=== PATIENT | male | born 1965 | race Hispanic/Latino ===

== ENCOUNTER 2017-10-22 17:42 | Emergency (ER) | payer SELFPAY ==
--- NOTE | 2017-10-22 18:25 | RAD REPORT ---
EXAM DESCRIPTION: Anil Single View10/22/2017 6:10 pm CLINICAL HISTORY: Chest pain COMPARISON: August 2016 FINDINGS: The lungs appear clear of acute infiltrate. The heart is normal size. A small left pleura l effusion may be present
--- NOTE | 2017-10-22 18:29 | EKG ---
Test Date: 2017-10-22 Test Time: 17:50:42 Lyric Writer: REJI MEASUREMENT RESULTS: Intervals: Rate: 89 FL: 142 QRSD: 120 QT: 378 QTc: 459 [place]: P: 36 FL: 142 QRS: 254 T: -8 INTERPRETIVE STATEMENTS: Normal sinus rhythm Right bundle branch block Inferior infarct, age undetermined Abnormal ECG Compared to ECG 09/05/2016 10:28:38 Myocardial infarct finding now present Electronically Signed On 10-22-17 18:28:51 CDT by Zeeshan Holguin
[2017-10-22 18:32] LABS: Absolute Monocytes 0.8 K/uL (0.1-1.3); Absolute Neutrophil 6.7 K/uL (1.8-8.0); Eosinophils % 2.5 % (0-4.4); Hematocrit 39.4 % (39.6-49.0); Lymphocytes % 20.6 % (15.3-44.8); MCH 28.2 pg (27.0-35.0); MCV 82.7 fL (80-100); MPV 9.9 fL (7.6-11.3); Monocytes % 7.9 % (3.3-12.3); RBC Red Blood Cell Count 4.77 M/uL (4.33-5.43)
[2017-10-22 18:35] LABS: Protime INR 0.99
[2017-10-22 18:46] LABS: Potassium 3.6 mEq/L (3.6-5.0)
[2017-10-22 18:53] LABS: Albumin 4.1 g/dL (3.2-5.5); Bilirubin Direct 0.1 mg/dL (0-0.2); Bilirubin Total 0.7 mg/dL (0.3-1.2); Magnesium 1.6 mg/dL (1.8-2.5)
[2017-10-22] MEDS ORDERED: HEPARIN/D5W 25,000 UNIT/500 ML BAG IV ONE (19:25)
[2017-10-22] MEDS ORDERED: Magnesium Sulfate 2gm IVPB 2 G/50 ML BAG IV ONE (19:25)
[2017-10-22] MEDS ORDERED: ASPIRIN 81 MG CHEWABLE TABLET ONE (19:25)
[2017-10-22] MEDS ORDERED: FENTANYL CITR 100 MCG/2 ML ONE (19:29)
--- NOTE | 2017-10-22 19:59 | EDPHYS ---
Physician Documentation [facility] Name: Abilio Ling Age: 52 yrs Sex: Male : 1965 Arrival Date: 10/22/2017 Time: 17:51 Bed 8 Private MD: ED Physician Jad Pearson HPI: 10/22 19:13 This 52 yrs old Male presents to ER via EMS with complaints of Chest Pain. jr8 19:13 The patient or guardian reports chest pain that is located primarily in the substernal jr8 area. Onset: acutely, today. The pain does not radiate. Associated signs and symptoms: The patient has no apparent associated signs or symptoms. The chest pain is described as a pressure. Duration: The patient or guardian reports a single episode. Severity of pain: At its worst the pain was moderate. The patient has experienced a previous episode. The patient has been recently seen by a physician:. Patient stated that he had OK this past . Stated that he went to [facility] and was admitted. Had angiogram done but was not able to have stent due to severity of plaquing. Was told he needed to have CABG. Patient stated that they were going back and forth about transferring that weekend for CABG but discharged him on Friday. Today was going to go back to work but was woken up by chest pain today . Historical: - Allergies: 18:00 No Known Allergies; aj1 - Home Meds: 18:00 metformin 500 mg Oral tab 1 tab 2 times per day [Active]; aspirin 81 mg Oral chew 1 tab aj1 once daily [Active]; atorvastatin 40 mg oral tab 1 tab once daily [Active]; clonazepam 1 mg Oral tab 1 tab 2 times per day [Active]; Plavix 75 mg Oral tab 1 tab once daily [Active]; Imdur 30 mg Oral Tb24 1 tab once daily [Active]; Lopressor 25 mg Oral 2 times per day [Active]; - PMHx: 18:00 Anxiety; Diabetes - NIDDM; Hypertension; Myocardial infarction; aj1 - PSHx: 18:00 cardiac cath; aj1 - Immunization history:: Flu vaccine is not up to date. - Social history:: Smoking status: Patient/guardian denies using tobacco. - Ebola Screening: : Patient denies travel to an Ebola-affected area in the 21 days before illness onset. ROS: 19:13 Eyes: Negative for injury, pain, redness, and discharge, ENT: Negative for injury, jr8 pain, and discharge, Neck: Negative for injury, pain, and swelling, Respiratory: Negative for shortness of breath, cough, wheezing, and pleuritic chest pain, Abdomen/GI: Negative for abdominal pain, nausea, vomiting, diarrhea, and constipation, Back: Negative for injury and pain, MS/Extremity: Negative for injury and deformity, Skin: Negative for injury, rash, and discoloration, Neuro: Negative for headache, weakness, numbness, tingling, and seizure. 19:13 Cardiovascular: Positive for chest pain, Negative for edema, orthopnea, palpitations, paroxysmal nocturnal dyspnea. Exam: 19:13 Eyes: Pupils equal round and reactive to light, extra-ocular motions intact. Lids and jr8 lashes normal. Conjunctiva and sclera are non-icteric and not injected. Cornea within normal limits. Periorbital areas with no swelling, redness, or edema. ENT: Nares patent. No nasal discharge, no septal abnormalities noted. Tympanic membranes are normal and external auditory canals are clear. Oropharynx with no redness, swelling, or masses, exudates, or evidence of obstruction, uvula midline. Mucous membranes moist. Neck: Trachea midline, no thyromegaly or masses palpated, and no cervical lymphadenopathy. Supple, full range of motion without nuchal rigidity, or vertebral point tenderness. No Meningismus. Cardiovascular: Regular rate and rhythm with a normal S1 and S2. No gallops, murmurs, or rubs. Normal PMI, no JVD. No pulse deficits. Respiratory: Lungs have equal breath sounds bilaterally, clear to auscultation and percussion. No rales, rhonchi or wheezes noted. No increased work of breathing, no retractions or nasal flaring. Abdomen/GI: Soft, non-tender, with normal bowel sounds. No distension or tympany. No guarding or rebound. No evidence of tenderness throughout. Back: No spinal tenderness. No costovertebral tenderness. Full range of motion. Skin: Warm, dry with normal turgor. Normal color with no rashes, no lesions, and no evidence of cellulitis. Bruising noted to right arm from angiogram MS/ Extremity: Pulses equal, no cyanosis. Neurovascular intact. Full, normal range of motion. Neuro: Awake and alert, GCS 15, oriented to person, place, time, and situation. Cranial nerves II-XII grossly intact. Motor strength 5/5 in all extremities. Sensory grossly intact. Cerebellar exam normal. Normal gait. Vital Signs: 17:52 BP 122 / 81; Pulse 87; Resp 24; Temp 98.1(O); Pulse Ox 96% on R/A; Weight 80.74 kg (R); aj1 Height 5 ft. 7 in. (170.18 cm) (R); Pain 3/10; 19:20 Weight 81.06 kg (M); lp1 19:30 BP 118 / 91; Pulse 82; Resp 16; Pulse Ox 98% on R/A; lp1 20:00 BP 120 / 82; Pulse 76; Resp 18; Temp 97.6(O); Pulse Ox 98% on R/A; lp1 21:00 BP 116 / 78; Pulse 77; Resp 14; Pulse Ox 96% on R/A; lp1 21:48 BP 134 / 84; Pulse 78; Resp 20 S; Temp 97.4; Pulse Ox 98% on R/A; Pain 7/10; bb 19:20 Body Mass Index 27.99 (81.06 kg, 170.18 cm) lp1 MDM: 17:54 Patient medically screened. jr8 19:55 The patient was not given aspirin in the Emergency Department. Administered by EMS. jr8 Data reviewed: vital signs, nurses notes, lab test result(s), EKG, radiologic studies, plain films, and as a result, I will admit patient. Data interpreted: Pulse oximetry: on room air is 96 %. Interpretation: normal. Counseling: I had a detailed discussion with the patient and/or guardian regarding: the historical points, exam findings, and any diagnostic results supporting the discharge/admit diagnosis, lab results, radiology results, the need to transfer to another facility, [facility] does not immediately have the required specialist. ED course: Based on history and recent events and procedures. It would be best to send to [facility] for further evaluation by cardiology and if needed for CABG. [facility] agrees and will See patient. 10/22 17:54 Order name: Basic Metabolic Panel; Complete Time: 19:05 jr8 10/22 17:54 Order name: BNP; Complete Time: 19:05 10/22 17:54 Order name: CBC with Diff; Complete Time: 19:10/22 17:54 Order name: LFT's; Complete Time: 19:05 10/22 17:54 Order name: Magnesium; Complete Time: 19:05 10/22 17:54 Order name: PT-INR; Complete Time: 19:10/22 17:54 Order name: Troponin (emerg Dept Use Only); Complete Time: 19:05 10/22 17:54 Order name: XRAY Chest (1 view); Complete Time: 18:28 10/22 17:54 Order name: EKG; Complete Time: 17:54 10/22 17:54 Order name: Cardiac monitoring; Complete Time: 18:05 10/22 17:54 Order name: EKG - Nurse/Tech; Complete Time: 18:05 10/22 17:54 Order name: IV Saline Lock; Complete Time: 18:10/22 17:54 Order name: Labs collected and sent; Complete Time: 18:10/22 17:54 Order name: O2 Per Protocol; Complete Time: 18:05 10/22 17:54 Order name: O2 Sat Monitoring; Complete Time: 18:05 Administered Medications: 19:40 Drug: Magnesium Sulfate 2 grams Route: IVPB; Infused Over: 2 hrs; Site: left lp1 antecubital; 21:30 Follow up: IV Status: Completed infusion lp1 19:40 Drug: Heparin (OK Drip) 12 units/kg/hr - (HEParin 29205 units, D5W 500 ml) lp1 {Co-Signature: devin (Lexii Tony RN).} Route: IV; Rate: calculated rate; Site: left wrist; 21:50 Follow up: IV Status: Infusion continued upon transfer bb 19:40 Drug: fentaNYL (PF) 50 mcg Route: IVP; Site: left wrist; lp1 21:30 Follow up: Response: Pain is decreased lp1 21:49 Follow up: Response: No adverse reaction devin 19:51 Not Given (Given by EMS): Aspirin Chewable Tablet 324 mg PO once; 81 mg tablets x 4 lp1 21:52 Drug: fentaNYL (PF) 50 mcg Route: IVP; Site: left antecubital; lp1 21:52 Follow up: Response: medication adminstered on transfer to [place] [id number] Point of Care Testing: Blood Glucose: 21:25 Blood Glucose: 119 mg/dL; lp1 Ranges: Critical Glucose Levels:Adult <50 mg/dl or >400 mg/dl <40 mg/dl or >180 mg/dl Disposition: 10/23 07:29 Co-signature as Attending Physician, Jad Pearson MD I agree with the assessment and kdr plan of care. Disposition: 10/22/17 19:58 Transfer ordered to [facility]. Diagnosis are Unstable angina, Non-ST elevation (NSTEMI) myocardial infarction. - Reason for transfer: Higher level of care. - Accepting physician is Dr. Murrell. - Condition is Stable. - Problem is new. - Symptoms are unchanged. Signatures: Dispatcher [employer] EDMS Karen Curtis RN RN aj1 Jad Pearson MD MD kdr Little Merino RN RN lp1 Ulises Ramirez PA PA jr8 Lexii Tony RN bb Lexii Tony RN bb Corrections: (The following items were deleted from the chart) 10/22 19:17 19:13 Eyes: Pupils equal round and reactive to light, extra-ocular motions intact. Lids jr8 and lashes normal. Conjunctiva and sclera are non-icteric and not injected. Cornea within normal limits. Periorbital areas with no swelling, redness, or edema. ENT: Nares patent. No nasal discharge, no septal abnormalities noted. Tympanic membranes are normal and external auditory canals are clear. Oropharynx with no redness, swelling, or masses, exudates, or evidence of obstruction, uvula midline. Mucous membranes moist. Neck: Trachea midline, no thyromegaly or masses palpated, and no cervical lymphadenopathy. Supple, full range of motion without nuchal rigidity, or vertebral point tenderness. No Meningismus. Cardiovascular: Regular rate and rhythm with a normal S1 and S2. No gallops, murmurs, or rubs. Normal PMI, no JVD. No pulse deficits. Respiratory: Lungs have equal breath sounds bilaterally, clear to auscultation and percussion. No rales, rhonchi or wheezes noted. No increased work of breathing, no retractions or nasal flaring. Abdomen/GI: Soft, non-tender, with normal bowel sounds. No distension or tympany. No guarding or rebound. No evidence of tenderness throughout. Back: No spinal tenderness. No costovertebral tenderness. Full range of motion. Skin: Warm, dry with normal turgor. Normal color with no rashes, no lesions, and no evidence of cellulitis. MS/ Extremity: Pulses equal, no cyanosis. Neurovascular intact. Full, normal range of motion. Neuro: Awake and alert, GCS 15, oriented to person, place, time, and situation. Cranial nerves II-XII grossly intact. Motor strength 5/5 in all extremities. Sensory grossly intact. Cerebellar exam normal. Normal gait. jr8 19:58 19:58 10/22/2017 19:58 Transfer ordered to [facility]. Diagnosis is jr8 Unstable angina. Reason for transfer: Higher level of care. Accepting physician is Dr. Murrell. Condition is Stable. Problem is new. Symptoms are unchanged. jr8 21:53 19:58 10/22/2017 19:58 Transfer ordered to [facility]. Diagnosis is lp1 Unstable angina; Non-ST elevation (NSTEMI) myocardial infarction. Reason for transfer: Higher level of care. Accepting physician is Dr. Murrell. Condition is Stable. Problem is new. Symptoms are unchanged. jr8
--- NOTE | 2017-10-22 19:59 | ER ---
Nurse's Notes [facility] Name: Abilio Ling Age: 52 yrs Sex: Male : 1965 Arrival Date: 10/22/2017 Time: 17:51 Bed 8 Private MD: Diagnosis: Unstable angina;Non-ST elevation (NSTEMI) myocardial infarction Presentation: 10/22 17:52 Presenting complaint: EMS states: Pt had a OK 4 days ago, he had a cardiac cath aj1 performed, but they were unable to stent the blockage. He also did not poultry picker his prescriptions when he was discharged because he was unable to afford them. Today he began having pain on the left side of his chest, states the pain is similar to his OK, but is not as bad. Reports nausea and palpitations, denies syncope, diaphoresis, vomiting. Describes pain as a shooting, electric pain. Pt has dark purple bruising to his right arm from his cardiac cath. Patient is also complaining of pain the right arm, and headache. Transition of care: patient was not received from another setting of care. Onset of symptoms was October 22, 2017. Risk Assessment: Do you want to hurt yourself or someone else? Patient reports no desire to harm self or others. Initial Sepsis Screen: Does the patient meet any 2 criteria? No. Patient's initial sepsis screen is negative. Does the patient have a suspected source of infection? No. Patient's initial sepsis screen is negative. Care prior to arrival: None. 17:52 Method Of Arrival: EMS: [facility] aj1 17:52 Acuity: KARLA 2 aj1 Triage Assessment: 18:00 General: Appears in no apparent distress. comfortable, Behavior is calm, cooperative, aj1 appropriate for age. Pain: Complains of pain in anterior aspect of left upper chest Pain does not radiate. Pain currently is 3 out of 10 on a pain scale. Quality of pain is described as shooting, Is intermittent, Alleviated by nothing. Aggravated by increased activity. Cardiovascular: Heart tones S1 S2 present Patient's skin is warm and dry. Rhythm is sinus rhythm. Historical: - Allergies: 18:00 No Known Allergies; aj1 - Home Meds: 18:00 metformin 500 mg Oral tab 1 tab 2 times per day [Active]; aspirin 81 mg Oral chew 1 tab aj1 once daily [Active]; atorvastatin 40 mg oral tab 1 tab once daily [Active]; clonazepam 1 mg Oral tab 1 tab 2 times per day [Active]; Plavix 75 mg Oral tab 1 tab once daily [Active]; Imdur 30 mg Oral Tb24 1 tab once daily [Active]; Lopressor 25 mg Oral 2 times per day [Active]; - PMHx: 18:00 Anxiety; Diabetes - NIDDM; Hypertension; Myocardial infarction; aj1 - PSHx: 18:00 cardiac cath; aj1 - Immunization history:: Flu vaccine is not up to date. - Social history:: Smoking status: Patient/guardian denies using tobacco. - Ebola Screening: : Patient denies travel to an Ebola-affected area in the 21 days before illness onset. Screenin:02 Abuse screen: Denies threats or abuse. Denies injuries from another. Nutritional aj1 screening: No deficits noted. Tuberculosis screening: No symptoms or risk factors identified. 20:31 Fall Risk None identified. lp1 Assessment: 17:55 Reassessment: EKG at bedside. aj1 18:01 Reassessment: CXR at bedside. aj1 18:02 General: Appears in no apparent distress. uncomfortable, Behavior is calm, cooperative, aj1 appropriate for age. Pain: Complains of pain in anterior aspect of left upper chest Pain does not radiate. Pain currently is 3 out of 10 on a pain scale. Quality of pain is described as shooting, Pain began 2 hours ago. Is intermittent, Alleviated by nothing. Aggravated by increased activity. Neuro: Level of Consciousness is awake, alert, obeys commands, Oriented to person, place, time, situation, Speech is normal, Facial symmetry appears normal. Cardiovascular: Reports chest pain, shortness of breath, Heart tones S1 S2 present Patient's skin is warm and dry. Rhythm is sinus rhythm Chest pain is described as Pain is 3 out of 10 on a pain scale. quality is shooting, electric pain is located in left anterior chest wall began 2 hours prior to arrival episodes are intermittent is aggravated by activity. Respiratory: Reports shortness of breath Airway is patent Respiratory effort is even, unlabored, Respiratory pattern is regular, symmetrical, Breath sounds are clear bilaterally. GI: No signs and/or symptoms were reported involving the gastrointestinal system. : No signs and/or symptoms were reported regarding the genitourinary system. EENT: No signs and/or symptoms were reported regarding the EENT system. Derm: Skin is pink, warm \T\ dry. normal, Bruising that is dark purple, on right bicep. Musculoskeletal: No signs and/or symptoms reported regarding the musculoskeletal system. Circulation, motion, and sensation intact. 19:15 Reassessment: Patient is alert, oriented x 3, equal unlabored respirations, skin lp1 warm/dry/pink. States pain to R arm from prior cardiac cath. 20:30 Reassessment: Report called to Stefan for patient transfer to [facility] 1043. lp1 21:29 Reassessment: Patient and/or family updated on plan of care and expected duration. Pain lp1 level reassessed. Patient resting, eyes closed, respirations unlabored. 21:44 Reassessment: EMS at bedside for transfer of pt to [facility] pt is A\T\O x 4, bb resp unlabored, IV site intact, patent, with Heparin infusing. Pt c/o pain to right arm EDP notified. Vital Signs: 17:52 BP 122 / 81; Pulse 87; Resp 24; Temp 98.1(O); Pulse Ox 96% on R/A; Weight 80.74 kg (R); aj1 Height 5 ft. 7 in. (170.18 cm) (R); Pain 3/10; 19:20 Weight 81.06 kg (M); lp1 19:30 BP 118 / 91; Pulse 82; Resp 16; Pulse Ox 98% on R/A; lp1 20:00 BP 120 / 82; Pulse 76; Resp 18; Temp 97.6(O); Pulse Ox 98% on R/A; lp1 21:00 BP 116 / 78; Pulse 77; Resp 14; Pulse Ox 96% on R/A; lp1 21:48 BP 134 / 84; Pulse 78; Resp 20 S; Temp 97.4; Pulse Ox 98% on R/A; Pain 7/10; bb 19:20 Body Mass Index 27.99 (81.06 kg, 170.18 cm) lp1 ED Course: 17:51 Patient arrived in ED. aj1 17:53 Ulises Ramirez PA is PHCP. jr8 17:53 Jad Pearson MD is Attending Physician. jr8 17:55 Triage completed. aj1 18:00 Arm band placed on. aj1 18:02 Patient has correct armband on for positive identification. Bed in low position. Call aj1 light in reach. Side rails up X 1. cafeteria monitor on. Pulse ox on. NIBP on. 18:02 EKG done, by audio video tech. reviewed by Jad Pearson MD. sm3 18:02 No provider procedures requiring assistance completed. Maintain EMS IV. Dressing aj1 intact. Good blood return noted. Site clean \T\ dry. Gauge \T\ site: 20 g left AC. Patient maintains SpO2 saturation greater than 95% on room air. 18:05 Karen Curtis, RN is Primary Nurse. aj1 18:09 X-ray completed. Portable x-ray completed in exam room. Patient tolerated procedure ml well. 18:10 XRAY Chest (1 view) In Process Unspecified. EDMS 19:[address] [facility] with Margaret at the transfer center. eb 19:34 Margaret from the transfer called to say she is waiting for the property condition assessor doctor to eb return her page. 19:36 Dr. Duarte connected with [facility] for patient consultation for patient transfer. eb 19:49 connected the hospitalist from [facility] with [facility] for patient eb transfer consultation. 19:58 administrative approval give by Margaret Chin Marketing Analytics Specialist , Patient to go to Rm 1043. Report to be called to [phone]. 21:50 Patient transferred, IV remains in place. bb Administered Medications: 19:40 Drug: Magnesium Sulfate 2 grams Route: IVPB; Infused Over: 2 hrs; Site: left lp1 antecubital; 21:30 Follow up: IV Status: Completed infusion lp1 19:40 Drug: Heparin (OK Drip) 12 units/kg/hr - (HEParin 70717 units, D5W 500 ml) lp1 {Co-Signature: devin (Lexii Tony RN).} Route: IV; Rate: calculated rate; Site: left wrist; 21:50 Follow up: IV Status: Infusion continued upon transfer bb 19:40 Drug: fentaNYL (PF) 50 mcg Route: IVP; Site: left wrist; lp1 21:30 Follow up: Response: Pain is decreased lp1 21:49 Follow up: Response: No adverse reaction bb 19:51 Not Given (Given by EMS): Aspirin Chewable Tablet 324 mg PO once; 81 mg tablets x 4 lp1 21:52 Drug: fentaNYL (PF) 50 mcg Route: IVP; Site: left antecubital; lp1 21:52 Follow up: Response: medication adminstered on transfer to [facility] lp1 Point of Care Testing: Blood Glucose: 21:25 Blood Glucose: 119 mg/dL; lp1 Ranges: Outcome: 19:58 ER care complete, transfer ordered by MD. toribio 20:32 Condition: stable lp1 20:32 Instructed on the need for transfer. 21:50 Transferred by ground EMS to [facility], Transfer form completed. bb X-rays sent w/ patient. 21:53 Patient left the ED. lp1 Signatures: Dispatcher [employer] EDMS Karen Curtis RN RN aj1 Lexii Tony RN RN bb Giulia Tamayo Laura, RN RN lp1 Ulises Ramirez PA PA jr8 Bernadette Cummings Shakira 3 Lexii beltran Corrections: (The following items were deleted from the chart) 18:05 18:02 Derm: No signs and/or symptoms reported regarding the dermatologic system. Skin aj1 is pink, warm \T\ dry. normal, aj1 21:49 21:44 Reassessment: [facility] at bedside for transfer of pt to [facility] pt is A\T\O bb x 4, resp unlabored, IV site intact, patent, with Heparin infusing. bb
== END 2017-10-22 21:53 | disposition short-term general hospital (02) ==
LOC: ER 17:42
DX: I22.2 Subsequent non-ST elevation (NSTEMI) myocardial infarction (principal); I23.7 Postinfarction angina; I21.9 Acute myocardial infarction, unspecified; F41.9 Anxiety disorder, unspecified; E11.9 Type 2 diabetes mellitus without complications; I10 Essential (primary) hypertension
CPT/HCPCS: 36415; 71045; 80048; 80076; 82962; 83735; 83880; 84484; 85025; 85610; 93005; 99285; J3010; J3475

== ENCOUNTER 2018-01-22 13:05 | Inpatient (IN) | payer SELFPAY ==
--- NOTE | 2018-01-22 13:45 | RAD REPORT ---
EXAM DESCRIPTION: CT - Head Brain Wo Cont - 01/22/2018 1:34 pm CLINICAL HISTORY: Dizziness;Headache COMPARISON: Head Brain Wo Cont dated 06/14/2016 TECHNIQUE: All CT scans are performed using dose optimization technique as appropriate and may inclu de automated exposure control or mA/KV adjustment according to patient size. FINDINGS: No intracranial hemorrhage, hydrocephalus or extra-axial fluid collection.No areas of brai n edema or evidence of midline shift. The paranasal sinuses and mastoids are clear. The calvarium is intact. IMPRESSION: No acute intracranial abnormality.
[2018-01-22] MEDS ORDERED: ACETAMINOPHEN 325 MG TABLET ONE (15:10)
[2018-01-22 15:15] LABS: Urine Blood TRACE (NEG); Urine Glucose TRACE (NEG); Urine Protein 3+ (NEG)
[2018-01-22 15:16] LABS: Calcium Oxalate Crystals- Ur FEW (NONE SEEN); Urine Bacteria 20-50 /HPF (NONE SEEN); Urine Culture Reflex Order NOT NEEDED; Urine RBC NONE SEEN /HPF (NONE SEEN)
[2018-01-22 15:17] LABS: Urine Amorphous Sediment 1+ /HPF (NONE SEEN)
[2018-01-22 15:20] LABS: Protime INR 1.05
[2018-01-22 15:33] LABS: ALT/SGPT 94 U/L (12-78); AST/SGOT 42 U/L (15-37); Albumin 3.9 g/dL (3.4-5.0); Alkaline Phosphatase 110 U/L (45-117); BUN Blood Urea Nitrogen 22 mg/dL (7-18); Bicarbonate 26 mmol/L (21-32); Bilirubin Direct 0.1 mg/dL (0-0.2); Bilirubin Total 0.3 mg/dL (0.2-1.0); CKMB Creatine Kinase MB < 1.0 ng/mL (0.3-3.6); Creatine Phosphokinase 51 U/L (39-308); Glucose Level 298 mg/dL (74-106); Lipase 120 U/L (73-393); Potassium 3.9 mmol/L (3.5-5.1); Protein, Total 7.6 g/dL (6.4-8.2); Sodium Level 138 mmol/L (136-145)
[2018-01-22 15:36] LABS: Absolute Lymphocytes (CBC) 1.4 K/uL (0.7-4.9); Absolute Monocytes 0.7 K/uL (0.1-1.3); Absolute Neutrophil 14.8 K/uL (1.8-8.0); Basophils % 0.6 % (0-1.3); Eosinophils % 0.5 % (0-4.4); Hematocrit 43.2 % (39.6-49.0); Lymphocytes % 8.4 % (15.3-44.8); MCH 26.5 pg (27.0-35.0); MCV 79.5 fL (80-100); MPV 10.6 fL (7.6-11.3); Monocytes % 4.3 % (3.3-12.3); RBC Red Blood Cell Count 5.43 M/uL (4.33-5.43)
--- NOTE | 2018-01-22 16:20 | ER ---
Nurse's Notes [facility] Name: Abilio Ling Age: 52 yrs Sex: Male : 1965 Arrival Date: 01/22/2018 Time: 13:11 Bed 24 Private MD: Diagnosis: Acute kidney failure;Dehydration;Hyperglycemia, unspecified Presentation: 01/22 13:14 Presenting complaint: EMS states: about 45 minutes ago, while at work, the patient kr2 started having nausea, vomiting, dizziness and weakness. He is a diabetic, blood glucose on site was 312. He had a quadruple bypass in October. Transition of care: patient was not received from another setting of care. Onset of symptoms was January 22, 2018 at 12:30. Risk Assessment: Do you want to hurt yourself or someone else? Patient reports no desire to harm self or others. Initial Sepsis Screen: Does the patient meet any 2 criteria? No. Patient's initial sepsis screen is negative. Does the patient have a suspected source of infection? No. Patient's initial sepsis screen is negative. Care prior to arrival: Medication(s) given: Normal saline infusion, 400mL IV initiated. 20 GA, in the right forearm, Glucose check: 312. 13:14 Method Of Arrival: EMS: [facility] kr2 13:14 Acuity: KARLA 3 kr2 Triage Assessment: 13:22 General: Appears in no apparent distress. comfortable, well developed, well nourished, kr2 Behavior is calm, cooperative, appropriate for age. Pain: Denies pain. EENT: Nares are clear bilaterally Oral mucosa is dry. Neuro: Level of Consciousness is awake, alert, obeys commands, Oriented to person, place, time, situation, Appropriate for age. Cardiovascular: Capillary refill < 3 seconds in bilateral fingers Patient's skin is warm and dry. Respiratory: Airway is patent Respiratory effort is even, unlabored, Respiratory pattern is regular, symmetrical. GI: Abdomen is flat, non-distended, Bowel sounds present X 4 quads. Abd is soft and non tender X 4 quads. Reports nausea, vomiting, since 1230 today. : Denies burning with urination. Derm: Skin is intact, is healthy with good turgor, Skin is dry, Skin is pale, Skin temperature is warm. Musculoskeletal: Circulation, motion, and sensation intact. Historical: - Allergies: 13:21 No Known Allergies; kr2 - Home Meds: 13:21 metformin 1,000 mg oral tab 1 tab 2 times per day [Active]; atorvastatin 40 mg Oral tab kr2 1 tab once daily [Active]; Lopressor 50 mg oral tab once daily [Active]; - PMHx: 13:21 Anxiety; Diabetes - NIDDM; Hypertension; Myocardial infarction; kr2 - PSHx: 13:21 CABG; cardiac cath; kr2 - Immunization history:: Adult Immunizations unknown. - Social history:: Smoking status: Patient/guardian denies using tobacco. - Ebola Screening: : No symptoms or risks identified at this time. - Family history:: not pertinent. - Hospitalizations: : No recent hospitalization is reported. Screenin:24 Abuse screen: Denies threats or abuse. Denies injuries from another. Nutritional kr2 screening: No deficits noted. Tuberculosis screening: No symptoms or risk factors identified. Fall Risk None identified. Assessment: 13:15 General: General: See triage assessment. kr2 14:40 Reassessment: Patient appears in no apparent distress at this time. Patient and/or kr2 family updated on plan of care and expected duration. Pain level reassessed. Patient is alert, oriented x 3, equal unlabored respirations, skin warm/dry/pink. Patient denies pain at this time. Patient states feeling better. 15:20 Reassessment: Patient appears in no apparent distress at this time. Patient and/or ss family updated on plan of care and expected duration. Pain level reassessed. Patient is alert, oriented x 3, equal unlabored respirations, skin warm/dry/pink. Patient reports he still feels a little shaky/ weak. Rechecked BGL 272. Pt is grateful for care received. Call light remains within reach Patient denies pain at this time. 16:01 Reassessment: Patient appears in no apparent distress at this time. Patient and/or kr2 family updated on plan of care and expected duration. Pain level reassessed. Patient is alert, oriented x 3, equal unlabored respirations, skin warm/dry/pink. Patient given ice water with physician approval. 16:58 Reassessment: Patient appears in no apparent distress at this time. Patient and/or kr2 family updated on plan of care and expected duration. Pain level reassessed. Patient is alert, oriented x 3, equal unlabored respirations, skin warm/dry/pink. Per Dr. Doan, it is ok for patient to eat at this time. Given sandwich with ice water. 18:00 Reassessment: Patient appears in no apparent distress at this time. Patient and/or kr2 family updated on plan of care and expected duration. Pain level reassessed. Patient is alert, oriented x 3, equal unlabored respirations, skin warm/dry/pink. Patient denies pain at this time. Patient states feeling better. Vital Signs: 13:24 BP 120 / 82; Pulse 101; Resp 19; Temp 98.9; Pulse Ox 97% on R/A; Pain 0/10; kr2 15:19 BP 103 / 72; Pulse 92; Resp 16; Pulse Ox 100% on R/A; Pain 0/10; ss 17:04 BP 137 / 81; Pulse 90; Resp 16; Pulse Ox 99% on R/A; kr2 ED Course: 13:11 Patient arrived in ED. rn 13:11 Augustus Doan MD is Attending Physician. rn 13:14 Nelida Farrell, SAMANTHA is Primary Nurse. kr2 13:17 Triage completed. kr2 13:24 Arm band placed on left wrist. kr2 13:25 Patient has correct armband on for positive identification. Bed in low position. Call kr2 light in reach. Side rails up X2. surveillance monitor on. Pulse ox on. NIBP on. Door closed. Head of bed elevated. 13:25 Maintain EMS IV. Dressing intact. Good blood return noted. Site clean \T\ dry. Gauge \T\ aris 3 site: 20 gauge in right forearm. Flushed. 13:25 Initial lab(s) drawn, by me, sent to lab. First set of blood cultures drawn via EMS IV jp3 in right forearm. 13:[address] via stretcher. 13:32 EKG done, by x [employer] electronics wiring technician. reviewed by Augustus Doan MD. 3 13:34 CT Head Brain wo Cont In Process Unspecified. EDMS 13:39 Procalcitonin Sent. jp3 14:45 Lab(s) recollected, by me, sent to lab. Urine collected: clean catch specimen, clear, jp3 regis colored, Amount Voided: 15mL. 14:45 Second set of blood cultures drawn by me. jp3 14:55 Procalcitonin Sent. jp3 14:55 Blood Culture Adult (2) Sent. jp3 14:55 Urine Microscopic Only Sent. jp3 14:55 Protime (+inr) Sent. jp3 14:55 Basic Metabolic Panel Sent. jp3 14:55 CBC with Diff Sent. jp3 14:55 Ckmb Sent. jp3 14:55 CPK Sent. jp3 14:55 Ptt, Activated Sent. jp3 14:56 Troponin (emerg Dept Use Only) Sent. jp3 16:19 Tanvi Fernandez MD is Hospitalizing Provider. rn 17:35 Warm blanket given. Pillow given. Diet tray given. Diet:. jp3 18:20 No provider procedures requiring assistance completed. Patient admitted, IV remains in kr2 place. Administered Medications: 14:11 Drug: NS 0.9% 1000 ml Route: IV; Rate: 1000 ml; Site: right forearm; kr2 15:00 Follow up: Response: No adverse reaction; IV Status: Completed infusion kr2 15:03 CANCELLED (Duplicate Order): Aspirin Chewable Tablet 324 mg PO once; 81 mg tablets x 4 rn 15:09 Drug: Tylenol 650 mg Route: PO; kr2 17:03 Follow up: Response: No adverse reaction; Pain is decreased kr2 Point of Care Testing: Blood Glucose: 13:25 Blood Glucose: 285 mg/dL; kr2 15:19 Blood Glucose: 272 mg/dL; Ranges: Outcome: 16:19 Decision to Hospitalize by Provider. rn 18:20 Patient left the ED. kr2 18:20 Admitted to Tele kr2 18:20 Condition: stable 18:20 Instructed on the need for admit, Demonstrated understanding of instructions. Signatures: Dispatcher [employer] Augustus Julian MD MD rn Smirch, Shelby, RN RN ss Warren, Shannon sw Reaves, Karey, RN RN kr2 Josie Tena 3 Ian Rogers jp3 Corrections: (The following items were deleted from the chart) 17:05 16:58 Reassessment: Per Dr. Doan, it is ok for patient to eat at this time. Given kr2 sandwich with ice water kr2
--- NOTE | 2018-01-22 16:20 | EDPHYS ---
Physician Documentation [facility] Name: Abilio Ling Age: 52 yrs Sex: Male : 1965 Arrival Date: 01/22/2018 Time: 13:11 Bed 24 Private MD: ED Physician Augustus Doan HPI: 01/22 14:25 This 52 yrs old Male presents to ER via EMS with complaints of nausea, rn vomiting, shaking. 14:25 The patient presents to the emergency department with nausea, vomiting. Onset: The rn symptoms/episode began/occurred just prior to arrival. Possible causes: unknown. The symptoms are aggravated by nothing. The symptoms are alleviated by nothing. Severity of symptoms: At their worst the symptoms were moderate in the emergency department the symptoms have improved. The patient has not experienced similar symptoms in the past. Reports at work, had eaten a donut, just started back to work, sugar has been high, in 300s, walks around a lot at work, felt nausea, threw up once, and felt generalized weakness and lightheaded, brought in for evaluation. Had bypass this past year, but denies chest pain/sob. No abd pain.. Historical: - Allergies: 13:21 No Known Allergies; kr2 - Home Meds: 13:21 metformin 1,000 mg oral tab 1 tab 2 times per day [Active]; atorvastatin 40 mg Oral tab kr2 1 tab once daily [Active]; Lopressor 50 mg oral tab once daily [Active]; - PMHx: 13:21 Anxiety; Diabetes - NIDDM; Hypertension; Myocardial infarction; kr2 - PSHx: 13:21 CABG; cardiac cath; kr2 - Immunization history:: Adult Immunizations unknown. - Social history:: Smoking status: Patient/guardian denies using tobacco. - Ebola Screening: : No symptoms or risks identified at this time. - Family history:: not pertinent. - Hospitalizations: : No recent hospitalization is reported. ROS: 14:25 Constitutional: Negative for fever, and weight loss, Eyes: Negative for injury, pain, rn redness, and discharge, Neck: Negative for injury, pain, and swelling, Cardiovascular: Negative for chest pain, palpitations, and edema, Respiratory: Negative for shortness of breath, cough, wheezing, and pleuritic chest pain, Abdomen/GI: Negative for abdominal pain, and constipation, MS/Extremity: Negative for injury and deformity, Skin: Negative for injury, rash, and discoloration, Neuro: Negative for headache, numbness, tingling, and seizure. Exam: 14:25 Constitutional: This is a well developed, well nourished patient who is awake, alert, rn and in no acute distress. Head/Face: Normocephalic, atraumatic. Eyes: Pupils equal round and reactive to light, extra-ocular motions intact. Lids and lashes normal. Conjunctiva and sclera are non-icteric and not injected. Cornea within normal limits. Periorbital areas with no swelling, redness, or edema. ENT: dry MM Neck: Trachea midline, no thyromegaly or masses palpated, and no cervical lymphadenopathy. Supple, full range of motion without nuchal rigidity, or vertebral point tenderness. No Meningismus. Cardiovascular: Regular rate and rhythm with a normal S1 and S2. No gallops, murmurs, or rubs. Normal PMI, no JVD. No pulse deficits. Respiratory: Lungs have equal breath sounds bilaterally, clear to auscultation and percussion. No rales, rhonchi or wheezes noted. No increased work of breathing, no retractions or nasal flaring. Abdomen/GI: Soft, non-tender, with normal bowel sounds. No distension or tympany. No guarding or rebound. No evidence of tenderness throughout. MS/ Extremity: Pulses equal, no cyanosis. Neurovascular intact. Full, normal range of motion. Equal circumference. Neuro: Awake and alert, GCS 15, oriented to person, place, time, and situation. Cranial nerves II-XII grossly intact. Motor strength 5/5 in all extremities. Sensory grossly intact. Cerebellar exam normal. Vital Signs: 13:24 BP 120 / 82; Pulse 101; Resp 19; Temp 98.9; Pulse Ox 97% on R/A; Pain 0/10; kr2 15:19 BP 103 / 72; Pulse 92; Resp 16; Pulse Ox 100% on R/A; Pain 0/10; ss 17:04 BP 137 / 81; Pulse 90; Resp 16; Pulse Ox 99% on R/A; kr2 MDM: 13:11 Patient medically screened. rn 16:17 Differential diagnosis: viral gastroenteritis, gastroenteritis, hyperglycemia, acute director international failure, arrythmia. Data reviewed: vital signs, nurses notes, lab test result(s), EKG, radiologic studies, CT scan, and as a result, I will admit patient. Counseling: I had a detailed discussion with the patient and/or guardian regarding: the historical points, exam findings, and any diagnostic results supporting the discharge/admit diagnosis, lab results, radiology results, the need for further work-up and treatment in the hospital. Response to treatment: the patient's symptoms have mildly improved after treatment, and as a result, I will admit patient. Admission orders: after a detailed discussion of the patient's condition and case, the admit orders are written by me. ED course: Pt with acute renal failure, uncontrolled diabetes, and ECG changes of twave inversions anterior leads compared to previous ECG earlier in year.. 01/22 13:12 Order name: Urine Microscopic Only; Complete Time: 15: rn 01/22 13:12 Order name: Protime (+inr); Complete Time: 15:36 rn 01/22 13:12 Order name: Basic Metabolic Panel; Complete Time: 15:36 rn 01/22 13:12 Order name: CBC with Diff; Complete Time: 15:57 rn 01/22 13:12 Order name: Ckmb; Complete Time: 15:36 rn 01/22 13:12 Order name: CPK; Complete Time: 15:36 rn 01/22 13:12 Order name: CT Head Brain wo Cont; Complete Time: 13:47 rn 01/22 13:12 Order name: Hepatic Function; Complete Time: 15:36 rn 01/22 13:12 Order name: Lipase; Complete Time: 15:36 rn 01/22 13:12 Order name: Ptt, Activated; Complete Time: 15:36 rn 01/22 13:12 Order name: Troponin (emerg Dept Use Only); Complete Time: 15:36 rn 01/22 13:12 Order name: Blood Culture Adult (2) rn 01/22 13:12 Order name: Procalcitonin; Complete Time: 15:36 rn 01/22 15:09 Order name: Urine Dipstick--Ancillary (enter results); Complete Time: 15:26 eb 01/22 13:12 Order name: EKG; Complete Time: 13:12 rn 01/22 13:12 Order name: Cardiac monitoring; Complete Time: 13: rn 01/22 13:12 Order name: EKG - Nurse/Tech; Complete Time: 13:29 rn 01/22 13:12 Order name: IV Saline Lock; Complete Time: 13: rn 01/22 13:12 Order name: Labs collected and sent; Complete Time: 13:29 rn 01/22 13:12 Order name: NPO; Complete Time: 13:26 rn 01/22 13:12 Order name: O2 Per Protocol; Complete Time: 13: rn 01/22 13:12 Order name: O2 Sat Monitoring; Complete Time: 13: rn 01/22 13:12 Order name: Urine Dipstick-Ancillary (obtain specimen); Complete Time: 15:23 rn 01/22 13:12 Order name: Glucose Level; Complete Time: 13:25 rn 01/22 13:54 Order name: Labs - recollect needed; Complete Time: 14:44 eb 01/22 16:05 Order name: Diet Heart Healthy; Complete Time: 16:05 kr2 Administered Medications: 14:11 Drug: NS 0.9% 1000 ml Route: IV; Rate: 1000 ml; Site: right forearm; kr2 15:00 Follow up: Response: No adverse reaction; IV Status: Completed infusion kr2 15:03 CANCELLED (Duplicate Order): Aspirin Chewable Tablet 324 mg PO once; 81 mg tablets x 4 rn 15:09 Drug: Tylenol 650 mg Route: PO; kr2 17:03 Follow up: Response: No adverse reaction; Pain is decreased kr2 Point of Care Testing: Blood Glucose: 13:25 Blood Glucose: 285 mg/dL; kr2 15:19 Blood Glucose: 272 mg/dL; ss Ranges: Critical Glucose Levels:Adult <50 mg/dl or >400 mg/dl <40 mg/dl or >180 mg/dl Disposition: 01/22/18 16:19 Hospitalization ordered by Tanvi Fernandez for Inpatient Admission. Preliminary diagnosis are Acute kidney failure, Dehydration, Hyperglycemia, unspecified. - Bed requested for Telemetry/MedSurg (Inpatient). - Status is Inpatient Admission. kr2 - Condition is Stable. - Problem is an ongoing problem. - Symptoms have improved. UTI on Admission? No Signatures: Dispatcher [employer] Vidhi Barraza RN RN kl Nieto, Roman, MD MD rn Reaves, Karey, RN RN kr2 Bernadette Cummings Corrections: (The following items were deleted from the chart) 15:03 15:02 Aspirin Chewable Tablet 324 mg PO once; 81 mg tablets x 4 ordered. rn rn 17:34 16:19 Hospitalization Ordered by Tanvi Fernandez MD for Inpatient Admission. Preliminary kl diagnosis is Acute kidney failure; Dehydration; Hyperglycemia, unspecified. Bed requested for Telemetry/MedSurg (Inpatient). Status is Inpatient Admission. Condition is Stable. Problem is an ongoing problem. Symptoms have improved. UTI on Admission? No. rn 18:20 17:34 01/22/2018 16:19 Hospitalization Ordered by Tanvi Fernandez MD for Inpatient kr2 Admission. Preliminary diagnosis is Acute kidney failure; Dehydration; Hyperglycemia, unspecified. Bed requested for Telemetry/MedSurg (Inpatient). Status is Inpatient Admission. Condition is Stable. Problem is an ongoing problem. Symptoms have improved. UTI on Admission? No. kl
--- NOTE | 2018-01-22 16:27 | EKG ---
Test Date: 2018-01-22 Test Time: 13:23:11 Architectural Renderer: REJI MEASUREMENT RESULTS: Intervals: Rate: 98 CA: 130 QRSD: 128 QT: 372 QTc: 474 [place]: P: 43 CA: 130 QRS: 239 T: 41 INTERPRETIVE STATEMENTS: Normal sinus rhythm Right bundle branch block Inferior infarct, age undetermined Abnormal ECG Compared to ECG 10/22/2017 17:50:42 No significant changes Electronically Signed On 01-22-18 16:25:53 CDT by Ashvin Eason
[2018-01-22] MEDS ORDERED: ONDANSETRON 4 MG/2 ML VIAL IV PRN (17:05)
[2018-01-22] MEDS ORDERED: Levofloxacin500mg IV 500 MG/100 ML BAG IV SCH (18:00)
[2018-01-22] MEDS: NA CHLORIDE 0.9% 1,000 ML IV SCH (18:24)
[2018-01-22] MEDS: ZOLPIDEM TARTRATE 10 MG TABLET PO PRN (21:00)
[2018-01-22] MEDS: METOPROLOL TAR 50 MG TAB PO SCH ×2 (21:00)
[2018-01-22] MEDS: INSULIN -REGULAR HUMAN 50 UNIT/0.5 ML ML SQ SCH (21:01)
[2018-01-23 05:44] LABS: Albumin 3.4 g/dL (3.4-5.0); Bilirubin Total 0.4 mg/dL (0.2-1.0); Potassium 3.8 mmol/L (3.5-5.1); Protein, Total 6.8 g/dL (6.4-8.2)
[2018-01-23 05:49] LABS: Absolute Lymphocytes (CBC) 1.9 K/uL (0.7-4.9); Absolute Monocytes 0.9 K/uL (0.1-1.3); Absolute Neutrophil 6.3 K/uL (1.8-8.0); Basophils % 0.8 % (0-1.3); Eosinophils % 1.8 % (0-4.4); Hematocrit 37.1 % (39.6-49.0); Lymphocytes % 20.1 % (15.3-44.8); MCH 27.3 pg (27.0-35.0); MCV 79.2 fL (80-100); Monocytes % 10.1 % (3.3-12.3); RBC Red Blood Cell Count 4.68 M/uL (4.33-5.43)
[2018-01-23 06:19] LABS: Urine Appearance CLEAR; Urine Bilirubin NEGATIVE (NEG); Urine Blood NEGATIVE (NEG); Urine Color YELLOW; Urine Glucose NEGATIVE (NEG); Urine Protein NEGATIVE (NEG); Urine Urobilinogen 0.2 mg/dL (0.2-1.0)
[2018-01-23] MEDS: ALPRAZOLAM 0.25 MG TABLET PO PRN ×2 (06:21→17:09)
[2018-01-23] MEDS: NA CHLORIDE 0.9% 1,000 ML IV SCH ×2 (06:22→14:32)
[2018-01-23 07:11] LABS: Urine Microscopic Reflex NO UMIC
--- NOTE | 2018-01-23 07:14 | P.HP ---
Patient History Date of Service: 01/22/18 Reason for admission: [id number] History of Present Illness: H&P dictated Allergies No Known Allergies Allergy (Unverified 06/15/16 13:58) Home Medications: Atorvastatin Calcium 40 mg PO DAILY 01/22/18 Metformin ER [Glucophage ER] 1,000 mg PO BID 01/22/18 Metoprolol Tartrate [Lopressor] 50 mg PO BID 01/22/18 Zolpidem Tartrate [Ambien] 10 mg PO BEDTIME PRN 01/22/18 - Past Medical/Surgical History Has patient received pneumonia vaccine in the past: No Diabetic: Yes -: DM -: [place] -: HTN -: Anxiety -: [place] - Family History Father Medical History: Heart disease, Hypertension, Diabetes Mother Medical History: Heart disease, Kidney disease - Social History Smoking Status: Never smoker Alcohol use: No CD- Drugs: No Caffeine use: Yes Place of Residence: Home Physical Examination - Vital Signs Temperature: 97.3 F Blood Pressure: 122/73 Pulse: 94 Respirations: 18 Pulse Ox (%): 98 - Studies Laboratory Data (last 24 hrs) 01/22/18 14:30: WBC 17.2 H, Hgb 14.4, Hct 43.2, Plt Count 313 01/22/18 14:30: Sodium 138, Potassium 3.9, BUN 22 H, Creatinine 2.40 H, Glucose 298 H, Total Bilirubin 0.3, AST 42 H, ALT 94 H, Alkaline Phosphatase 110, Lipase 120 01/22/18 14:30: PT 12.4, INR 1.05, APTT 30.9 Assessment & Plan - Advance Directives Does patient have a Living Will: No Does patient have a Durable POA for Healthcare: No
[2018-01-23] MEDS: INSULIN -REGULAR HUMAN 50 UNIT/0.5 ML ML SQ SCH ×4 (07:30→21:11)
[2018-01-23] MEDS: ACETAMINOPHEN 500 MG TAB PO PRN (08:08)
[2018-01-23] MEDS: ATORVASTATIN 40 MG TAB PO SCH (08:21)
[2018-01-23] MEDS: METOPROLOL TAR 50 MG TAB PO SCH ×2 (08:21→20:23)
[2018-01-23] MEDS ORDERED: Levofloxacin 250mg IV 250 MG/50 ML BAG IV SCH (18:00)
--- NOTE | 2018-01-23 18:27 | HP ---
Date of Admission: 01/22/2018 Reason For Admission: 1.Patient with hyperglycemia. 2.Patient with intractable nausea and vomiting. 3.Patient with acute kidney injury. History Of Present Illness: This is a 52-year-old gentleman who came to the hospital with intractabl e nausea and vomiting. He recently started working and was found to have hyperglycemia. The patient has not been taking his medication as he has been unemployed. He lives at his father's home, who ap parently is in rehab right now. His father does the shopping and get the groceries and he has had no groceries at his home. He has not been eating or drinking anything. He said he was feeling weaker and feeling debilitated. He has not been able to get any disability and just got a job. He recently had heart surgery in October. He was able to get his medicines for about a month, but since then has n ot been able to get any of his diabetic or cardiac medications. He takes metformin for his diabetes as well as Lipitor and Lopressor and a baby aspirin for his heart disease. He is unable to afford [facility] as he does not have any income. He does admit to getting a job recently. Patient also has had t remors, which he takes an anxiolytic for. He said that normally helps his tremors. He has not been able to afford that neither. He said he lost his job at the intermediate after [place]. Review of Systems: A 10-point review of systems is otherwise unremarkable. Past Medical History: Type 2 diabetes, coronary artery disease, hypertension. Past Surgical History: Coronary artery bypass grafting, cardiac catheterization. Allergies: NO KNOWN DRUG ALLERGIES. Home Medications: He has been on metformin, Lipitor, Lopressor, and aspirin at home. He is not taki ng any of these. Social History: He does not smoke or drink or do any drugs. He has no history of anxiety disorder. Family History: Noncontributory. Physical Examination: Vital Signs: Showed temperature of 98.9, heart rate 100, respirations 18, blood pressure 120/80, sat urating 97% on room air. General: The patient lying in bed, comfortable, in no distress. Awake, alert, oriented to person, p lace, time. HEENT: Normocephalic, atraumatic. Pupils equal, reactive to light. Extraocular muscles intact. No JVP. No bruits. No thyromegaly. TMs normal. Cardiovascular: Regular rate and rhythm. No murmur, rubs, or gallops. Lungs: Clear bilaterally. Abdomen: Soft, nontender, nondistended. Bowel sounds positive. Extremities: No clubbing, no cyanosis, no edema. Neurologic: Cranial nerves 2-12 intact. Motor is 5/5. Sensation intact to light touch and pain. Skin: No deformities. Laboratory Data: Have been reviewed. Assessment: 1.Patient with intractable nausea and vomiting. 2.Acute kidney injury. 3.Hyperglycemia/hyperosmolar nonketotic syndrome. 4.History of coronary artery disease status post coronary artery bypass grafting with noncompliance. 5.History of hypertension. Plan: At this time is, 1.To continue with aggressive IV hydration. 2.Pain control. 3.Angiolytics. 4.Strict blood pressure and blood sugar control. 5.Check hemoglobin A1c. 6.Monitor renal function closely and get a renal ultrasound. 7.GI and DVT prophylaxis. JESSICA Voice ID: [id number]
[2018-01-23] MEDS: ZOLPIDEM TARTRATE 10 MG TABLET PO PRN (21:07)
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
[2018-01-24] MEDS: ACETAMINOPHEN 500 MG TAB PO PRN ×2 (00:20→04:17)
[2018-01-24] MEDS: ALPRAZOLAM 0.25 MG TABLET PO PRN ×2 (04:17→13:49)
--- NOTE | 2018-01-24 04:29 | CON ---
Date of Consultation: 01/23/2018 Consulting Physician: Dr. Fernandez. Reason For Consultation: Elevated BUN and creatinine, fluid management. History Of Present Illness: This is a 52-year-old gentleman with significant past medical history of hypertension, coronary artery disease status post CABG recently in October 2017, diabetes complicated w ith neuropathy, no retinopathy, patient was in his regular state of health. Apparently, has new job, been working hard, not drinking enough water, started to have nausea and vomiting with occasional di arrhea, feeling worse. For that reason, reported to the hospital. In the hospital found to have david vated BUN and creatinine. For that reason, we have been consulted. The patient is not aware about a ny kidney disease before even after the cardiac surgery. On presentation creatinine 2.4. After hydr ation, creatinine down to 1.6. The patient denied taking any nonsteroidal. No IV contrast. Past Medical History: 1.Hypertension. 2.Coronary artery disease, status post CABG back in October 2017. 3.Diabetes, complicated with neuropathy. Allergies: NO KNOWN DRUG ALLERGIES. Social History: Denies smoking. Denies any drinking. Denies drugs abuse. Family History: Positive for hypertension, diabetes, and coronary artery disease. Home Medications: Include atorvastatin, metformin, metoprolol, and Ambien. Review of Systems: Head and Neck: No red eye. No ear pain. GI: Has nausea vomiting. : No polyuria. No dysuria. No hematuria. POWERPLANT OPERATOR: Not applicable. Respiratory: No shortness of breath. Cardiovascular: No chest pain. Endocrine: No polydipsia. Skin: No rash. Physical Examination: Vital Signs: When I saw the patient, blood pressure 130/94, pulse of 89, afebrile. Chest: Clear to auscultation. Heart: S1, S2. Regular. Abdomen: Soft, nontender. Extremities: No edema. Neurologic: Alert and oriented x3, nonfocal. Medications: Current medications the patient is on include: 1.IV fluid. 2.Atorvastatin. 3.Metoprolol. 4.Ambien. 5.Alprazolam. 6.Zofran. Laboratory Data: Sodium 138, potassium 3.8, bicarb 30, BUN 27, creatinine 1.6, calcium 8.3. WBC 9.4 , H and H 12.8/37.1, platelet 263. Urinalysis: Specific gravity of 1.020, wbc's 5 to 10, + 3 protein. Assessment And Plan: 1.Acute kidney injury secondary to prerenal, secondary to gastroenteritis and gastrointestinal loss, on the recovery phase. The patient started tolerating full diet. I am going to go ahead and discon tinue IV fluid, and we will follow up the patient. 2.Giving significant proteinuria, I am going to quantify it, and we will send for protein creatinine , and we will follow up. 3.Hypertension, controlled optimal. Continue current medication. 4.Proteinuria, mostly secondary to diabetes, but given the acute kidney injury and the significance of the proteinuria, I going to send for serology and adjust to rule it out with SPEP. 5.Diabetes as by primary. 6.Gastroenteritis, resolved. We will follow up with the primary. Case discussed with the patient, verbalized understanding. Discussed with staff, agreed on the plan. Thank you Dr. Fernandez for allowing us to participate in the care of your patient. DAVON Voice ID: [id number] Report ID: [id number]
[2018-01-24 05:07] LABS: Absolute Lymphocytes (CBC) 1.5 K/uL (0.7-4.9); Absolute Monocytes 0.5 K/uL (0.1-1.3); Absolute Neutrophil 5.1 K/uL (1.8-8.0); Basophils % 0.9 % (0-1.3); Eosinophils % 1.8 % (0-4.4); Hematocrit 41.4 % (39.6-49.0); Lymphocytes % 20.7 % (15.3-44.8); MCH 26.8 pg (27.0-35.0); MCV 80.4 fL (80-100); Monocytes % 6.8 % (3.3-12.3); RBC Red Blood Cell Count 5.15 M/uL (4.33-5.43)
[2018-01-24 05:25] LABS: Urine Protein/Creatinine Ratio 0.08 ratio (<0.15)
[2018-01-24 05:36] LABS: Albumin 3.7 g/dL (3.4-5.0); Bilirubin Total 0.4 mg/dL (0.2-1.0); Phosphorus 3.7 mg/dL (2.5-4.9); Potassium 3.6 mmol/L (3.5-5.1); Protein, Total 7.3 g/dL (6.4-8.2)
[2018-01-24] MEDS: METOPROLOL TAR 50 MG TAB PO SCH (09:00)
[2018-01-24] MEDS: ATORVASTATIN 40 MG TAB PO SCH (09:00)
--- NOTE | 2018-01-24 10:57 | P.DS ---
Admission Date: 01/22/18 Discharge Date: 01/24/18 Disposition: ROUTINE DISCHARGE Discharge Condition: FAIR Reason for Admission: [id number] Brief History of Present Illness: pt is 52 yrs of age AW nausea vomiting. Uncontrolled diabetes. Non complaince.No problems during stay OE well alert and oriented. Chest clear. CVS HS normal. Extrem. No edema. D/C home labs normal now. Renal failure OA Hospital Course: Pt did well Renal function ormal . BS elevated. D/C home on Glipizide and resume other homemmeds.F/u iht Primary care Doc Vital Signs/Physical Exam: Temp Pulse Resp BP Pulse Ox 97.3 F 83 18 143/89 H 98 01/24/18 04:00 01/24/18 04:00 01/24/18 04:00 01/24/18 04:00 01/24/18 04:00 Laboratory Data at Discharge: WBC 7.3 K/uL (4.3-10.9) D 01/24/18 04:32 Hgb 13.8 g/dL (13.6-17.9) 01/24/18 04:32 Hct 41.4 % (39.6-49.0) 01/24/18 04:32 Plt Count 276 K/uL (152-406) 01/24/18 04:32 PT 12.4 SECONDS (9.5-12.5) 01/22/18 14:30 INR 1.05 01/22/18 14:30 APTT 30.9 SECONDS (24.3-36.9) 01/22/18 14:30 Sodium 136 mmol/L (136-145) 01/24/18 04:32 Potassium 3.6 mmol/L (3.5-5.1) 01/24/18 04:32 BUN 19 mg/dL (7-18) H 01/24/18 04:32 Creatinine 1.10 mg/dL (0.55-1.3) 01/24/18 04:32 Glucose 262 mg/dL (74-106) H 01/24/18 04:32 Phosphorus 3.7 mg/dL (2.5-4.9) 01/24/18 04:32 Total Bilirubin 0.4 mg/dL (0.2-1.0) 01/24/18 04:32 AST 24 U/L (15-37) 01/24/18 04:32 ALT 65 U/L (12-78) 01/24/18 04:32 Alkaline Phosphatase 101 U/L (45-117) 01/24/18 04:32 Lipase 120 U/L (73-393) 01/22/18 14:30 Home Medications: Atorvastatin Calcium 40 mg PO DAILY 01/22/18 Metformin ER [Glucophage ER*] 1,000 mg PO BID 01/22/18 Metoprolol Tartrate [Lopressor] 50 mg PO BID 01/22/18 Zolpidem Tartrate [Ambien] 10 mg PO BEDTIME PRN 01/22/18 glipiZIDE [Glipizide] 2.5 mg PO BID 30 Days tablet 01/24/18 New Medications: glipiZIDE [Glipizide] 2.5 mg PO BID 30 Days tablet
[2018-01-24] MEDS: INSULIN -REGULAR HUMAN 50 UNIT/0.5 ML ML SQ SCH ×2 (11:49→11:51)
[2018-01-24] MEDS ORDERED: POTASSIUM CL SA 10 MEQ TAB PO ONE (11:58)
[2018-01-24 21:58] LABS: Rheumatoid Factor NEG (NEG)
--- NOTE | 2018-01-25 02:56 | PN ---
Date of Progress Note: 01/24/2018 Subjective: The patient doing well. No nausea. No vomiting. Admitted with acute kidney injury. Physical Examination: Vital Signs: Blood pressure 106/67, pulse of 79. Chest: Clear to auscultation. Heart: S1, S2. Regular. Abdomen: Soft, nontender. Extremities: No edema. Laboratory Data: H and H 13.8/41.4. Sodium 136, potassium 3.6, bicarb 28. BUN 19, creatinine 1.1. Calcium 9.2, phosphorus 3.7. Current Medications: IV fluid, insulin, atorvastatin, KCl, and Ambien. Assessment And Plan: 1.Acute kidney injury secondary to prerenal. Recovered, resolved. 2.Hypertension. Continue current medication. We will discontinue IV fluid. 3.Hypokalemia. We will supplement. DAVON Voice ID: [id number] Report ID: [id number]
[2018-01-27 03:17] LABS: HBsAG Nonreactive (Nonreactive)
[2018-01-27 12:57] LABS: Hepatitis C Virus RNA (PCR)log <1.18 log IU/mL
[2018-01-27 13:44] LABS: HIV 1/2 Antibody Diff Not indicated.; HIV AG/AB 4TH GEN Non-reactive (Non-reactive)
[2018-01-27 21:59] LABS: Albumin, (SPE) 4.1 g/dL (3.8-4.8); Alpha-1-Globulins 0.3 g/dL (0.2-0.3); Alpha-2-Globulins 0.8 g/dL (0.5-0.9); Gamma Globulins 0.7 g/dL (0.8-1.7); INTERPRETATION Consistent with
[2018-01-28 19:11] LABS: P-ANCA Anti-Myeloperoxidase Ab <1.0 AI (<1.0)
== END 2018-01-24 15:38 | disposition home or self-care (01) | DRG 682 ==
LOC: ER 13:05 → ERHOLD 16:22 → 2ND 17:59
PROVIDERS: ADMIT Family Medicine; ATTEND Internal Medicine Sleep Medicine
DX: N17.9 Acute kidney failure, unspecified (principal); E11.00 Type 2 diabetes mellitus with hyperosmolarity without nonketotic hyperglycemic-hyperosmolar coma (NKHHC); N30.00 Acute cystitis without hematuria; I10 Essential (primary) hypertension; E87.6 Hypokalemia; E11.65 Type 2 diabetes mellitus with hyperglycemia; I25.10 Atherosclerotic heart disease of native coronary artery without angina pectoris; E11.40 Type 2 diabetes mellitus with diabetic neuropathy, unspecified; K52.9 Noninfective gastroenteritis and colitis, unspecified; F41.1 Generalized anxiety disorder; R53.81 Other malaise; Z91.120 Patient's intentional underdosing of medication regimen due to financial hardship; I25.2 Old myocardial infarction; Z95.1 Presence of aortocoronary bypass graft; Z79.84 Long term (current) use of oral hypoglycemic drugs; Z79.82 Long term (current) use of aspirin
CPT/HCPCS: 36415; 70450; 80048; 80053; 80069; 80076; 81003; 81015; 82550; 82553; 82570; 82962; 83036; 83520; 83690; 83970; 84145; 84156; 84165; 84484; 85025; 85610; 85730; 86021; 86038; 86160; 86225; 86430; 86704; 86706; 87040; 87340; 87389; 87522; 93005; 94760; 96360; 99285; J7030

== ENCOUNTER 2018-01-27 07:18 | Emergency (ER) | payer SELFPAY ==
[2018-01-27] MEDS ORDERED: NA CHLORIDE 0.9% 500 ML ONE (08:06)
[2018-01-27 08:28] LABS: Absolute Monocytes 0.8 K/uL (0.1-1.3); Absolute Neutrophil 8.6 K/uL (1.8-8.0); Basophils % 0.8 % (0-1.3); Eosinophils % 1.7 % (0-4.4); Hematocrit 41.9 % (39.6-49.0); Lymphocytes % 17.3 % (15.3-44.8); MCH 26.6 pg (27.0-35.0); MCV 81.2 fL (80-100); MPV 10.3 fL (7.6-11.3); Monocytes % 6.6 % (3.3-12.3); RBC Red Blood Cell Count 5.16 M/uL (4.33-5.43)
[2018-01-27 08:32] LABS: ALT/SGPT 47 U/L (12-78); AST/SGOT 21 U/L (15-37); Alkaline Phosphatase 82 U/L (45-117); BUN Blood Urea Nitrogen 22 mg/dL (7-18); Bicarbonate 24 mmol/L (21-32); Bilirubin Direct 0.1 mg/dL (0-0.2); Bilirubin Total 0.4 mg/dL (0.2-1.0); CKMB Creatine Kinase MB 1.1 ng/mL (0.3-3.6); Creatine Phosphokinase 44 U/L (39-308); Glucose Level 154 mg/dL (74-106); Magnesium 1.6 mg/dL (1.8-2.4); NT PRO-BNP 176 pg/mL (<125); Potassium 3.8 mmol/L (3.5-5.1); Protein, Total 7.4 g/dL (6.4-8.2); Sodium Level 138 mmol/L (136-145); Troponin (Emerg Dept Use Only) < 0.02 ng/mL (0.0-0.045)
[2018-01-27 08:35] LABS: Protime INR 0.94
[2018-01-27] MEDS ORDERED: LISINOPRIL 5 MG TAB ONE (08:39)
[2018-01-27] MEDS ORDERED: clonazePAM 0.5 MG TAB ONE (08:40)
--- NOTE | 2018-01-27 08:53 | RAD REPORT ---
EXAM DESCRIPTION: RAD - Chest Single View - 01/27/2018 8:11 am CLINICAL HISTORY: PALPITATIONS Chest pain. COMPARISON: Chest Single View dated 10/22/2017; Chest Pa And Lat (2 Views) dated 09/05/2016; Chest Sin gle View dated 06/14/2016 FINDINGS: Portable technique limits examination quality. The lungs are grossly clear. Postsurgical changes of a CABG noted. No displaced fractures. IMPRESSION: No acute intrathoracic process suspected.
--- NOTE | 2018-01-27 09:15 | ER ---
Nurse's Notes [facility] Name: Abilio Ling Age: 52 yrs Sex: Male : 1965 Arrival Date: 01/27/2018 Time: 07:23 Bed 20 Private MD: None, None Diagnosis: Palpitations;Anxiety disorder, unspecified;Type 2 diabetes mellitus;Hypomagnesemia Presentation: 01/27 07:37 Presenting complaint: Patient states: " I was seen here on for the same thing, ph my sugar has been high and I just can't get it down. I am on some new medicines and I am just not feeling well." Pt appears anxious in triage, reports home BGL 198 this morning, states that he took his home medications, BGL in triage 133, also reports nausea. Transition of care: patient was not received from another setting of care. Onset of symptoms was January 27, 2018. Risk Assessment: Do you want to hurt yourself or someone else? Patient reports no desire to harm self or others. Initial Sepsis Screen: Does the patient meet any 2 criteria? No. Patient's initial sepsis screen is negative. Does the patient have a suspected source of infection? No. Patient's initial sepsis screen is negative. Care prior to arrival: None. 07:37 Method Of Arrival: Ambulatory ph 07:37 Acuity: KARLA 3 ph Historical: - Allergies: 07:41 No Known Allergies; ph - PMHx: 07:41 Anxiety; Diabetes - NIDDM; Hypertension; Myocardial infarction; ph - PSHx: 07:41 CABG; cardiac cath; ph - Immunization history:: Adult Immunizations not up to date. - Ebola Screening: : No symptoms or risks identified at this time. - Social history:: Smoking status: Patient/guardian denies using tobacco, never smoked, Patient/guardian denies using alcohol. Screenin:08 Abuse screen: Denies threats or abuse. Denies injuries from another. Nutritional jl7 screening: No deficits noted. Tuberculosis screening: No symptoms or risk factors identified. Fall Risk IV access (20 points). Total Bernstein Fall Scale indicates No Risk (0-24 pts). Assessment: 07:58 Reassessment: Patient appears in no apparent distress at this time. Patient is alert, sm4 oriented x 3, equal unlabored respirations, skin warm/dry/pink. General: Appears in no apparent distress. Behavior is calm, cooperative, quiet. Pain: Denies pain. Neuro: No deficits noted. Cardiovascular: No deficits noted. Respiratory: No deficits noted. GI: No deficits noted. : No deficits noted. EENT: No deficits noted. Derm: No deficits noted. Musculoskeletal: No deficits noted. 09:00 Reassessment: Patient appears in no apparent distress at this time. Patient and/or sm4 family updated on plan of care and expected duration. Pain level reassessed. Patient is alert, oriented x 3, equal unlabored respirations, skin warm/dry/pink. Patient denies pain at this time. Patient states feeling better. Patient states symptoms have improved. Vital Signs: 07:40 BP 149 / 94; Pulse 80; Resp 18; Temp 98.1(O); Pulse Ox 99% on R/A; Weight 74.84 kg; ph Height 5 ft. 7 in. (170.18 cm); 08:09 BP 123 / 89; Pulse 80; Resp 20; Pulse Ox 98% on R/A; sm4 09:14 BP 122 / 88; Pulse 79; Resp 20; Pulse Ox 98% on R/A; sm4 07:40 Body Mass Index 25.84 (74.84 kg, 170.18 cm) ph ED Course: 07:23 Patient arrived in ED. sb2 07:23 None, None is Private Physician. sb2 07:27 Eric Howard MD is Attending Physician. jose eduardo 07:40 Triage completed. ph 07:40 Inserted saline lock: 20 gauge in right forearm, using aseptic technique. Blood sm4 collected. 07:41 Arm band placed on. ph 07:56 Naseem Everett, SAMANTHA is Primary Nurse. sm4 08:08 X-ray completed. Portable x-ray completed in exam room. jr1 08:08 TSH Sent. sm4 08:08 Basic Metabolic Panel Sent. sm4 08:08 CBC with Diff Sent. sm4 08:08 Ckmb Sent. sm4 08:08 CPK Sent. sm4 08:08 LFT's Sent. sm4 08:08 Magnesium Sent. sm4 08:08 NT PRO-BNP Sent. sm4 08:08 PT-INR Sent. sm4 08:08 Ptt, Activated Sent. sm4 08:08 Troponin (emerg Dept Use Only) Sent. sm4 08:11 XRAY Chest (1 view) In Process Unspecified. EDMS 08:51 EKG done, by technical cable jointer. reviewed by Eric Howard MD. at1 09:08 Patient has correct armband on for positive identification. Placed in gown. Bed in low jl7 position. Call light in reach. Side rails up X 1. Pulse ox on. NIBP on. Warm blanket given. 09:14 Ashvin Eason MD is Referral Physician. [facility] 09:14 Ezio Goode MD is Referral Physician. [facility] 10:00 No provider procedures requiring assistance completed. IV discontinued, intact, No sm4 redness/swelling at site. Pressure dressing applied. Administered Medications: 08:07 Drug: NS 0.9% 500 ml Route: IV; Rate: bolus; Site: left forearm; sm4 08:40 Follow up: IV Status: Completed infusion; IV Intake: 500ml sm4 08:40 Drug: Lisinopril 5 mg Route: PO; sm4 09:16 Follow up: Response: No adverse reaction sm4 08:40 Drug: KLONopin 1 mg Route: PO; sm4 09:16 Follow up: Response: No adverse reaction sm4 09:22 Drug: Magnesium Sulfate 1 grams Route: IVPB; Infused Over: 1 hrs; Site: right forearm; sm4 09:57 Follow up: IV Status: Completed infusion; IV Intake: 100ml sm4 09:57 Follow up: IV Status: Completed infusion sm4 Point of Care Testing: Blood Glucose: 07:40 Blood Glucose: 133 mg/dL; ph Ranges: Intake: 08:40 IV: 500ml; Total: 500ml. sm4 09:57 IV: 100ml; Total: 600ml. sm4 Outcome: 09:14 Discharge ordered by . jose eduardo 10:00 Discharged to home ambulatory. sm4 10:00 Condition: good 10:00 Discharge instructions given to patient, Instructed on discharge instructions, follow up and referral plans. medication usage, Demonstrated understanding of instructions, follow-up care, medications, Prescriptions given X 3. 10:03 Patient left the ED. sm4 Signatures: Dispatcher [employer] EDMS Eric Howard MD MD cha Ringgold, Jennifer jr1 Laura Uriarte, dead mail checker EKG Tat1 Wendi Tobias RN RN Kar Grossman RN RN jl7 Marleen Garsia sb2 Naseem Everett, RN RN sm4
--- NOTE | 2018-01-27 09:15 | EDPHYS ---
Physician Documentation [facility] Name: Abilio Ling Age: 52 yrs Sex: Male : 1965 Arrival Date: 01/27/2018 Time: 07:23 Bed 20 Private MD: None, None ED Physician Eric Howard HPI: 01/27 08:05 This 52 yrs old Male presents to ER via Ambulatory with complaints of High jose eduardo Blood Sugar, Palpitations. 08:05 The patient or guardian reports hyperglycemia, palpitations. Onset: The jose eduardo symptoms/episode began/occurred 5 day(s) ago. Associated signs and symptoms: Pertinent positives: None. Current symptoms: In the emergency department the patient's symptoms are unchanged from the initial presentation. The patient has experienced similar episodes in the past, multiple times. Historical: - Allergies: 07:41 No Known Allergies; ph - PMHx: 07:41 Anxiety; Diabetes - NIDDM; Hypertension; Myocardial infarction; ph - PSHx: 07:41 CABG; cardiac cath; ph - Immunization history:: Adult Immunizations not up to date. - Ebola Screening: : No symptoms or risks identified at this time. - Social history:: Smoking status: Patient/guardian denies using tobacco, never smoked, Patient/guardian denies using alcohol. ROS: 08:06 Constitutional: Negative for fever, chills, and weight loss, Eyes: Negative for injury, jose eduardo pain, redness, and discharge, ENT: Negative for injury, pain, and discharge, Neck: Negative for injury, pain, and swelling, Respiratory: Negative for shortness of breath, cough, wheezing, and pleuritic chest pain, Abdomen/GI: Negative for abdominal pain, nausea, vomiting, diarrhea, and constipation, Back: Negative for injury and pain, : Negative for injury, bleeding, discharge, and swelling, MS/Extremity: Negative for injury and deformity, Skin: Negative for injury, rash, and discoloration, Neuro: Negative for headache, weakness, numbness, tingling, and seizure, Psych: Negative for depression, anxiety, suicide ideation, homicidal ideation, and hallucinations, Allergy/Immunology: Negative for hives, rash, and allergies, Endocrine: Negative for neck swelling, polydipsia, polyuria, polyphagia, and marked weight changes, Hematologic/Lymphatic: Negative for swollen nodes, abnormal bleeding, and unusual bruising. 08:06 Cardiovascular: Positive for palpitations. Exam: 08:06 Constitutional: This is a well developed, well nourished patient who is awake, alert, jose eduardo and in no acute distress. Head/Face: Normocephalic, atraumatic. Eyes: Pupils equal round and reactive to light, extra-ocular motions intact. Lids and lashes normal. Conjunctiva and sclera are non-icteric and not injected. Cornea within normal limits. Periorbital areas with no swelling, redness, or edema. ENT: Nares patent. No nasal discharge, no septal abnormalities noted. Tympanic membranes are normal and external auditory canals are clear. Oropharynx with no redness, swelling, or masses, exudates, or evidence of obstruction, uvula midline. Mucous membranes moist. Neck: Trachea midline, no thyromegaly or masses palpated, and no cervical lymphadenopathy. Supple, full range of motion without nuchal rigidity, or vertebral point tenderness. No Meningismus. Chest/axilla: Normal chest wall appearance and motion. Nontender with no deformity. No lesions are appreciated. Cardiovascular: Regular rate and rhythm with a normal S1 and S2. No gallops, murmurs, or rubs. Normal PMI, no JVD. No pulse deficits. Respiratory: Lungs have equal breath sounds bilaterally, clear to auscultation and percussion. No rales, rhonchi or wheezes noted. No increased work of breathing, no retractions or nasal flaring. Abdomen/GI: Soft, non-tender, with normal bowel sounds. No distension or tympany. No guarding or rebound. No evidence of tenderness throughout. Back: No spinal tenderness. No costovertebral tenderness. Full range of motion. Male : Normal genitalia with no discharge or lesions. Skin: Warm, dry with normal turgor. Normal color with no rashes, no lesions, and no evidence of cellulitis. MS/ Extremity: Pulses equal, no cyanosis. Neurovascular intact. Full, normal range of motion. Neuro: Awake and alert, GCS 15, oriented to person, place, time, and situation. Cranial nerves II-XII grossly intact. Motor strength 5/5 in all extremities. Sensory grossly intact. Cerebellar exam normal. Normal gait. Psych: Awake, alert, with orientation to person, place and time. Behavior, mood, and affect are within normal limits. 08:06 Musculoskeletal/extremity: Extremities: all appear grossly normal, with no appreciated pain with palpation, ROM: no acute changes, intact in all extremities, Circulation is intact in all extremities. Sensation intact. Compartment Syndrome exam of affected extremity: is normal. DVT Exam: No signs of deep vein thrombosis. no pain, no swelling, no tenderness, negative Homans' sign noted on exam, no appreciated bluish discoloration, no erythema, no increased warmth. Vital Signs: 07:40 BP 149 / 94; Pulse 80; Resp 18; Temp 98.1(O); Pulse Ox 99% on R/A; Weight 74.84 kg; ph Height 5 ft. 7 in. (170.18 cm); 08:09 BP 123 / 89; Pulse 80; Resp 20; Pulse Ox 98% on R/A; sm4 09:14 BP 122 / 88; Pulse 79; Resp 20; Pulse Ox 98% on R/A; sm4 07:40 Body Mass Index 25.84 (74.84 kg, 170.18 cm) ph MDM: 07:27 Patient medically screened. [facility] 08:06 Data reviewed: vital signs, nurses notes, lab test result(s), EKG, radiologic studies. [facility] 01/27 07:36 Order name: Basic Metabolic Panel; Complete Time: 09: [facility] 01/27 07:36 Order name: CBC with Diff; Complete Time: 09: [facility] 01/27 07:36 Order name: Ckmb; Complete Time: 09: [facility] 01/27 07:36 Order name: CPK; Complete Time: : [facility] 01/27 07:36 Order name: LFT's; Complete Time: : [facility] 01/27 07:36 Order name: Magnesium; Complete Time: 09: [facility] 01/27 07:36 Order name: NT PRO-BNP; Complete Time: : [facility] 01/27 07:36 Order name: PT-INR; Complete Time: : [facility] 01/27 07:36 Order name: Ptt, Activated; Complete Time: 09: [facility] 01/27 07:36 Order name: Troponin (emerg Dept Use Only); Complete Time: 09: [facility] 01/27 07:36 Order name: XRAY Chest (1 view); Complete Time: : [facility] 01/27 07:36 Order name: TSH; Complete Time: 09:13 [facility] 01/27 08:59 Order name: Urine Dipstick--Ancillary (enter results) 01/27 07:36 Order name: EKG; Complete Time: 07:37 [facility] 01/27 07:36 Order name: Cardiac monitoring; Complete Time: 07:57 [facility] 01/27 07:36 Order name: EKG - Nurse/Tech; Complete Time: 09:09 [facility] 01/27 07:36 Order name: IV Saline Lock; Complete Time: 07:57 [facility] 01/27 07:36 Order name: Labs collected and sent; Complete Time: 07:57 [facility] 01/27 07:36 Order name: O2 Per Protocol; Complete Time: 07:57 [facility] 01/27 07:36 Order name: O2 Sat Monitoring; Complete Time: 07:57 [facility] 01/27 07:36 Order name: Urine Dipstick-Ancillary (obtain specimen); Complete Time: 09:10 [facility] Administered Medications: 08:07 Drug: NS 0.9% 500 ml Route: IV; Rate: bolus; Site: left forearm; sm4 08:40 Follow up: IV Status: Completed infusion; IV Intake: 500ml sm4 08:40 Drug: Lisinopril 5 mg Route: PO; sm4 09:16 Follow up: Response: No adverse reaction sm4 08:40 Drug: KLONopin 1 mg Route: PO; sm4 09:16 Follow up: Response: No adverse reaction sm4 09:22 Drug: Magnesium Sulfate 1 grams Route: IVPB; Infused Over: 1 hrs; Site: right forearm; sm4 09:57 Follow up: IV Status: Completed infusion; IV Intake: 100ml sm4 09:57 Follow up: IV Status: Completed infusion sm4 Point of Care Testing: Blood Glucose: 07:40 Blood Glucose: 133 mg/dL; ph Ranges: Critical Glucose Levels:Adult <50 mg/dl or >400 mg/dl <40 mg/dl or >180 mg/dl Disposition: 01/27/18 09:14 Discharged to Home. Impression: Palpitations, Anxiety disorder, unspecified, Type 2 diabetes mellitus, Hypomagnesemia. - Condition is Stable. - Discharge Instructions: Type 2 Diabetes Mellitus, Diagnosis, Adult, Hypomagnesemia, Palpitations, Aspirin and Your Heart, Palpitations, [id number], Type 2 Diabetes Mellitus, Diagnosis, Adult, [id number]. - Prescriptions for Klonopin 0.5 mg Oral Tablet - take 1 tablet by ORAL route every 12 hours As needed; 40 tablet. Metformin 500 mg Oral Tablet - take 1 tablet by ORAL route every 12 hours for 14-21 days Then take 1 tablet with morning meals AND evening meals; 40 tablet. Lisinopril 5 mg Oral Tablet - take 1 tablet by ORAL route once daily; 20 tablet. - Medication Reconciliation Form, Thank You Letter, Antibiotic Education, Prescription Opioid Use, Work release form form. - Follow up: Private Physician; When: 2 - 3 days; Reason: Recheck today's complaints, Continuance of care, Re-evaluation by your physician. Follow up: Ashvin Eason; When: 2 - 3 days; Reason: Recheck today's complaints, Continuance of care, Re-evaluation by your physician. Follow up: Ezio Goode; When: 2 - 3 days; Reason: Recheck today's complaints, Re-evaluation by your physician. - Problem is new. - Symptoms have improved. Signatures: Dispatcher [employer] EDMS Eric Howard MD MD cha Hall, Patricia, RN RN Kar Grossman RN RN jl7 Naseem Everett RN RN sm4 Corrections: (The following items were deleted from the chart) 10:03 09:14 01/27/2018 09:14 Discharged to Home. Impression: Palpitations; Anxiety disorder, sm4 unspecified; Type 2 diabetes mellitus; Hypomagnesemia. Condition is Stable. Discharge Instructions: Type 2 Diabetes Mellitus, Diagnosis, Adult, Palpitations, Aspirin and Your Heart, Palpitations, [id number], Type 2 Diabetes Mellitus, Diagnosis, Adult, [id number]. Prescriptions for Metformin 500 mg Oral Tablet - take 1 tablet by ORAL route every 12 hours for 14-21 days Then take 1 tablet with morning meals AND evening meals; 40 tablet, Lisinopril 5 mg Oral Tablet - take 1 tablet by ORAL route once daily; 20 tablet, Klonopin 0.5 mg Oral Tablet - take 1 tablet by ORAL route every 12 hours As needed; 40 tablet. and Forms are Medication Reconciliation Form, Thank You Letter, Antibiotic Education, Prescription Opioid Use. Follow up: Private Physician; When: 2 - 3 days; Reason: Recheck today's complaints, Continuance of care, Re-evaluation by your physician. Follow up: Ashvin Eason; When: 2 - 3 days; Reason: Recheck today's complaints, Continuance of care, Re-evaluation by your physician. Follow up: Ezio Goode; When: 2 - 3 days; Reason: Recheck today's complaints, Re-evaluation by your physician. Problem is new. Symptoms have improved. jose eduardo
[2018-01-27] MEDS ORDERED: MAGNESIUM SULFATE 1 gm IVPB 1 GM/100 ML BAG IV ONE (09:23)
--- NOTE | 2018-01-27 12:19 | EKG ---
Test Date: 2018-01-27 Test Time: 08:51:30 Sheep Sticker: VIJAY MEASUREMENT RESULTS: Intervals: Rate: 68 MS: 148 QRSD: 142 QT: 404 QTc: 429 [place]: P: 27 MS: 148 QRS: -50 T: 30 INTERPRETIVE STATEMENTS: Normal sinus rhythm Left axis deviation Right bundle branch block Inferior infarct, age undetermined Abnormal ECG Compared to ECG 01/22/2018 13:23:11 Left-axis deviation now present Myocardial infarct finding still present Electronically Signed On 01-27-18 12:18:18 CDT by Ashvin Eason
[2018-01-27 14:21] LABS: Urine Blood NEGATIVE (NEG); Urine Glucose NEGATIVE (NEG); Urine Protein NEGATIVE (NEG)
== END 2018-01-27 10:03 | disposition home or self-care (01) ==
LOC: ER 07:18
DX: F41.9 Anxiety disorder, unspecified (principal); E83.42 Hypomagnesemia; E11.9 Type 2 diabetes mellitus without complications; I10 Essential (primary) hypertension; I25.2 Old myocardial infarction; Z95.1 Presence of aortocoronary bypass graft
CPT/HCPCS: 36415; 71045; 80048; 80076; 81003; 82550; 82553; 82962; 83735; 83880; 84443; 84484; 85025; 85610; 85730; 93005; 96361; 96365; 99284; J3475

== ENCOUNTER 2018-05-14 08:26 | Emergency (ER) | payer SELFPAY ==
[2018-05-14 09:48] LABS: BUN Blood Urea Nitrogen 29 mg/dL (7-18); Bicarbonate 27 mmol/L (21-32); Glucose Level 311 mg/dL (74-106); Potassium 4.1 mmol/L (3.5-5.1); Sodium Level 133 mmol/L (136-145)
[2018-05-14 09:55] LABS: Absolute Lymphocytes (CBC) 2.2 K/uL (0.7-4.9); Absolute Monocytes 1.2 K/uL (0.1-1.3); Absolute Neutrophil 14.4 K/uL (1.8-8.0); Basophils % 0.3 % (0-1.3); Eosinophils % 0.1 % (0-4.4); Hematocrit 40.9 % (39.6-49.0); Lymphocytes % 12.5 % (15.3-44.8); MPV 10.4 fL (7.6-11.3); Monocytes % 6.6 % (3.3-12.3); RBC Red Blood Cell Count 4.91 M/uL (4.33-5.43)
[2018-05-14] MEDS ORDERED: INSULIN -REGULAR HUMAN 50 UNIT/0.5 ML ML ONE (11:13)
--- NOTE | 2018-05-14 12:38 | ER ---
Nurse's Notes [facility] Name: Abilio Ling Age: 52 yrs Sex: Male : 1965 Arrival Date: 05/14/2018 Time: 08:27 Bed 6 Private MD: None, None Diagnosis: Hyperglycemia, unspecified;Bronchitis, not specified as acute or chronic Presentation: 05/14 08:42 Presenting complaint: Patient states: Persistent cough, has been seen and diagnosed sg with Bronchiolitis, was started on a z-pack and prednisone PO but since taking medications blood sugar has been really high, still have the cough as well. Transition of care: patient was not received from another setting of care. Onset of symptoms was May 14, 2018. Risk Assessment: Do you want to hurt yourself or someone else? Patient reports no desire to harm self or others. Initial Sepsis Screen: Does the patient meet any 2 criteria? No. Patient's initial sepsis screen is negative. Does the patient have a suspected source of infection? No. Patient's initial sepsis screen is negative. Care prior to arrival: None. 08:42 Method Of Arrival: Ambulatory sg 08:42 Acuity: KARLA 3 sg Historical: - Allergies: 08:44 No Known Allergies; sg - Home Meds: 08:44 atorvastatin 40 mg Oral tab 1 tab once daily [Active]; Lopressor 50 mg Oral tab once sg daily [Active]; metformin 1,000 mg Oral tab 1 tab 2 times per day [Active]; - PMHx: 08:44 Anxiety; Diabetes - NIDDM; Hypertension; Myocardial infarction; sg - PSHx: 08:44 CABG; cardiac cath; sg - Immunization history:: Adult Immunizations up to date. - Social history:: Smoking status: Patient/guardian denies using tobacco. - Ebola Screening: : Patient negative for fever greater than or equal to 101.5 degrees Fahrenheit, and additional compatible Ebola Virus Disease symptoms Patient denies exposure to infectious person Patient denies travel to an Ebola-affected area in the 21 days before illness onset No symptoms or risks identified at this time. Screenin:45 Abuse screen: Denies threats or abuse. Denies injuries from another. Nutritional sg screening: No deficits noted. Tuberculosis screening: No symptoms or risk factors identified. Never had TB. Fall Risk None identified. Assessment: 09:40 General: Appears in no apparent distress. comfortable, well groomed, well developed, sg well nourished, Behavior is calm, cooperative, appropriate for age. Pain: Denies pain. Neuro: Level of Consciousness is awake, alert, obeys commands, Oriented to person, place, time, situation, Liquid Chlorine Operator are equal bilaterally Moves all extremities. Full function Gait is steady, Speech is normal, Facial symmetry appears normal. Cardiovascular: Capillary refill is brisk in bilateral fingers toes Patient's skin is warm and dry. 10:30 Reassessment: Patient appears in no apparent distress at this time. No changes from tw2 previously documented assessment. Patient and/or family updated on plan of care and expected duration. Pain level reassessed. Patient is alert, oriented x 3, equal unlabored respirations, skin warm/dry/pink. 11:30 Reassessment: Patient appears in no apparent distress at this time. No changes from tw2 previously documented assessment. Patient and/or family updated on plan of care and expected duration. Pain level reassessed. Patient is alert, oriented x 3, equal unlabored respirations, skin warm/dry/pink. 12:52 Reassessment: Patient appears in no apparent distress at this time. No changes from tw2 previously documented assessment. Patient and/or family updated on plan of care and expected duration. Pain level reassessed. Patient is alert, oriented x 3, equal unlabored respirations, skin warm/dry/pink. Vital Signs: 08:41 BP 140 / 89; Pulse 100; Resp 18; Temp 98.2; Pulse Ox 98% on R/A; Pain 2/10; sg 09:25 BP 133 / 74; Pulse 96; Resp 17 S; Pulse Ox 96% on R/A; sg 10:30 BP 129 / 82; Pulse 83; Resp 17; Pulse Ox 99% on R/A; tw2 11:30 BP 115 / 75; Pulse 91; Resp 17; Pulse Ox 99% on R/A; tw2 12:52 BP 133 / 83; Pulse 97; Resp 17; Pulse Ox 99% on R/A; tw2 ED Course: 08:27 Patient arrived in ED. sb2 08:27 None, None is Private Physician. sb2 08:35 Bed in low position. Call light in reach. tw2 08:41 Niranjan Munoz, SAMANTHA is Primary Nurse. sg 08:43 Triage completed. sg 08:43 Arm band placed on. sg 08:58 Jad Pearson MD is Attending Physician. kdr 09:18 Initial lab(s) drawn, by me, sent to lab. Inserted saline lock: 22 gauge in right sg antecubital area, using aseptic technique. Blood collected. 12:55 No provider procedures requiring assistance completed. IV discontinued, intact, tw2 bleeding controlled, No redness/swelling at site. Pressure dressing applied. Administered Medications: 11:10 Drug: Insulin Regular Human 5 units {Co-Signature: tw2 (Nina Lares RN).} Route: IVP; sg Site: right antecubital; 12:55 Follow up: Response: No adverse reaction; Blood sugar is lowered tw2 Point of Care Testing: Blood Glucose: 09:01 Blood Glucose: 295 mg/dL; tw2 11:51 Blood Glucose: 233 mg/dL; tw2 09:01 provider notified. tw2 Ranges: Outcome: 12:38 Discharge ordered by . kdr 12:56 Discharged to home ambulatory. tw2 12:56 Condition: stable 12:56 Discharge instructions given to patient, Instructed on discharge instructions, follow up and referral plans. Demonstrated understanding of instructions, follow-up care. 12:56 Patient left the ED. tw2 Signatures: Niranjan Munoz RN RN Jad Pearson MD MD kdr Wise, Tara, RN RN tw2 Marleen Garsia 2 Nina Lares RN tw2 Corrections: (The following items were deleted from the chart) 09:25 08:42 Acuity: KARLA 4 [facility]
--- NOTE | 2018-05-14 12:38 | EDPHYS ---
Physician Documentation [facility] Name: Abilio Ling Age: 52 yrs Sex: Male : 1965 Arrival Date: 05/14/2018 Time: 08:27 Bed 6 Private MD: None, None ED Physician Jad Pearson HPI: 05/14 10:28 This 52 yrs old Male presents to ER via Ambulatory with complaints of High kdr Blood Sugar. 10:28 This 52 yrs old Male presents to ER via Ambulatory with complaints of High kdr Blood Sugar. 10:57 The patient has been out of his meds and not taking medication regularly since kdr Hurricshaheen Jayy. He had had a CABG shortly after the Hurricaine and the last few days, his sugar has been as high as 500. A normal BS would be about 180. He states that when his BS gets upwards of 400-500 or as low as 120, he begins to feel poorly.. Onset: The symptoms/episode began/occurred gradually, today. Severity of symptoms: At their worst the symptoms were mild in the emergency department the symptoms are unchanged. The patient has experienced similar episodes in the past, chronically. The patient has not recently seen a physician. The patient has also been out of his psych meds and is requesting psych information//contacts. Historical: - Allergies: 08:44 No Known Allergies; sg - Home Meds: 08:44 atorvastatin 40 mg Oral tab 1 tab once daily [Active]; Lopressor 50 mg Oral tab once sg daily [Active]; metformin 1,000 mg Oral tab 1 tab 2 times per day [Active]; - PMHx: 08:44 Anxiety; Diabetes - NIDDM; Hypertension; Myocardial infarction; sg - PSHx: 08:44 CABG; cardiac cath; sg - Immunization history:: Adult Immunizations up to date. - Social history:: Smoking status: Patient/guardian denies using tobacco. - Ebola Screening: : Patient negative for fever greater than or equal to 101.5 degrees Fahrenheit, and additional compatible Ebola Virus Disease symptoms Patient denies exposure to infectious person Patient denies travel to an Ebola-affected area in the 21 days before illness onset No symptoms or risks identified at this time. ROS: 10:57 Constitutional: Negative for fever, chills, and weight loss, Eyes: Negative for injury, kdr pain, redness, and discharge, ENT: Negative for injury, pain, and discharge, Neck: Negative for injury, pain, and swelling, Cardiovascular: Negative for chest pain, palpitations, and edema, Respiratory: Negative for shortness of breath, cough, wheezing, and pleuritic chest pain, Abdomen/GI: Negative for abdominal pain, nausea, vomiting, diarrhea, and constipation, Back: Negative for injury and pain, : Negative for injury, bleeding, discharge, and swelling, MS/Extremity: Negative for injury and deformity, Skin: Negative for injury, rash, and discoloration, Neuro: Negative for headache, weakness, numbness, tingling, and seizure activity. Allergy/Immunology: Negative for hives, rash, and allergies, Hematologic/Lymphatic: Negative for swollen nodes, abnormal bleeding, and unusual bruising. 10:57 Psych: Positive for anxiety, Negative for drug dependence, alcohol dependence, auditory hallucinations, visual hallucinations, homicidal ideation, insomnia, suicide gesture, suicidal ideation, acute changes. 10:57 Endocrine: Positive for Exam: 10:57 Constitutional: This is a well developed, well nourished patient who is awake, alert, kdr and in no acute distress. Head/Face: Normocephalic, atraumatic. Eyes: Pupils equal round and reactive to light, extra-ocular motions intact. Lids and lashes normal. Conjunctiva and sclera are non-icteric and not injected. Cornea within normal limits. Periorbital areas with no swelling, redness, or edema. Neck: Trachea midline, no thyromegaly or masses palpated, and no cervical lymphadenopathy. Supple, full range of motion without nuchal rigidity, or vertebral point tenderness. No Meningismus. Chest/axilla: Normal chest wall appearance and motion. Nontender with no deformity. No lesions are appreciated. Cardiovascular: Regular rate and rhythm with a normal S1 and S2. No gallops, murmurs, or rubs. Normal PMI, no JVD. No pulse deficits. Respiratory: Lungs have equal breath sounds bilaterally, clear to auscultation and percussion. No rales, rhonchi or wheezes noted. No increased work of breathing, no retractions or nasal flaring. Abdomen/GI: Soft, non-tender, with normal bowel sounds. No distension or tympany. No guarding or rebound. No evidence of tenderness throughout. Back: No spinal tenderness. No costovertebral tenderness. Full range of motion. Skin: Warm, dry with normal turgor. Normal color with no rashes, no lesions, and no evidence of cellulitis. MS/ Extremity: Pulses equal, no cyanosis. Neurovascular intact. Full, normal range of motion. Neuro: Awake and alert, GCS 15, oriented to person, place, time, and situation. Cranial nerves II-XII grossly intact. Motor strength 5/5 in all extremities. Sensory grossly intact. Cerebellar exam normal. Normal gait. Psych: Awake, alert, with orientation to person, place and time. Behavior, mood, and affect are within normal limits. Vital Signs: 08:41 BP 140 / 89; Pulse 100; Resp 18; Temp 98.2; Pulse Ox 98% on R/A; Pain 2/10; sg 09:25 BP 133 / 74; Pulse 96; Resp 17 S; Pulse Ox 96% on R/A; sg 10:30 BP 129 / 82; Pulse 83; Resp 17; Pulse Ox 99% on R/A; tw2 11:30 BP 115 / 75; Pulse 91; Resp 17; Pulse Ox 99% on R/A; tw2 12:52 BP 133 / 83; Pulse 97; Resp 17; Pulse Ox 99% on R/A; tw2 MDM: 10:57 Data reviewed: vital signs, nurses notes, lab test result(s). Counseling: I had a kdr detailed discussion with the patient and/or guardian regarding: the historical points, exam findings, and any diagnostic results supporting the discharge/admit diagnosis, lab results, radiology results, the need for outpatient follow up. 12:38 Patient medically screened. kdr 05/14 09:02 Order name: Glucose, Ancillary Testing; Complete Time: 10:27 EDKY 05/14 09:04 Order name: CBC with Diff; Complete Time: 10:27 kdr 05/14 09:04 Order name: Chem 7; Complete Time: 10:27 kdr 05/14 09:04 Order name: Ketone, Serum; Complete Time: 10: kdr 05/14 10:46 Order name: Urine Dipstick--Ancillary (enter results) hb 05/14 09:04 Order name: Urine Dipstick-Ancillary (obtain specimen); Complete Time: 10:46 kdr 05/14 12:13 Order name: FSBS; Complete Time: 12:46 kdr Administered Medications: 11:10 Drug: Insulin Regular Human 5 units {Co-Signature: tw2 (Nina Lares RN).} Route: IVP; Site: right antecubital; 12:55 Follow up: Response: No adverse reaction; Blood sugar is lowered tw2 Point of Care Testing: Blood Glucose: 09:01 Blood Glucose: 295 mg/dL; tw2 11:51 Blood Glucose: 233 mg/dL; tw2 09:01 provider notified. tw2 Ranges: Critical Glucose Levels:Adult <50 mg/dl or >400 mg/dl <40 mg/dl or >180 mg/dl Disposition: 05/14/18 12:38 Discharged to Home. Impression: Hyperglycemia, unspecified, Bronchitis, not specified as acute or chronic. - Condition is Stable. - Discharge Instructions: Acute Bronchitis, Adult, Blood Glucose Monitoring, Adult, Hyperglycemia, [id number]. - Medication Reconciliation Form, Thank You Letter, Work release form form. - Follow up: Private Physician; When: 2 - 3 days; Reason: If symptoms return, Further diagnostic work-up, Recheck today's complaints, Continuance of care, Re-evaluation by your physician. - Problem is an acute exacerbation. - Symptoms have improved. - Notes: Change your Metformin dose to 750 mg by mouth twice a day while on the steroids Signatures: Dispatcher [employer] EDMS Niranjan Munoz RN RN Jad Pearson MD MD kdr Wise, Tara, RN RN tw2 Nina Lares RN tw2 Corrections: (The following items were deleted from the chart) 12:56 12:38 05/14/2018 12:38 Discharged to Home. Impression: Hyperglycemia, unspecified; tw2 Bronchitis, not specified as acute or chronic. Condition is Stable. Forms are Medication Reconciliation Form, Thank You Letter, Antibiotic Education, Prescription Opioid Use. Follow up: Private Physician; When: 2 - 3 days; Reason: If symptoms return, Further diagnostic work-up, Recheck today's complaints, Continuance of care, Re-evaluation by your physician. Problem is an acute exacerbation. Symptoms have improved. kdr
[2018-05-14 12:55] LABS: Urine Blood NEGATIVE (NEG); Urine Glucose 2+ (NEG); Urine Protein NEGATIVE (NEG); Urine Specific Gravity 1.025 (1.005-1.030); Urine pH 5.5 (5.0-7.0)
== END 2018-05-14 12:56 | disposition home or self-care (01) ==
LOC: ER 08:26
DX: J40 Bronchitis, not specified as acute or chronic (principal); I10 Essential (primary) hypertension; F41.9 Anxiety disorder, unspecified; Z95.1 Presence of aortocoronary bypass graft
CPT/HCPCS: 36415; 80048; 81003; 82010; 82962; 85025; 96374; 99284

== ENCOUNTER 2018-09-11 11:38 | Emergency (ER) | payer SELFPAY ==
[2018-09-11] MEDS ORDERED: ASPIRIN 81 MG CHEWABLE TABLET ONE (13:07)
[2018-09-11] MEDS ORDERED: LORAZEPAM 1 MG TABLET ONE (13:08)
[2018-09-11 13:17] LABS: Absolute Lymphocytes (CBC) 1.9 K/uL (0.7-4.9); Absolute Monocytes 0.5 K/uL (0.1-1.3); Absolute Neutrophil 6.8 K/uL (1.8-8.0); Basophils % 0.9 % (0-1.3); Eosinophils % 2.7 % (0-4.4); Lymphocytes % 19.9 % (15.3-44.8); MPV 9.9 fL (7.6-11.3); Monocytes % 5.6 % (3.3-12.3); Protime INR 0.89; RBC Red Blood Cell Count 4.89 M/uL (4.33-5.43)
[2018-09-11] MEDS ORDERED: ACETAMINOPHEN 325 MG TABLET ONE (13:21)
[2018-09-11 13:40] LABS: ALT/SGPT 66 U/L (12-78); AST/SGOT 30 U/L (15-37); Albumin 3.7 g/dL (3.4-5.0); Alkaline Phosphatase 92 U/L (45-117); BUN Blood Urea Nitrogen 14 mg/dL (7-18); Bicarbonate 30 mmol/L (21-32); Bilirubin Direct < 0.1 mg/dL (0-0.2); Bilirubin Total 0.4 mg/dL (0.2-1.0); Glucose Level 363 mg/dL (74-106); Magnesium 1.6 mg/dL (1.8-2.4); NT PRO-BNP 66 pg/mL (<125); Potassium 3.9 mmol/L (3.5-5.1); Sodium Level 137 mmol/L (136-145); Troponin (Emerg Dept Use Only) < 0.02 ng/mL (0.0-0.045)
--- NOTE | 2018-09-11 14:04 | RAD REPORT ---
EXAM DESCRIPTION: Anil Single View09/11/2018 1:12 pm CLINICAL HISTORY: Chest pain COMPARISON: January 2018 FINDINGS: The lungs appear clear of acute infiltrate. The heart is mildly enlarged. Postsurgical changes involve the chest. IMPRESSION: No acute abnormalities displayed
[2018-09-11] MEDS ORDERED: NA CHLORIDE 0.9% 500 ML ONE (14:18)
[2018-09-11] MEDS ORDERED: MAGNESIUM OXIDE 400 MG TAB ONE (14:18)
--- NOTE | 2018-09-11 14:42 | RAD REPORT ---
EXAM DESCRIPTION: CT - Chest For Pe Angio - 09/11/2018 2:16 pm CLINICAL HISTORY: Chest pain, shortness of breath COMPARISON: Chest exam same date TECHNIQUE: Dynamically enhanced 3 mm thick images of the chest were obtained during administration o f approximately 150mL Isovue 370 IV contrast. Coronal and oblique MIP reconstruction images were gene rated and reviewed. Exam utilizes a protocol to evaluate the pulmonary arterial tree. All CT scans are performed using dose optimization technique as appropriate and may include automated exposure control or mA/KV adjustment according to patient size. FINDINGS: No pulmonary emboli are identified. Exam has significant mid and lower lung macedo motion degradation. This limits far peripheral branch assessment. The aorta as imaged shows no acute or suspicious finding. No pericardial thickening or effusion. CABG surgical changes are noted. No infiltrate or mass in the lung parenchyma. No pleural effusion or pleural thickening. No mediastinal or hilar suspicious masses. No chest wall masses or abnormal axillary lymphadenopathy. Prominent azygos vein noted. Limited imaging into the uppermost abdomen shows evidence for hepatomegaly not fully assessed. Fatty infiltration of the liver is also evident. IMPRESSION: No pulmonary emboli identified. Far peripheral branches in the lower lung macedo have li mited assessment due to motion. Likelihood of pulmonary embolism is felt to be low. No acute lung parenchymal finding. Hepatomegaly only partially imaged on this study. Fatty infiltration is also evident. No other significant or suspicious findings.
[2018-09-11] MEDS ORDERED: PROMETHAZINE 25 MG/ML VIAL ONE (14:46)
--- NOTE | 2018-09-11 16:37 | EDPHYS ---
Physician Documentation [facility] Name: Abilio Ling Age: 53 yrs Sex: Male : 1965 Arrival Date: 09/11/2018 Time: 11:41 Bed 19 Private MD: None, None ED Physician Jad Pearson HPI: 09/11 12:57 This 53 yrs old Male presents to ER via Ambulatory with complaints of snw Confusion, Dizziness, Headache. 12:57 Onset: The symptoms/episode began/occurred gradually, 2 day(s) ago, and became snw persistent. Associated signs and symptoms: Pertinent positives: chest pain, shortness of breath. Modifying factors: The patient symptoms are alleviated by nothing, the patient symptoms are aggravated by lifting. It is unknown whether or not the patient has had similar symptoms in the past. recent dental appointments - given antibiotics and is scheduled for extraction 09/20. Historical: - Allergies: 11:45 No Known Allergies; hj - PMHx: 11:45 Anxiety; Diabetes - NIDDM; Hypertension; Myocardial infarction; hj - PSHx: 11:45 CABG; cardiac cath; hj - Immunization history:: Adult Immunizations unknown. - Social history:: Smoking status: unknown. - Ebola Screening: : Patient negative for fever greater than or equal to 101.5 degrees Fahrenheit, and additional compatible Ebola Virus Disease symptoms Patient denies exposure to infectious person Patient denies travel to an Ebola-affected area in the 21 days before illness onset No symptoms or risks identified at this time. ROS: 12:55 Constitutional: Negative for fever, chills, and weight loss, Eyes: Negative for injury, snw pain, redness, and discharge, ENT: Negative for injury, pain, and discharge, Neck: Negative for injury, pain, and swelling. 12:55 Abdomen/GI: Negative for abdominal pain, nausea, vomiting, diarrhea, and constipation, Back: Negative for injury and pain, : Negative for injury, bleeding, discharge, and swelling, MS/Extremity: Negative for injury and deformity, Skin: Negative for injury, rash, and discoloration, Neuro: Negative for headache, weakness, numbness, tingling, and seizure. 12:55 Cardiovascular: Positive for chest pain. 12:55 Respiratory: Positive for shortness of breath, at rest. 12:55 Psych: Positive for anxiety. Exam: 12:54 Constitutional: This is a well developed, well nourished patient who is awake, alert, snw and in no acute distress. Head/Face: Normocephalic, atraumatic. Eyes: Pupils equal round and reactive to light, extra-ocular motions intact. Lids and lashes normal. Conjunctiva and sclera are non-icteric and not injected. Cornea within normal limits. Periorbital areas with no swelling, redness, or edema. ENT: Nares patent. No nasal discharge, no septal abnormalities noted. Tympanic membranes are normal and external auditory canals are clear. Oropharynx with no redness, swelling, or masses, exudates, or evidence of obstruction, uvula midline. Mucous membranes moist. Neck: Trachea midline, no thyromegaly or masses palpated, and no cervical lymphadenopathy. Supple, full range of motion without nuchal rigidity, or vertebral point tenderness. No Meningismus. Chest/axilla: Normal chest wall appearance and motion. Nontender with no deformity. No lesions are appreciated. 12:54 Abdomen/GI: Soft, non-tender, with normal bowel sounds. No distension or tympany. No guarding or rebound. No evidence of tenderness throughout. Back: No spinal tenderness. No costovertebral tenderness. Full range of motion. Skin: Warm, dry with normal turgor. Normal color with no rashes, no lesions, and no evidence of cellulitis. MS/ Extremity: Pulses equal, no cyanosis. Neurovascular intact. Full, normal range of motion. Neuro: Awake and alert, GCS 15, oriented to person, place, time, and situation. Cranial nerves II-XII grossly intact. Motor strength 5/5 in all extremities. Sensory grossly intact. Cerebellar exam normal. Normal gait. 12:54 Cardiovascular: Rate: tachycardic, Rhythm: regular, Pulses: no pulse deficits are appreciated, Heart sounds: normal, JVD: is not appreciated. 12:54 Respiratory: the patient does not display signs of respiratory distress, Respirations: normal, Breath sounds: are clear throughout. 12:54 Psych: Behavior/mood is cooperative, anxious, Affect is calm, Oriented to person, place, time. 13:20 ECG was reviewed by the Attending Physician. snw 15:21 ECG was reviewed by the Attending Physician. repeat EKG in ED with no acute changes snw with repeat trop pending Vital Signs: 11:45 BP 116 / 81; Pulse 111; Resp 18; Temp 98.1(O); Pulse Ox 98% on R/A; Weight 83.91 kg; hj Height 5 ft. 7 in. (170.18 cm); Pain 6/10; 13:00 BP 134 / 90; Pulse 90; Resp 18; Pulse Ox 99% on R/A; Pain 8/10; em 14:40 BP 139 / 97; Pulse 87; Resp 18; Pulse Ox 99% on R/A; Pain 3/10; em 11:45 Body Mass Index 28.97 (83.91 kg, 170.18 cm) hj MDM: 12:46 Patient medically screened. snw 16:37 Data reviewed: vital signs, nurses notes. Data interpreted: Pulse oximetry: on room air snw is 99 %. Interpretation: normal. Counseling: I had a detailed discussion with the patient and/or guardian regarding: the historical points, exam findings, and any diagnostic results supporting the discharge/admit diagnosis, the presence of at least one elevated blood pressure reading (>120/80) during this emergency department visit, lab results, the need for outpatient follow up, to return to the emergency department if symptoms worsen or persist or if there are any questions or concerns that arise at home. Response to treatment: the patient's symptoms have markedly improved after treatment. Special discussion: Based on the patient's history, exam, and Dx evaluation, there is no indication for emergent intervention or inpatient Tx. It is understood by the patient/guardian that if the Sx's persist or worsen they need to return immediately for re-evaluation. I have referred the patient to see his PCP for further evaluation of high blood pressure. Based on the history and exam findings, there is no indication for further emergent testing or inpatient evaluation. I discussed with the patient/guardian the need to see the chart picker for further evaluation of the symptoms. I discussed with the patient/guardian the need to see the primary care provider for further evaluation of the symptoms. 09/11 12:44 Order name: Basic Metabolic Panel; Complete Time: 13:54 snw 09/11 12:44 Order name: CBC with Diff; Complete Time: 13:20 snw 09/11 12:44 Order name: LFT's; Complete Time: 13:54 snw 09/11 12:44 Order name: Magnesium; Complete Time: 13:54 snw 09/11 12:44 Order name: NT PRO-BNP; Complete Time: 13:54 snw 09/11 12:44 Order name: PT-INR; Complete Time: 13:28 snw 09/11 12:44 Order name: Troponin (emerg Dept Use Only); Complete Time: 13:54 snw 09/11 12:44 Order name: XRAY Chest (1 view); Complete Time: 14:08 snw 09/11 12:44 Order name: CT Chest For PE Angio; Complete Time: 14:49 snw 09/11 12:44 Order name: Blood Culture Adult (2) snw 09/11 15:14 Order name: Troponin (emerg Dept Use Only); Complete Time: 16:36 snw 09/11 16:32 Order name: Glucose, Ancillary Testing EDMS 09/11 16:32 Order name: Glucose, Ancillary Testing; Complete Time: 16:36 EDMS 09/11 12:34 Order name: FSBS; Complete Time: 12:38 snw 09/11 12:44 Order name: EKG; Complete Time: 12:45 snw 09/11 12:44 Order name: Cardiac monitoring; Complete Time: 13:36 snw 09/11 12:44 Order name: EKG - Nurse/Tech; Complete Time: 13:36 snw 09/11 12:44 Order name: IV Saline Lock; Complete Time: 13:36 snw 09/11 12:44 Order name: Labs collected and sent; Complete Time: 13:36 snw 09/11 12:44 Order name: O2 Per Protocol; Complete Time: 13:36 snw 09/11 12:44 Order name: O2 Sat Monitoring; Complete Time: 13:36 snw 09/11 15:14 Order name: EKG; Complete Time: 15:15 snw 09/11 15:56 Order name: FSBS; Complete Time: 16:51 snw 09/11 15:56 Order name: Diet Ada 2000 Bruce; Complete Time: 15:57 snw Administered Medications: 12:58 Drug: Aspirin Chewable Tablet 324 mg Route: PO; em 14:03 Follow up: Response: No adverse reaction em 12:58 Drug: Ativan 1 mg Route: PO; em 14:41 Follow up: Response: No adverse reaction; Marked relief of symptoms em 13:08 Drug: Tylenol 650 mg Route: PO; em 14:41 Follow up: Response: No adverse reaction; Pain is decreased em 14:41 Drug: Magnesium 400 mg Route: PO; em 15:57 Follow up: Response: No adverse reaction em 14:41 Drug: NS 0.9% 500 ml Route: IV; Rate: bolus; Site: right antecubital; em 15:57 Follow up: IV Status: Completed infusion; IV Intake: 500ml em 14:41 Drug: Phenergan 12.5 mg Route: IVP; Site: right antecubital; iw 15:58 Follow up: Response: No adverse reaction; Nausea is decreased em Point of Care Testing: Blood Glucose: 11:47 Blood Glucose: 323 mg/dL; hj Ranges: Critical Glucose Levels:Adult <50 mg/dl or >400 mg/dl <40 mg/dl or >180 mg/dl Disposition: 17:58 Co-signature as Attending Physician, Jad Pearson MD I agree with the assessment and kdr plan of care. Disposition: 09/11/18 16:36 Discharged to Home. Impression: Hyperglycemia, unspecified, Chest pain, unspecified, Shortness of breath. - Condition is Stable. - Discharge Instructions: Nonspecific Chest Pain, Diabetes and Sick Day Management, Potassium Content of Foods, Hyperglycemia, Hypertension, Blood Glucose Monitoring, Adult, Stress and Stress Management, Aspirin and Your Heart. - Prescriptions for Glipizide 5 mg Oral Tablet - take 1 tablet by ORAL route once daily before a meal; 20 tablet. - Work release form, Medication Reconciliation Form, Thank You Letter, Antibiotic Education, Prescription Opioid Use form. - Follow up: Private Physician; When: 1 week; Reason: Recheck today's complaints, Continuance of care, Re-evaluation by your physician. Follow up: Emergency Department; When: As needed; Reason: Worsening of condition. Signatures: Dispatcher [employer] Jad Rosario MD MD kdr Therrien, Shelly, BALCON[employer] WORKER-C BALCONY WORKER-Vernon Monzon, COTTON STRIPPER COTTON STRIPPER em Helen Hess, RN SAMANTHA iw Dexter Michaud RN RN Corrections: (The following items were deleted from the chart) 15:13 12:54 Cardiovascular: Rate: tachycardic, Rhythm: regular, Pulses: no pulse deficits are snw appreciated, Heart sounds: normal, JVD: is not appreciated, snw 17:24 16:36 09/11/2018 16:36 Discharged to Home. Impression: Hyperglycemia, unspecified; iw Chest pain, unspecified; Shortness of breath. Condition is Stable. Discharge Instructions: Nonspecific Chest Pain, Diabetes and Sick Day Management, Potassium Content of Foods, Hyperglycemia, Hypertension, Blood Glucose Monitoring, Adult, Stress and Stress Management, Aspirin and Your Heart. Prescriptions for Glipizide 5 mg Oral Tablet - take 1 tablet by ORAL route once daily before a meal; 20 tablet. and Forms are Work release form, Medication Reconciliation Form, Thank You Letter, Antibiotic Education, Prescription Opioid Use. Follow up: Private Physician; When: 1 week; Reason: Recheck today's complaints, Continuance of care, Re-evaluation by your physician. Follow up: Emergency Department; When: As needed; Reason: Worsening of condition. snw
--- NOTE | 2018-09-11 16:37 | ER ---
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 Transition of care: patient was not received from another setting of care. Onset of symptoms was September 11, 2018. Risk Assessment: Do you want to hurt yourself or someone else? Patient reports no desire to harm self or others. Initial Sepsis Screen: Does the patient meet any 2 criteria? No. Patient's initial sepsis screen is negative. Does the patient have a suspected source of infection? No. Patient's initial sepsis screen is negative. Care prior to arrival: None. 11:43 Method Of Arrival: Ambulatory 11:43 Acuity: KARLA 3 hj Triage Assessment: 17:23 Headache History: The patient has had previous headaches. General: Appears in no iw apparent distress. General: Behavior is calm, cooperative. Pain: Also complains of. Pain: Denies pain. Historical: - Allergies: 11:45 No Known Allergies; hj - PMHx: 11:45 Anxiety; Diabetes - NIDDM; Hypertension; Myocardial infarction; hj - PSHx: 11:45 CABG; cardiac cath; hj - Immunization history:: Adult Immunizations unknown. - Social history:: Smoking status: unknown. - Ebola Screening: : Patient negative for fever greater than or equal to 101.5 degrees Fahrenheit, and additional compatible Ebola Virus Disease symptoms Patient denies exposure to infectious person Patient denies travel to an Ebola-affected area in the 21 days before illness onset No symptoms or risks identified at this time. Screenin:30 Abuse screen: Denies threats or abuse. Nutritional screening: No deficits noted. em Tuberculosis screening: No symptoms or risk factors identified. Fall Risk None identified. Assessment: 12:30 General: Appears in no apparent distress. comfortable, Behavior is cooperative, em anxious, Denies fever. Pain: Complains of pain in head Pain currently is 10 out of 10 on a pain scale. Pain began 1 day ago. Neuro: Level of Consciousness is awake, alert, obeys commands, Oriented to person, place, time, situation, Moves all extremities. Speech is normal, Facial symmetry appears normal, Reports headache paresthesias in right leg and left leg photophobia Denies. Cardiovascular: Denies chest pain, Heart tones S1 S2 present Capillary refill < 3 seconds Patient's skin is warm and dry. Rhythm is sinus rhythm. Respiratory: Airway is patent Respiratory effort is even, unlabored, Respiratory pattern is regular, symmetrical, Breath sounds are clear bilaterally. GI: Reports nausea, Patient currently denies vomiting. Derm: Skin is intact, is healthy with good turgor, Skin is pink, warm \T\ dry. Musculoskeletal: Capillary refill < 3 seconds, Range of motion: intact in all extremities. 12:45 Reassessment: I agree with previous assessment. 14:40 Reassessment: Patient appears in no apparent distress at this time. Patient and/or em family updated on plan of care and expected duration. Pain level reassessed. Patient is alert, oriented x 3, equal unlabored respirations, skin warm/dry/pink. rates headache 3/10 Patient states feeling better. 17:22 Reassessment: Patient appears in no apparent distress at this time. Patient and/or iw family updated on plan of care and expected duration. Pain level reassessed. Patient is alert, oriented x 3, equal unlabored respirations, skin warm/dry/pink. Patient states feeling better. Patient states symptoms have improved. Vital Signs: 11:45 BP 116 / 81; Pulse 111; Resp 18; Temp 98.1(O); Pulse Ox 98% on R/A; Weight 83.91 kg; Height 5 ft. 7 in. (170.18 cm); Pain 6/10; 13:00 BP 134 / 90; Pulse 90; Resp 18; Pulse Ox 99% on R/A; Pain 8/10; em 14:40 BP 139 / 97; Pulse 87; Resp 18; Pulse Ox 99% on R/A; Pain 3/10; em 11:45 Body Mass Index 28.97 (83.91 kg, 170.18 cm) ED Course: 11:41 Patient arrived in ED. mr 11:41 None, None is Private Physician. mr 11:44 Triage completed. hj 11:45 Arm band placed on right wrist. hj 12:23 Vernon Szymanski LVN is Primary Nurse. em 12:26 [facility]. snw 12:26 Jad Pearson MD is Attending Physician. snw 12:30 Patient has correct armband on for positive identification. Bed in low position. Call em light in reach. Side rails up X2. school bus monitor on. Pulse ox on. NIBP on. 13:00 EKG done, by technology teacher. reviewed by Ursula BAUTISTA. at1 13:11 X-ray completed. Portable x-ray completed in exam room. Patient tolerated procedure sw well. 13:13 XRAY Chest (1 view) In Process Unspecified. EDMS 13:15 Radiology exam delayed due to lab results not completed at this time. (BUN/Creatinine). nj 14:14 CT completed. Patient tolerated procedure well. Patient moved to CT. Patient moved back wi from CT. 14:17 CT Chest For PE Angio In Process Unspecified. EDMS 15:26 EKG done, by technology teacher. reviewed by Ursula BAUTISTA. sm3 17:22 No provider procedures requiring assistance completed. IV discontinued, intact, iw bleeding controlled, No redness/swelling at site. Pressure dressing applied. Administered Medications: 12:58 Drug: Aspirin Chewable Tablet 324 mg Route: PO; em 14:03 Follow up: Response: No adverse reaction em 12:58 Drug: Ativan 1 mg Route: PO; em 14:41 Follow up: Response: No adverse reaction; Marked relief of symptoms em 13:08 Drug: Tylenol 650 mg Route: PO; em 14:41 Follow up: Response: No adverse reaction; Pain is decreased em 14:41 Drug: Magnesium 400 mg Route: PO; em 15:57 Follow up: Response: No adverse reaction em 14:41 Drug: NS 0.9% 500 ml Route: IV; Rate: bolus; Site: right antecubital; em 15:57 Follow up: IV Status: Completed infusion; IV Intake: 500ml em 14:41 Drug: Phenergan 12.5 mg Route: IVP; Site: right antecubital; iw 15:58 Follow up: Response: No adverse reaction; Nausea is decreased em Point of Care Testing: Blood Glucose: 11:47 Blood Glucose: 323 mg/dL; vincent Ranges: Intake: 15:57 IV: 500ml; Total: 500ml. em Outcome: 16:36 Discharge ordered by . vidal 17:23 Discharged to home ambulatory. iw 17:23 Condition: good 17:23 Discharge instructions given to patient, Instructed on discharge instructions, follow up and referral plans. medication usage, Demonstrated understanding of instructions, follow-up care, medications, Prescriptions given X 1. 17:24 Patient left the ED. iw Signatures: Dispatcher [employer] EDMS Ursula Ryan, OFFICE ASST-C OFFICE ASST-Csnw TuckerMica mr Szymanski, Vernon, LEAD RUBY ON RAILS DEVELOPER LEAD RUBY ON RAILS DEVELOPER Helen Davila, RN RN Laura Don, md do resident urgent care EKG Tat1 Amy Starkey Henry, RN RN hj Baxter, Heather, RN RN hb Jordan, Nathan nj Montes, Shakira 3
--- NOTE | 2018-09-12 10:16 | EKG ---
Test Date: 2018-09-11 Test Time: 15:20:03 Command And Control: OFE MEASUREMENT RESULTS: Intervals: Rate: 78 NJ: 150 QRSD: 130 QT: 386 QTc: 440 [place]: P: 34 [place]: 150 QRS: -72 T: 22 INTERPRETIVE STATEMENTS: Normal sinus rhythm Left axis deviation Right bundle branch block Inferior infarct, age undetermined Abnormal ECG Compared to ECG 09/11/2018 12:55:09 Sinus arrhythmia no longer present Myocardial infarct finding still present Electronically Signed On 09-12-18 10:16:16 CDT by Ashvin Eason
--- NOTE | 2018-09-12 10:17 | EKG ---
Test Date: 2018-09-11 Test Time: 12:55:09 Audograph Operator: VIJAY MEASUREMENT RESULTS: Intervals: Rate: 87 NC: 148 QRSD: 130 QT: 372 QTc: 447 [place]: P: 38 NC: 148 QRS: -79 T: 26 INTERPRETIVE STATEMENTS: Normal sinus rhythm with sinus arrhythmia Left axis deviation Right bundle branch block Inferior infarct, age undetermined Abnormal ECG Compared to ECG 01/27/2018 08:51:30 No significant changes Electronically Signed On 09-12-18 10:16:21 CDT by Ashvin Eason
== END 2018-09-11 17:24 | disposition home or self-care (01) ==
LOC: ER 11:38
DX: E11.65 Type 2 diabetes mellitus with hyperglycemia (principal); R06.02 Shortness of breath; Z95.1 Presence of aortocoronary bypass graft
CPT/HCPCS: 36415; 71045; 71275; 80048; 80076; 82962; 83735; 83880; 84484; 85025; 85610; 87040; 93005; 96361; 96374; 99285; J2550; Q9967

== ENCOUNTER 2019-07-06 03:00 | Emergency (ER) | payer SELFPAY ==
--- OUTSIDE RECORDS SUMMARY | 2019-07-06 03:06 | XMS REPORT ---
:1965 [facility] [address] [place] [address] Dr. Balbuena [address] [place] [id number] Care Team Providers Name Role Phone TRUE STEPHENS V Unavailable Unavailable MAYCO MITCHELL Unavailable Unavailable KELLY BAL Unavailable Unavailable ANABELLA, DR MARC Unavailable Unavailable VELEZ, DR QUINONES Unavailable Unavailable Problems This patient has no known problems. Allergies, Adverse Reactions, Alerts This patient has no known allergies or adverse reactions. Medications This patient has no known medications. Encounters Start End Encounter Admission Attending Care Care Encounter Date/Time Date/Time Type Type Clinicians Facility Department ID 2017-10-18 2017-10-18 Emergency [facility] [id number] 10:19:00 11:35:00 2017-10-15 2017-10-17 Outpatient E DEZ VELEZ [facility] [id number] 02:43:00 19:20:00 JONI 2017-10-10 2017-10-10 Outpatient [facility] [id number] 00:00:00 00:00:00 2017-09-18 2017-09-18 Outpatient [facility] [id number] 00:00:00 00:00:00 2017-08-15 2017-08-15 Outpatient [facility] [id number] 09:08:43 09:08:43 2017-08-14 2017-08-14 Outpatient [facility] [id number] 00:00:00 00:00:00 2017-06-27 2017-06-27 Emergency [facility] [id number] 15:22:07 15:22:07 2017-06-27 2017-06-27 Emergency [facility] [id number] 15:12:48 15:12:48 2017-06-27 2017-06-[address] [facility] [id number] 13:26:00 13:26:00 Results Test Description Test Time Test Comments Text Results Atomic Results Result Comments CT 2018-03-06 [facility] [address] [facility] 12:25:00 [place], [place] [address] Patient Name: SHIRLEY HANEY MR #: [id number] W : 1965 Age/Sex: 52/M Req #: [id number] Adm Physician: Ordered by: DANIELLE MARK LIBRARIAN HELPER Report #: [id number] Location: ER Room/Bed: ____ Procedure: [id number] CT/CT CHEST W Exam Date: 03/06/18 Exam Time: 1135 REPORT STATUS: Signed EXAM: CT Chest WITH contrast 03/06/2018 10:13 AM INDICATION: COMPARISON: Chest radiograph 03/06/2018 TECHNIQUE: Spiral CT images of the chest were performed from the lung apices through the level of the adrenal glands after the IV contrast administration. Thin section reconstructions were obtained with special concentration on the pulmonary arteries. IV CONTRAST: 100 mL of Isovue-370 during first injection and additional 63 cc and second injection. ORAL CONTRAST: None COMPLICATIONS: Study has to be repeated due to technical issues. RADIATION DOSE: Total DLP: 497.2 mGy*cm Estimated effective dose: (DLP x 0.015 x size factor) mSv CTDIvol has been reviewed. It is below the limits set by the Radiation Protocol Committee (RPC). FINDINGS: LINES/ TUBES: None. PULMONARY ARTERIES: No filling defects are identified in the main, right or left pulmonary arteries to their segmental and subsegmental levels, to suggest pulmonary embolism. The main pulmonary artery is normal in size. LUNGS AND AIRWAYS: The lungs are unremarkable. Airways are normal. PLEURA: The pleural spaces are clear. HEART AND MEDIASTINUM: The thyroid gland is normal. No mediastinal, hilar or axillary lymphadenopathy. The right ventricle is mildly prominent but the left ventricle appeared normal in size. There is no pericardial effusion. Diffuse coronary artery calcification, status post CABG. 1.7 x 1.0 cm soft tissue density in the anterior mediastinum on series 2, image 32 likely postoperative in scarring or evolving hematoma. The thoracic aorta and pulmonary arteries are unremarkable. UPPER ABDOMEN: Unremarkable. 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 SOFT TISSUES: Unremarkable. IMPRESSION: No pulmonary embolism. Lungs are clear. Signed by: Dr. Radha Kenny M.D. on 03/06/2018 2: 13 PM Dictated By: RADHA KENNY MD 1413 Transcribed By: HATTIE on 03/06/18 1413 COPY TO: DANIELLE MARK NP CHEST 2018-03-[address], 11:59:00 [place] [address] Patient Name: SHIRLEY HANEY MR # : [id number] VIEWS : 1965 Age/Sex: 52/M Req #: [id number] Adm Physician: Ordered by: DANIELLE MARK NP Report #: [id number] Location: ER Room/Bed: ____ Procedure: [id number] DX/CHEST 2 VIEWS Exam Date: 03/06/18 Exam Time: 0856 REPORT STATUS: Signed EXAMINATION: CHEST 2 VIEWS INDICATION: COMPARISON: None FINDINGS: PA and lateral views TUBES and LINES: None. LUNGS: Lungs are well inflated. Lungs are clear. There is no evidence of pneumonia or pulmonary edema. PLEURA: No pleural effusion or pneumothorax. HEART AND MEDIASTINUM: The cardiac silhouette is mildly enlarged. BONES AND SOFT TISSUES: Intact median sternotomy wires. Soft tissues are unremarkable. UPPER ABDOMEN: No free air under the diaphragm. IMPRESSION: Mildly enlarged cardiac silhouette without pulmonary decompensation. Signed by: Dr. Radha Kenny M.D. on 03/06/2018 12:03 PM Dictated By: RADHA KENNY MD 02 Transcribed By: HATTIE on 03/06/18 120 COPY TO: DANIELLE MARK LIBRARIAN HELPER CHEST 2018-01-[address], SINGLE 11:44:00 [place], [place] [address] Patient Name: SHIRLEY HANEY MR #: [id number] (DELVIS : 1965 Age/Sex: 52/M Req #: [id number] Adm BLE) Physician: Ordered by: MAYCO MITCHELL MD Report #: [id number] Location: ER Room/Bed: ____ Procedure: [id number] DX/CHEST SINGLE (PORTABLE ) Exam Date: 01/05/18 Exam Time: 1000 REPORT STATUS: Signed PROCEDURE: A single AP view of the chest. COMPARISON: None. INDICATIONS: LOW BLOOD PRESSURE FINDINGS: Lines/tubes: None. Lungs: Limited by shallow inspiration. Mild central vascular congestion. Pleura: There is no pleural effusion or pneumothorax. Heart and mediastinum: Enlarged cardiac silhouette. Median sternotomy wires and mediastinal surgical clips. Bones: No acute bony abnormality. IMPRESSION: Enlarged cardiac silhouette and mild central vascular congestion. No definite focal consolidation. Dictated by: Rajeev Che M.D. on 01/05/2018 at 11:44 Electronically approved by: Rajeev Che M.D. on 2017 at 11:44 Dictated By: RAJEEV CHE MD 1144 Transcribed By: BETTIE on 01/05/18 1144 COPY TO: MAYCO MITCHELL MD BLOOD CULTURE 2017-11-04 18:00:00 Test Item Value Reference Range Comments CULTURE (BEAKER) (test prvi=5432) No growth in 5 days BLOOD [id number] 18:00:00 Test Item Value Reference Range Comments CULTURE (BEAKER) (test jtyi=4565) No growth in 5 days POCT-GLUCOSE [id number] 13:28:00 Test Item Value Reference Range Comments POC-GLUCOSE METER (BEAKER) 130 mg/dL 70-110 TESTED AT [address] (test lbxx=2495) [facility] [address] POCT-GLUCOSE [id number] 08:46:00 Test Item Value Reference Range Comments POC-GLUCOSE METER (BEAKER) 327 mg/dL 70-110 Notified SAMANTHA BOOTHE/TESTED AT [facility] (test odmu=5633) [facility] [address] CBC W/PLT COUNT & AUTO [id number] 05:22:00 Test Item Value Reference Range Comments WHITE BLOOD CELL COUNT (BEAKER) (test dnza=065) 11.2 K/ L 3.5-10.5 RED BLOOD CELL COUNT (BEAKER) (test zdwh=459) 3.45 M/ L 4.63-6.08 HEMOGLOBIN (BEAKER) (test bafl=312) 9.7 GM/DL 13.7-17.5 HEMATOCRIT (BEAKER) (test uhhu=192) 29.8 % 40.1-51.0 MEAN CORPUSCULAR VOLUME (BEAKER) (test hhfe=523) 86.4 fL 79.0-92.2 MEAN CORPUSCULAR HEMOGLOBIN (BEAKER) (test 28.1 pg 25.7-32.2 lqzl=538) MEAN CORPUSCULAR HEMOGLOBIN CONC (BEAKER) (test 32.6 GM/DL 32.3-36.5 etkt=719) RED CELL DISTRIBUTION WIDTH (BEAKER) (test 14.0 % 11.6-14.4 dvgq=949) PLATELET COUNT (BEAKER) (test umfu=548) 371 K/CU MM 150-450 MEAN PLATELET VOLUME (BEAKER) (test styl=821) 10.7 fL 9.4-12.4 NUCLEATED RED BLOOD CELLS (BEAKER) (test 0 /100 WBC 0-0 uqbs=125) NEUTROPHILS RELATIVE PERCENT (BEAKER) (test 73 % bvre=844) LYMPHOCYTES RELATIVE PERCENT (BEAKER) (test 13 % hemf=094) MONOCYTES RELATIVE PERCENT (BEAKER) (test 8 % twcx=121) EOSINOPHILS RELATIVE PERCENT (BEAKER) (test 4 % bhxb=231) BASOPHILS RELATIVE PERCENT (BEAKER) (test 0 % xoqz=354) NEUTROPHILS ABSOLUTE COUNT (BEAKER) (test 8.11 K/ L 1.78-5.38 lwbc=407) LYMPHOCYTES ABSOLUTE COUNT (BEAKER) (test 1.44 K/ L 1.32-3.57 rndu=941) MONOCYTES ABSOLUTE COUNT (BEAKER) (test 0.90 K/ L 0.30-0.82 sxyn=914) EOSINOPHILS ABSOLUTE COUNT (BEAKER) (test 0.46 K/ L 0.04-0.54 bylv=221) BASOPHILS ABSOLUTE COUNT (BEAKER) (test 0.04 K/ L 0.01-0.08 nvzj=345) IMMATURE GRANULOCYTES-RELATIVE PERCENT (BEAKER) 2 % 0-1 (test bymn=6899) [id number] 05:05:00 Test Item Value Reference Range Comments PHOSPHORUS (BEAKER) (test gmlj=885) 3.4 mg/dL 2.3-4.7 [id number] 05:05:00 Test Item Value Reference Range Comments MAGNESIUM (BEAKER) (test efcv=050) 2.1 mg/dL 1.6-2.6 BASIC METABOLIC [id number] 05:05:00 Test Item Value Reference Range Comments SODIUM (BEAKER) (test 135 meq/L 136-145 hepk=467) POTASSIUM (BEAKER) (test 4.1 meq/L 3.5-5.1 qtvb=473) CHLORIDE (BEAKER) (test 97 meq/L 98-107 ywvf=566) CO2 (BEAKER) (test 29 meq/L 22-29 rxbz=982) BLOOD UREA NITROGEN 19 mg/dL 7-21 (BEAKER) (test vita=286) CREATININE (BEAKER) (test 1.06 mg/dL 0.57-1.25 ntob=967) GLUCOSE RANDOM (BEAKER) 236 mg/dL 70-105 (test iwhi=102) CALCIUM (BEAKER) (test 9.5 mg/dL 8.4-10.2 pjkr=447) EGFR (BEAKER) (test 73 mL/min/1.73 sq m ESTIMATED GFR IS NOT cwpy=7254) ACCURATE CREATININE CLEARANCE IN PREDICTING GLOMERULAR FILTRATION RATE. ESTIMATED GFR IS NOT APPLICABLE FOR DIALYSIS PATIENTS. POCT-GLUCOSE [id number] 20:15:00 Test Item Value Reference Range Comments POC-GLUCOSE METER (BEAKER) 117 mg/dL 70-110 TESTED AT [address] (test bmsy=5886) [place] [address] POCT-GLUCOSE [id number] 17:08:00 Test Item Value Reference Range Comments POC-GLUCOSE METER (BEAKER) 262 mg/dL 70-110 TESTED AT [address] (test nvnd=6679) [place] [address] POCT-GLUCOSE [id number] 12:35:00 Test Item Value Reference Range Comments POC-GLUCOSE METER (BEAKER) 132 mg/dL 70-110 TESTED AT [address] (test fhvc=2193) [place] [address] POCT-GLUCOSE [id number] 07:56:00 Test Item Value Reference Range Comments POC-GLUCOSE METER (BEAKER) 268 mg/dL 70-110 TESTED AT [address] (test yedi=8616) [place] [address] [id number] 05:53:00 Test Item Value Reference Range Comments PHOSPHORUS (BEAKER) (test zgwt=111) 2.9 mg/dL 2.3-4.7 [id number] 05:53:00 Test Item Value Reference Range Comments MAGNESIUM (BEAKER) (test ylpz=939) 1.9 mg/dL 1.6-2.6 BASIC METABOLIC [id number] 05:53:00 Test Item Value Reference Range Comments SODIUM (BEAKER) (test 135 meq/L 136-145 zqbd=367) POTASSIUM (BEAKER) (test 4.1 meq/L 3.5-5.1 fliu=191) CHLORIDE (BEAKER) (test 96 meq/L 98-107 luka=414) CO2 (BEAKER) (test 30 meq/L 22-29 mton=678) BLOOD UREA NITROGEN 15 mg/dL 7-21 (BEAKER) (test wkql=610) CREATININE (BEAKER) (test 0.88 mg/dL 0.57-1.25 edeq=726) GLUCOSE RANDOM (BEAKER) 148 mg/dL 70-105 (test brep=926) CALCIUM (BEAKER) (test 9.4 mg/dL 8.4-10.2 twsg=294) EGFR (BEAKER) (test 90 mL/min/1.73 sq m ESTIMATED GFR IS NOT ghkt=9093) ACCURATE CREATININE CLEARANCE IN PREDICTING GLOMERULAR FILTRATION RATE. ESTIMATED GFR IS NOT APPLICABLE FOR DIALYSIS PATIENTS. CBC W/PLT COUNT & AUTO [id number] 05:26:00 Test Item Value Reference Range Comments WHITE BLOOD CELL COUNT (BEAKER) (test zwpw=910) 12.2 K/ L 3.5-10.5 RED BLOOD CELL COUNT (BEAKER) (test iczc=631) 3.59 M/ L 4.63-6.08 HEMOGLOBIN (BEAKER) (test dhxp=884) 10.0 GM/DL 13.7-17.5 HEMATOCRIT (BEAKER) (test mpzg=744) 31.0 % 40.1-51.0 MEAN CORPUSCULAR VOLUME (BEAKER) (test ioyk=349) 86.4 fL 79.0-92.2 MEAN CORPUSCULAR HEMOGLOBIN (BEAKER) (test 27.9 pg 25.7-32.2 subn=809) MEAN CORPUSCULAR HEMOGLOBIN CONC (BEAKER) (test 32.3 GM/DL 32.3-36.5 wlqt=499) RED CELL DISTRIBUTION WIDTH (BEAKER) (test 14.2 % 11.6-14.4 dhbk=401) PLATELET COUNT (BEAKER) (test nckp=098) 311 K/CU MM 150-450 MEAN PLATELET VOLUME (BEAKER) (test pgla=301) 11.0 fL 9.4-12.4 NUCLEATED RED BLOOD CELLS (BEAKER) (test 0 /100 WBC 0-0 owuc=082) NEUTROPHILS RELATIVE PERCENT (BEAKER) (test 77 % iwog=437) LYMPHOCYTES RELATIVE PERCENT (BEAKER) (test 10 % rlhf=383) MONOCYTES RELATIVE PERCENT (BEAKER) (test 8 % msjl=048) EOSINOPHILS RELATIVE PERCENT (BEAKER) (test 3 % bhju=750) BASOPHILS RELATIVE PERCENT (BEAKER) (test 0 % snpw=292) NEUTROPHILS ABSOLUTE COUNT (BEAKER) (test 9.33 K/ L 1.78-5.38 zyom=736) LYMPHOCYTES ABSOLUTE COUNT (BEAKER) (test 1.17 K/ L 1.32-3.57 xmft=563) MONOCYTES ABSOLUTE COUNT (BEAKER) (test 1.02 K/ L 0.30-0.82 vlal=731) EOSINOPHILS ABSOLUTE COUNT (BEAKER) (test 0.40 K/ L 0.04-0.54 jurj=323) BASOPHILS ABSOLUTE COUNT (BEAKER) (test 0.05 K/ L 0.01-0.08 sfbm=799) IMMATURE GRANULOCYTES-RELATIVE PERCENT (BEAKER) 2 % 0-1 (test tojl=1065) POCT-GLUCOSE [id number] 21:31:00 Test Item Value Reference Range Comments POC-GLUCOSE METER (BEAKER) 329 mg/dL 70-110 Will Repeat Test/TESTED AT (test adqo=6336) [place] [address] POCT-GLUCOSE [id number] 17:19:00 Test Item Value Reference Range Comments POC-GLUCOSE METER (BEAKER) 174 mg/dL 70-110 TESTED AT [address] (test ioct=9386) [place] [address] POCT-GLUCOSE [id number] 12:16:00 Test Item Value Reference Range Comments POC-GLUCOSE METER (BEAKER) 188 mg/dL 70-110 TESTED AT [address] (test urox=0223) [place] [address] POCT-GLUCOSE [id number] 07:17:00 Test Item Value Reference Range Comments POC-GLUCOSE METER (BEAKER) 145 mg/dL 70-110 TESTED AT [address] (test xhef=6814) [place] [address] [id number] 05:07:00 Test Item Value Reference Range Comments PHOSPHORUS (BEAKER) (test dxfe=372) 2.4 mg/dL 2.3-4.7 [id number] 05:07:00 Test Item Value Reference Range Comments MAGNESIUM (BEAKER) (test sbpy=527) 1.8 mg/dL 1.6-2.6 BASIC METABOLIC [id number] 05:07:00 Test Item Value Reference Range Comments SODIUM (BEAKER) (test 135 meq/L 136-145 paov=599) POTASSIUM (BEAKER) (test 3.5 meq/L 3.5-5.1 dapl=886) CHLORIDE (BEAKER) (test 98 meq/L 98-107 vwgo=777) CO2 (BEAKER) (test 30 meq/L 22-29 oboq=819) BLOOD UREA NITROGEN 14 mg/dL 7-21 (BEAKER) (test huas=769) CREATININE (BEAKER) (test 0.87 mg/dL 0.57-1.25 mgwh=475) GLUCOSE RANDOM (BEAKER) 141 mg/dL 70-105 (test wzqq=680) CALCIUM (BEAKER) (test 8.4 mg/dL 8.4-10.2 ngzz=843) EGFR (BEAKER) (test 91 mL/min/1.73 sq m ESTIMATED GFR IS NOT zkvk=1184) ACCURATE CREATININE CLEARANCE IN PREDICTING GLOMERULAR FILTRATION RATE. ESTIMATED GFR IS NOT APPLICABLE FOR DIALYSIS PATIENTS. HEPATIC FUNCTION [id number] 05:07:00 Test Item Value Reference Range Comments TOTAL PROTEIN (BEAKER) (test zcto=401) 6.0 gm/dL 6.0-8.3 ALBUMIN (BEAKER) (test udml=4930) 3.6 g/dL 3.5-5.0 BILIRUBIN TOTAL (BEAKER) (test xvrl=221) 0.9 mg/dL 0.2-1.2 BILIRUBIN DIRECT (BEAKER) (test ypiv=148) 0.5 mg/dL 0.1-0.5 ALKALINE PHOSPHATASE (BEAKER) (test yrpb=158) 114 U/L 40-150 AST (SGOT) (BEAKER) (test gwhj=945) 127 U/L 5-34 ALT (SGPT) (BEAKER) (test aksf=061) 449 U/L 6-55 HEMOGLOBIN AND [id number] 04:49:00 Test Item Value Reference Range Comments HEMOGLOBIN (BEAKER) (test aify=116) 9.4 GM/DL 13.7-17.5 HEMATOCRIT (BEAKER) (test mtgh=158) 28.5 % 40.1-51.0 POCT-GLUCOSE [id number] 21:23:00 Test Item Value Reference Range Comments POC-GLUCOSE METER (BEAKER) 214 mg/dL 70-110 TESTED AT [facility] [address] [place] [address] (test ldgw=5812) [facility] [address] POCT-GLUCOSE [id number] 19:21:00 Test Item Value Reference Range Comments POC-GLUCOSE METER (BEAKER) 318 mg/dL 70-110 Notified SAMANTHA BOOTHE/TESTED AT [facility] (test hhcp=5280) [address] [place] [address] RAD, ABDOMEN/KUB, 1 VIEW [id number] 16:06:00Reason for exam:->abdominal painFINAL REPORT History: Abdominal pain COMPARISON: None DISCUSSION: Two images,single view of the abdomen were submitted for interpretation. There is no small bowel dilatation. There is a small-moderate amount of stool predominantly in the right colon. No lytic or blastic abnormalities are seen. Of note, the examination is not sensitive for the evaluation of free air. Some wiresand needle-like densities are seen over the left upper quadrant of the abdomen. Signed: Samuel Perdue Verified Date/ Time: 11/01/2017 16:06:10 Reading Location: [address] Transitional Reading Room POCT-GLUCOSE [id number] 13:45:00 Test Item Value Reference Range Comments POC-GLUCOSE METER (BEAKER) 152 mg/dL 70-110 TESTED AT [address] (test bprm=7856) [facility] [address] VANCOMYCIN LEVEL, [id number] 12:22:00 Test Item Value Reference Range Comments VANCOMYCIN TROUGH (BEAKER) (test sghq=612) 10.3 ug/mL 10.0-20.0 [id number] 06:24:00 Test Item Value Reference Range Comments PHOSPHORUS (BEAKER) (test yath=800) 1.4 mg/dL 2.3-4.7 [id number] 05:26:00 Test Item Value Reference Range Comments MAGNESIUM (BEAKER) (test kihy=910) 2.1 mg/dL 1.6-2.6 HEPATIC FUNCTION [id number] 05:26:00 Test Item Value Reference Range Comments TOTAL PROTEIN (BEAKER) (test flsn=987) 6.3 gm/dL 6.0-8.3 ALBUMIN (BEAKER) (test zgqb=1907) 3.8 g/dL 3.5-5.0 BILIRUBIN TOTAL (BEAKER) (test lvdq=379) 0.9 mg/dL 0.2-1.2 BILIRUBIN DIRECT (BEAKER) (test bmth=001) 0.5 mg/dL 0.1-0.5 ALKALINE PHOSPHATASE (BEAKER) (test flkb=587) 113 U/L 40-150 AST (SGOT) (BEAKER) (test thzy=093) 153 U/L 5-34 ALT (SGPT) (BEAKER) (test jwzv=633) 522 U/L 6-55 [id number] 05:26:00 Test Item Value Reference Range Comments GLUCOSE RANDOM (BEAKER) (test rkdo=102) 154 mg/dL 70-105 BASIC METABOLIC [id number] 05:26:00 Test Item Value Reference Range Comments SODIUM (BEAKER) (test 136 meq/L 136-145 mita=781) POTASSIUM (BEAKER) (test 3.9 meq/L 3.5-5.1 elbu=028) CHLORIDE (BEAKER) (test 100 meq/L 98-107 qika=848) CO2 (BEAKER) (test 28 meq/L 22-29 izme=544) BLOOD UREA NITROGEN 16 mg/dL 7-21 (BEAKER) (test yjey=760) CREATININE (BEAKER) (test 0.83 mg/dL 0.57-1.25 izzr=369) GLUCOSE RANDOM (BEAKER) 154 mg/dL 70-105 (test ozwu=686) CALCIUM (BEAKER) (test 8.5 mg/dL 8.4-10.2 pgch=991) EGFR (BEAKER) (test 97 mL/min/1.73 sq m ESTIMATED GFR IS NOT tbfm=4902) ACCURATE CREATININE CLEARANCE IN PREDICTING GLOMERULAR FILTRATION RATE. ESTIMATED GFR IS NOT APPLICABLE FOR DIALYSIS PATIENTS. LACTIC ACID, VENOUS, WHOLE [id number] 05:02:00 Test Item Value Reference Range Comments LACTATE BLOOD VENOUS (2) (BEAKER) (test 1.4 mmol/L 0.5-2.2 glcz=8365) Effective 09/27/2015: Units/Reference Range ChangeNew: 0.5-2.2 mmol/L Previous: 5 -20 mg/dLHEMOGLOBIN AND [id number] 05:01:00 Test Item Value Reference Range Comments HEMOGLOBIN (BEAKER) (test gzrb=964) 9.7 GM/DL 13.7-17.5 HEMATOCRIT (BEAKER) (test ggaj=309) 29.5 % 40.1-51.0 POCT-GLUCOSE [id number] 21:16:00 Test Item Value Reference Range Comments POC-GLUCOSE METER (BEAKER) 250 mg/dL 70-110 TESTED AT [address] (test xyfu=4636) [place] [address] POCT-GLUCOSE [id number] 18:12:00 Test Item Value Reference Range Comments POC-GLUCOSE METER (BEAKER) 156 mg/dL 70-110 TESTED AT [address] (test scxn=3979) [place] [address] POCT-GLUCOSE [id number] 18:12:00 Test Item Value Reference Range Comments POC-GLUCOSE METER (BEAKER) 150 mg/dL 70-110 TESTED AT [address] (test occv=9459) [place] [address] POCT-GLUCOSE [id number] 17:53:00 Test Item Value Reference Range Comments POC-GLUCOSE METER (BEAKER) 180 mg/dL 70-110 TESTED AT [address] (test wzjv=4902) [place] [address] URINE [id number] 15:58:00 Test Item Value Reference Range Comments CULTURE (BEAKER) (test bvfj=3752) No growth POCT-GLUCOSE [id number] 11:50:00 Test Item Value Reference Range Comments POC-GLUCOSE METER (BEAKER) 187 mg/dL 70-110 TESTED AT [address] (test kngj=6612) [place] [address] [id number] 10:12:00 Test Item Value Reference Range Comments LIPASE (BEAKER) (test vclm=360) 5 U/L 8-78 [id number] 10:12:00 Test Item Value Reference Range Comments AMYLASE (BEAKER) (test qmct=327) 35 U/L 25-125 POCT-GLUCOSE [id number] 08:06:00 Test Item Value Reference Range Comments POC-GLUCOSE METER (BEAKER) 105 mg/dL 70-110 TESTED AT [address] (test zugb=9907) [place] [address] RAD, CHEST, 1 VIEW, NON [id number] 07:39:00Reason for exam:->post cabgShould this be performed at the bedside?->YesFINAL REPORT Chest one view INDICATION: Post CABG COMPARISON: 10/30/2017 IMPRESSION: A left chest tube is in place with redistributed or decreased pleural effusion is slightly larger but small volume left pneumothorax. Median sternotomy changes are noted. The enlarged cardiomediastinal silhouette is stable in size. There are low lung volumes with pulmonary vascular congestion andright basilar atelectasis. Left retrocardiac consolidation or atelectasis is stable. Signed: Nafisa Silva MDReport Verified Date/Time: 10/31/2017 07:39:05 Reading Location: [facility] Radiology Reading Room OXYGEN SATURATION, [id number] 07:12:00 Test Item Value Reference Range Comments O2 SATURATION (MEASURED) (BEAKER) (test iyde=0648) 68.6 % [id number] 07:09:00 Test Item Value Reference Range Comments PHOSPHORUS (BEAKER) (test nife=171) 2.0 mg/dL 2.3-4.7 [id number] 07:09:00 Test Item Value Reference Range Comments MAGNESIUM (BEAKER) (test vcdr=087) 1.9 mg/dL 1.6-2.6 POCT-GLUCOSE [id number] 06:35:00 Test Item Value Reference Range Comments POC-GLUCOSE METER (BEAKER) 104 mg/dL 70-110 TESTED AT [address] (test vahw=4782) [place] [id number] POCT-GLUCOSE [id number] 06:35:00 Test Item Value Reference Range Comments POC-GLUCOSE METER (BEAKER) 109 mg/dL 70-110 TESTED AT [address] (test fqcy=7516) [place] [address] HEPATIC FUNCTION [id number] 04:31:00 Test Item Value Reference Range Comments TOTAL PROTEIN (BEAKER) (test sely=441) 5.8 gm/dL 6.0-8.3 ALBUMIN (BEAKER) (test gbth=9115) 3.7 g/dL 3.5-5.0 BILIRUBIN TOTAL (BEAKER) (test mzed=782) 1.1 mg/dL 0.2-1.2 BILIRUBIN DIRECT (BEAKER) (test zrsf=266) 0.5 mg/dL 0.1-0.5 ALKALINE PHOSPHATASE (BEAKER) (test rhms=228) 105 U/L 40-150 AST (SGOT) (BEAKER) (test kext=034) 555 U/L 5-34 ALT (SGPT) (BEAKER) (test aflf=279) 761 U/L 6-55 BASIC METABOLIC [id number] 04:31:00 Test Item Value Reference Range Comments SODIUM (BEAKER) (test 136 meq/L 136-145 ikgr=327) POTASSIUM (BEAKER) (test 3.8 meq/L 3.5-5.1 nank=369) CHLORIDE (BEAKER) (test 102 meq/L 98-107 vund=489) CO2 (BEAKER) (test 26 meq/L 22-29 tkfa=456) BLOOD UREA NITROGEN 18 mg/dL 7-21 (BEAKER) (test vwcd=054) CREATININE (BEAKER) (test 0.87 mg/dL 0.57-1.25 buzr=151) GLUCOSE RANDOM (BEAKER) 82 mg/dL 70-105 (test oknj=437) CALCIUM (BEAKER) (test 8.6 mg/dL 8.4-10.2 nuad=561) EGFR (BEAKER) (test 91 mL/min/1.73 sq m ESTIMATED GFR IS NOT soxk=0687) ACCURATE CREATININE CLEARANCE IN PREDICTING GLOMERULAR FILTRATION RATE. ESTIMATED GFR IS NOT APPLICABLE FOR DIALYSIS PATIENTS. POCT-GLUCOSE [id number] 04:21:00 Test Item Value Reference Range Comments POC-GLUCOSE METER (BEAKER) 110 mg/dL 70-110 TESTED AT [facility] [address] [place] [address] (test mquq=9129) [place] [address] LACTIC ACID, VENOUS, WHOLE [id number] 04:17:00 Test Item Value Reference Range Comments LACTATE BLOOD VENOUS (2) (BEAKER) (test 1.7 mmol/L 0.5-2.2 ntng=1021) Effective 09/27/2015: Units/Reference Range ChangeNew: 0.5-2.2 mmol/L Previous: 5 -20 mg/dLCBC (HEMOGRAM ONLY)2017-10-31 03:53:00 Test Item Value Reference Range Comments WHITE BLOOD CELL COUNT (BEAKER) (test uuvx=158) 16.5 K/ L 3.5-10.5 RED BLOOD CELL COUNT (BEAKER) (test nkio=731) 3.07 M/ L 4.63-6.08 HEMOGLOBIN (BEAKER) (test vhuk=138) 8.9 GM/DL 13.7-17.5 HEMATOCRIT (BEAKER) (test ufzm=219) 26.8 % 40.1-51.0 MEAN CORPUSCULAR VOLUME (BEAKER) (test waux=728) 87.3 fL 79.0-92.2 MEAN CORPUSCULAR HEMOGLOBIN (BEAKER) (test 29.0 pg 25.7-32.2 clpw=729) MEAN CORPUSCULAR HEMOGLOBIN CONC (BEAKER) (test 33.2 GM/DL 32.3-36.5 lpqd=537) RED CELL DISTRIBUTION WIDTH (BEAKER) (test 14.4 % 11.6-14.4 qwwm=462) PLATELET COUNT (BEAKER) (test whcy=354) 136 K/CU MM 150-450 MEAN PLATELET VOLUME (BEAKER) (test akvd=519) 12.1 fL 9.4-12.4 NUCLEATED RED BLOOD CELLS (BEAKER) (test 0 /100 WBC 0-0 didn=368) POCT-GLUCOSE [id number] 02:20:00 Test Item Value Reference Range Comments POC-GLUCOSE METER (BEAKER) 100 mg/dL 70-110 TESTED AT [address] (test esky=5455) [facility] [address] POCT-GLUCOSE [id number] 01:05:00 Test Item Value Reference Range Comments POC-GLUCOSE METER (BEAKER) 110 mg/dL 70-110 TESTED AT [address] (test jfeb=9055) [facility] [address] POCT-GLUCOSE [id number] 00:31:00 Test Item Value Reference Range Comments POC-GLUCOSE METER (BEAKER) 133 mg/dL 70-110 TESTED AT [address] (test gnrx=5176) [facility] [address] POCT-GLUCOSE [id number] 23:06:00 Test Item Value Reference Range Comments POC-GLUCOSE METER (BEAKER) 182 mg/dL 70-110 TESTED AT [address] (test llfn=4910) [facility] [address] POCT-GLUCOSE [id number] 23:06:00 Test Item Value Reference Range Comments POC-GLUCOSE METER (BEAKER) 258 mg/dL 70-110 TESTED AT [address] (test uayv=9269) [facility] [address] POCT-GLUCOSE [id number] 21:10:00 Test Item Value Reference Range Comments POC-GLUCOSE METER (BEAKER) 174 mg/dL 70-110 TESTED AT [address] (test hava=6735) [facility] [address] POCT-GLUCOSE [id number] 20:06:00 Test Item Value Reference Range Comments POC-GLUCOSE METER (BEAKER) 147 mg/dL 70-110 TESTED AT [address] (test jvzw=9271) [facility] [address] RAD, CHEST, 1 VIEW, NON [id number] 19:22:00Reason for exam:->SOBShould this be performed at the bedside?->YesFINAL REPORT RAD , CHEST, 1 VIEW, NON DEPT INDICATION: SOB COMPARISON: 13 hours prior FINDINGS: Portable frontal view of the chest. IMPRESSION: Support Lines: Near midline thoracic drainage catheters have been removed. The most lateral left thoracostomy tube remains in place. Lungs and pleura: Underinflated lungs. Basilar subsegmental atelectasis. Trace residual left apical pneumothorax.Heart and mediastinum: Stable contours. Stable surgical changes.Additional findings: None. Signed: JR Littlejohn Robert MDReport Verified Date/Time: 10/30/2017 19:22:13 Reading Location: [address] Reading Room [id number] 18:46:00 Test Item Value Reference Range Comments PHOSPHORUS (BEAKER) (test hadq=118) 1.7 mg/dL 2.3-4.7 [id number] 18:46:00 Test Item Value Reference Range Comments MAGNESIUM (BEAKER) (test qiqg=703) 2.2 mg/dL 1.6-2.6 BASIC METABOLIC [id number] 18:46:00 Test Item Value Reference Range Comments SODIUM (BEAKER) (test 134 meq/L 136-145 zijx=257) POTASSIUM (BEAKER) (test 4.3 meq/L 3.5-5.1 hehs=510) CHLORIDE (BEAKER) (test 99 meq/L 98-107 jwll=999) CO2 (BEAKER) (test 28 meq/L 22-29 pwzw=258) BLOOD UREA NITROGEN 20 mg/dL 7-21 (BEAKER) (test hvgd=855) CREATININE (BEAKER) (test 1.02 mg/dL 0.57-1.25 gpnb=095) GLUCOSE RANDOM (BEAKER) 148 mg/dL 70-105 (test pqzz=978) CALCIUM (BEAKER) (test 8.8 mg/dL 8.4-10.2 kirt=109) EGFR (BEAKER) (test 76 mL/min/1.73 sq m ESTIMATED GFR IS NOT yobl=1150) ACCURATE CREATININE CLEARANCE IN PREDICTING GLOMERULAR FILTRATION RATE. ESTIMATED GFR IS NOT APPLICABLE FOR DIALYSIS PATIENTS. LACTIC ACID, VENOUS, WHOLE [id number] 18:39:00 Test Item Value Reference Range Comments LACTATE BLOOD VENOUS (2) (BEAKER) (test 2.8 mmol/L 0.5-2.2 zwuy=3412) Effective 09/27/2015: Units/Reference Range ChangeNew: 0.5-2.2 mmol/L Previous: 5 -20 mg/dLCBC W/PLT COUNT & AUTO [id number] 18:11:00 Test Item Value Reference Range Comments WHITE BLOOD CELL COUNT (BEAKER) (test ugee=980) 15.0 K/ L 3.5-10.5 RED BLOOD CELL COUNT (BEAKER) (test pwqe=763) 3.20 M/ L 4.63-6.08 HEMOGLOBIN (BEAKER) (test pznx=798) 9.2 GM/DL 13.7-17.5 HEMATOCRIT (BEAKER) (test baaz=450) 28.1 % 40.1-51.0 MEAN CORPUSCULAR VOLUME (BEAKER) (test txgp=510) 87.8 fL 79.0-92.2 MEAN CORPUSCULAR HEMOGLOBIN (BEAKER) (test 28.8 pg 25.7-32.2 pygf=347) MEAN CORPUSCULAR HEMOGLOBIN CONC (BEAKER) (test 32.7 GM/DL 32.3-36.5 nomm=164) RED CELL DISTRIBUTION WIDTH (BEAKER) (test 14.1 % 11.6-14.4 nmoh=570) PLATELET COUNT (BEAKER) (test gjkx=785) 133 K/CU MM 150-450 MEAN PLATELET VOLUME (BEAKER) (test vwiz=711) 12.1 fL 9.4-12.4 NUCLEATED RED BLOOD CELLS (BEAKER) (test 0 /100 WBC 0-0 ybyb=585) NEUTROPHILS RELATIVE PERCENT (BEAKER) (test 81 % jntr=744) LYMPHOCYTES RELATIVE PERCENT (BEAKER) (test 10 % cltw=153) MONOCYTES RELATIVE PERCENT (BEAKER) (test 8 % fanq=800) EOSINOPHILS RELATIVE PERCENT (BEAKER) (test 0 % gvhp=464) BASOPHILS RELATIVE PERCENT (BEAKER) (test 0 % xqjh=145) NEUTROPHILS ABSOLUTE COUNT (BEAKER) (test 12.24 K/ L 1.78-5.38 sggy=893) LYMPHOCYTES ABSOLUTE COUNT (BEAKER) (test 1.53 K/ L 1.32-3.57 aamt=314) MONOCYTES ABSOLUTE COUNT (BEAKER) (test 1.12 K/ L 0.30-0.82 dctl=888) EOSINOPHILS ABSOLUTE COUNT (BEAKER) (test 0.01 K/ L 0.04-0.54 pxvz=814) BASOPHILS ABSOLUTE COUNT (BEAKER) (test 0.04 K/ L 0.01-0.08 rmmq=252) IMMATURE GRANULOCYTES-RELATIVE PERCENT (BEAKER) 1 % 0-1 (test suhl=9751) POCT-GLUCOSE [id number] 17:53:00 Test Item Value Reference Range Comments POC-GLUCOSE METER (BEAKER) 171 mg/dL 70-110 TESTED AT [facility] [address] [facility] (test nkcf=9102) [facility] [address] POCT-GLUCOSE [id number] 15:48:00 Test Item Value Reference Range Comments POC-GLUCOSE METER (BEAKER) 215 mg/dL 70-110 TESTED AT [facility] [address] (test nazs=8558) [place] [address] LACTIC ACID, VENOUS, WHOLE [id number] 14:56:00 Test Item Value Reference Range Comments LACTATE BLOOD VENOUS (2) (BEAKER) (test 2.9 mmol/L 0.5-2.2 eptk=9198) Effective 09/27/2015: Units/Reference Range ChangeNew: 0.5-2.2 mmol/L Previous: 5 -20 mg/dLTROPONIN [id number] 12:37:00 Test Item Value Reference Range Comments TROPONIN I (BEAKER) (test kema=246) 1.80 ng/mL 0.00-0.03 Troponin I (TnI) levels must be interpreted in the context of the presenting symptoms and the clinical findings. Elevated TnI levels indicate myocardial damage, but are not specific for ischemic heart disease. Elevated TnI levels are seen in patients with other cardiac conditions (including myocarditis and congestive heart failure), and slight TnI elevations occur in patients with other conditions, including sepsis, renal failure, acidosis, acute neurological disease, and persistent tachyarrhythmia.HEPATIC FUNCTION [id number] 12:16: 00 Test Item Value Reference Range Comments TOTAL PROTEIN (BEAKER) (test entx=993) 5.9 gm/dL 6.0-8.3 ALBUMIN (BEAKER) (test uxbk=9570) 3.8 g/dL 3.5-5.0 BILIRUBIN TOTAL (BEAKER) (test sydc=912) 1.1 mg/dL 0.2-1.2 BILIRUBIN DIRECT (BEAKER) (test pvvv=136) 0.6 mg/dL 0.1-0.5 ALKALINE PHOSPHATASE (BEAKER) (test kaaa=830) 66 U/L 40-150 AST (SGOT) (BEAKER) (test eubm=688) 151 U/L 5-34 ALT (SGPT) (BEAKER) (test rfwe=796) 200 U/L 6-55 COMPREHENSIVE METABOLIC [id number] 12:16:00 Test Item Value Reference Range Comments TOTAL PROTEIN (BEAKER) 5.9 gm/dL 6.0-8.3 (test zjca=638) ALBUMIN (BEAKER) (test 3.8 g/dL 3.5-5.0 pvgt=8617) ALKALINE PHOSPHATASE 66 U/L 40-150 (BEAKER) (test lhgm=203) BILIRUBIN TOTAL (BEAKER) 1.1 mg/dL 0.2-1.2 (test xjvl=333) SODIUM (BEAKER) (test 134 meq/L 136-145 itpv=694) POTASSIUM (BEAKER) (test 4.7 meq/L 3.5-5.1 zxwm=314) CHLORIDE (BEAKER) (test 101 meq/L 98-107 iyzc=490) CO2 (BEAKER) (test 23 meq/L 22-29 nfwg=182) BLOOD UREA NITROGEN 20 mg/dL 7-21 (BEAKER) (test sdup=547) CREATININE (BEAKER) (test 1.20 mg/dL 0.57-1.25 vjpe=161) GLUCOSE RANDOM (BEAKER) 262 mg/dL 70-105 (test blla=035) CALCIUM (BEAKER) (test 8.8 mg/dL 8.4-10.2 qldg=103) AST (SGOT) (BEAKER) (test 151 U/L 5-34 josf=858) ALT (SGPT) (BEAKER) (test 200 U/L 6-55 dhrz=661) EGFR (BEAKER) (test 63 mL/min/1.73 sq m ESTIMATED GFR IS NOT djec=6287) ACCURATE CREATININE CLEARANCE IN PREDICTING GLOMERULAR FILTRATION RATE. ESTIMATED GFR IS NOT APPLICABLE FOR DIALYSIS PATIENTS. POCT-BLOOD GASES, [id number] 11:45:00 Test Item Value Reference Range Comments TEMP, CELSIUS-POC (BEAKER) 37.0 (test pyfa=9143) FIO2-POC (BEAKER) (test TESTED AT [facility] [address] [facility] xuce=2453) [facility] [address] PH, ARTERIAL-POC (BEAKER) 7.406 7.350-7.450 (test sbiv=2765) PCO2, ARTERIAL-POC (BEAKER) 41.1 mm Hg 35.0-45.0 (test eugs=0302) PO2, ARTERIAL-POC (BEAKER) 78.0 mm Hg 80.0-90.0 (test pzxw=4205) SO2, ARTERIAL-POC (BEAKER) 95.0 % 96.0-97.0 (test bzhg=2892) HCO3, ARTERIAL-POC (BEAKER) 25.8 meq/L 21.0-29.0 (test aesk=0954) BASE EXCESS, ARTERIAL-POC 1.0 meq/L -2.0-3.0 (BEAKER) (test lyzz=8095) [id number] 11:45:00 Test Item Value Reference Range Comments POC-SODIUM (BEAKER) (test 132 meq/L 135-148 TESTED AT [address] wjsw=1259) [place] [address] [id number] 11:45:00 Test Item Value Reference Range Comments POC-POTASSIUM (BEAKER) (test 4.5 meq/L 3.6-5.5 TESTED AT [address] eyhn=2429) [place] [address] [id number] 11:45:00 Test Item Value Reference Range Comments POC-GLUCOSE (BEAKER) (test 254 mg/dL 70-110 TESTED AT [address] dbit=5131) [place] [address] POCT-CALCIUM [id number] 11:45:00 Test Item Value Reference Range Comments POC-CALCIUM IONIZED (BEAKER) 1.18 mmol/L 1.12-1.27 TESTED AT [address] (test cgdj=8221) [place] [address] [id number] 11:45:00 Test Item Value Reference Range Comments POC-HEMATOCRIT (BEAKER) (test 23 % 40-50 TESTED AT [address] ouoa=8626) [place] [address] [id number] 11:45:00 Test Item Value Reference Range Comments POC-HEMOGLOBIN (BEAKER) 7.8 g/dL 13.0-16.8 TESTED AT [address] (test lzco=8752) [place] [address]TESTED AT [place] [address] POCT-LACTIC ACID, [id number] 10:04:00 Test Item Value Reference Range Comments POC-LACTIC ACID, VENOUS 3.1 mmol/L 0.9-1.7 TESTED AT [place] [address] [facility] (BEAKER) (test ezde=5856) [place] [address] POCT-GLUCOSE [id number] 07:46:00 Test Item Value Reference Range Comments POC-GLUCOSE METER (BEAKER) 270 mg/dL 70-110 TESTED AT [facility] [address] (test yace=1392) [facility] [address] [id number] 07:16:00 Test Item Value Reference Range Comments PHOSPHORUS (BEAKER) (test htpi=913) 1.3 mg/dL 2.3-4.7 [id number] 07:07:00 Test Item Value Reference Range Comments MAGNESIUM (BEAKER) (test ccel=880) 2.0 mg/dL 1.6-2.6 BASIC METABOLIC [id number] 07:07:00 Test Item Value Reference Range Comments SODIUM (BEAKER) (test 134 meq/L 136-145 qlwv=902) POTASSIUM (BEAKER) (test 4.1 meq/L 3.5-5.1 xeni=796) CHLORIDE (BEAKER) (test 100 meq/L 98-107 nkws=165) CO2 (BEAKER) (test 26 meq/L 22-29 xjwi=469) BLOOD UREA NITROGEN 17 mg/dL 7-21 (BEAKER) (test ciiq=136) CREATININE (BEAKER) (test 0.87 mg/dL 0.57-1.25 mwdo=600) GLUCOSE RANDOM (BEAKER) 253 mg/dL 70-105 (test ufcy=493) CALCIUM (BEAKER) (test 9.1 mg/dL 8.4-10.2 tqiq=996) EGFR (BEAKER) (test 91 mL/min/1.73 sq m ESTIMATED GFR IS NOT pifw=6481) ACCURATE CREATININE CLEARANCE IN PREDICTING GLOMERULAR FILTRATION RATE. ESTIMATED GFR IS NOT APPLICABLE FOR DIALYSIS PATIENTS. CBC (HEMOGRAM ONLY)2017-10-30 07:00:00 Test Item Value Reference Range Comments WHITE BLOOD CELL COUNT (BEAKER) (test yjcn=649) 16.4 K/ L 3.5-10.5 RED BLOOD CELL COUNT (BEAKER) (test ucir=749) 2.85 M/ L 4.63-6.08 HEMOGLOBIN (BEAKER) (test jhjq=970) 8.1 GM/DL 13.7-17.5 HEMATOCRIT (BEAKER) (test tlhm=468) 24.3 % 40.1-51.0 MEAN CORPUSCULAR VOLUME (BEAKER) (test ljwn=560) 85.3 fL 79.0-92.2 MEAN CORPUSCULAR HEMOGLOBIN (BEAKER) (test 28.4 pg 25.7-32.2 kjtd=972) MEAN CORPUSCULAR HEMOGLOBIN CONC (BEAKER) (test 33.3 GM/DL 32.3-36.5 zyih=356) RED CELL DISTRIBUTION WIDTH (BEAKER) (test 14.5 % 11.6-14.4 ioog=778) PLATELET COUNT (BEAKER) (test noqq=130) 168 K/CU MM 150-450 MEAN PLATELET VOLUME (BEAKER) (test ocdo=550) 12.4 fL 9.4-12.4 NUCLEATED RED BLOOD CELLS (BEAKER) (test 0 /100 WBC 0-0 hhkf=042) RAD, CHEST, 1 VIEW, NON [id number] 05:44:00Reason for exam:->post cabgShould this be performed at the bedside?->YesFINAL REPORT Chest one view. Clinical history: post cabg Comparison: Chest radiograph 10/29/17, 3:19 AM Technique: A single frontal view of the chest was obtained. Findings: There has been interval removal of Parrish-Aleida catheter. Mediastinal drain and left tubes are unchanged. Cardiomediastinal silhouette is unchanged. The patient is status post median sternotomy and CABG. Thereis improved pulmonary edema, with residual pulmonary vascular congestion. There is a small left pleural effusion. There is discoid atelectasis in the right upper lobe. There is a retrocardiac opacity which may represent subsegmental atelectasis and/or pneumonia. There is no pneumothorax. Signed: Rosmery Rogel MDReport Verified Date/Time: 10/30/2017 05:44:31 Reading Location: [address] Transitional Reading Room POCT-GLUCOSE [id number] 00:20:00 Test Item Value Reference Range Comments POC-GLUCOSE METER (BEAKER) 307 mg/dL 70-110 TESTED AT [facility] [address] [facility] (test ixqh=2487) [facility] [address] POCT-GLUCOSE [id number] 21:38:00 Test Item Value Reference Range Comments POC-GLUCOSE METER (BEAKER) 307 mg/dL 70-110 Notified SAMANTHA BOOTHE/TESTED AT [facility] (test lbja=4564) [address] [facility] [address] POCT-GLUCOSE [id number] 16:55:00 Test Item Value Reference Range Comments POC-GLUCOSE METER (BEAKER) 229 mg/dL 70-110 TESTED AT [address] (test tzmz=9412) [place] [id number] VRE [id number] 10:51:00 Test Item Value Reference Range Comments CULTURE (BEAKER) (test No vancomycin-resistant enre=8697) Enterococcus isolated POCT-GLUCOSE [id number] 04:36:00 Test Item Value Reference Range Comments POC-GLUCOSE METER (BEAKER) 123 mg/dL 70-110 TESTED AT [address] (test gffi=4851) [place] [address] [id number] 04:12:00 Test Item Value Reference Range Comments PHOSPHORUS (BEAKER) (test fckn=577) 3.4 mg/dL 2.3-4.7 [id number] 04:12:00 Test Item Value Reference Range Comments MAGNESIUM (BEAKER) (test ybdx=791) 1.9 mg/dL 1.6-2.6 BASIC METABOLIC [id number] 04:12:00 Test Item Value Reference Range Comments SODIUM (BEAKER) (test 139 meq/L 136-145 bhhe=087) POTASSIUM (BEAKER) (test 3.8 meq/L 3.5-5.1 zpaz=907) CHLORIDE (BEAKER) (test 107 meq/L 98-107 aeec=906) CO2 (BEAKER) (test 24 meq/L 22-29 mwpy=057) BLOOD UREA NITROGEN 10 mg/dL 7-21 (BEAKER) (test jies=616) CREATININE (BEAKER) (test 0.88 mg/dL 0.57-1.25 gtfx=199) GLUCOSE RANDOM (BEAKER) 120 mg/dL 70-105 (test eaxr=349) CALCIUM (BEAKER) (test 8.7 mg/dL 8.4-10.2 truk=218) EGFR (BEAKER) (test 90 mL/min/1.73 sq m ESTIMATED GFR IS NOT kvwe=4539) ACCURATE CREATININE CLEARANCE IN PREDICTING GLOMERULAR FILTRATION RATE. ESTIMATED GFR IS NOT APPLICABLE FOR DIALYSIS PATIENTS. LACTIC ACID, ARTERIAL, WHOLE [id number] 04:03:00 Test Item Value Reference Range Comments LACTATE BLOOD ARTERIAL (2) (BEAKER) (test 0.9 mmol/L 0.5-2.2 hurd=1878) Effective 09/27/2015: Units/Reference Range ChangeNew: 0.5-2.2 mmol/L Previous: 5 -20 mg/dLCBC (HEMOGRAM ONLY)2017-10-29 03:58:00 Test Item Value Reference Range Comments WHITE BLOOD CELL COUNT (BEAKER) (test ztgq=568) 8.4 K/ L 3.5-10.5 RED BLOOD CELL COUNT (BEAKER) (test lzrk=861) 2.83 M/ L 4.63-6.08 HEMOGLOBIN (BEAKER) (test chqn=482) 8.0 GM/DL 13.7-17.5 HEMATOCRIT (BEAKER) (test ddwj=534) 24.1 % 40.1-51.0 MEAN CORPUSCULAR VOLUME (BEAKER) (test mpjb=226) 85.2 fL 79.0-92.2 MEAN CORPUSCULAR HEMOGLOBIN (BEAKER) (test 28.3 pg 25.7-32.2 velp=751) MEAN CORPUSCULAR HEMOGLOBIN CONC (BEAKER) (test 33.2 GM/DL 32.3-36.5 pebp=800) RED CELL DISTRIBUTION WIDTH (BEAKER) (test 14.3 % 11.6-14.4 tpth=710) PLATELET COUNT (BEAKER) (test rgxf=984) 153 K/CU MM 150-450 MEAN PLATELET VOLUME (BEAKER) (test ukag=938) 11.4 fL 9.4-12.4 NUCLEATED RED BLOOD CELLS (BEAKER) (test 0 /100 WBC 0-0 bmqy=278) BLOOD GAS, [id number] 03:52:00 Test Item Value Reference Range Comments PH ARTERIAL (BEAKER) (test napf=103) 7.38 7.35-7.45 PCO2 ARTERIAL (BEAKER) (test pxyg=872) 45 mmHg 35-45 PO2 ARTERIAL (BEAKER) (test hnjo=406) 90 mmHg 80-90 O2 SATURATION ARTERIAL (BEAKER) (test ammk=795) 96.5 % 96.0-97.0 HCO3 ARTERIAL (BEAKER) (test mnpl=031) 26 mmol/L 21-29 BASE EXCESS ARTERIAL (BEAKER) (test jbfi=571) 0.6 mmol/L -2.0-3.0 PATIENT TEMPERATURE (BEAKER) (test htzh=9214) 37.6 C FIO2 (BEAKER) (test wtah=3929) 32.0 % CALCIUM, [id number] 03:52:00 Test Item Value Reference Range Comments CALCIUM IONIZED (BEAKER) (test pbcj=247) 1.12 mmol/L 1.12-1.27 PH, BLOOD (BEAKER) (test mtyd=3296) 7.39 OXYGEN SATURATION, [id number] 03:49:00 Test Item Value Reference Range Comments O2 SATURATION (MEASURED) (BEAKER) (test auet=0560) 66.1 % RAD, CHEST, 1 VIEW, NON [id number] 03:39:00Reason for exam:->post cabgShould this be performed at the bedside?->YesFINAL REPORT Comparison exam: 10/28/2017 No pneumothorax, focal pulmonary consolidation, or significant pleural effusion. Stable cardiomediastinal contours. Appropriate position of the support hardware. Signed: Misha Mckenzie Verified Date/Time: 10/29/2017 03:39:23 Reading Location: [address] Reading Room POCT-GLUCOSE [id number] 00:54:00 Test Item Value Reference Range Comments POC-GLUCOSE METER (BEAKER) 131 mg/dL 70-110 TESTED AT [address] (test tanj=6052) [facility] [address] POCT-GLUCOSE [id number] 23:47:00 Test Item Value Reference Range Comments POC-GLUCOSE METER (BEAKER) 149 mg/dL 70-110 TESTED AT [address] (test lqbo=1777) [facility] [address] POCT-GLUCOSE [id number] 23:14:00 Test Item Value Reference Range Comments POC-GLUCOSE METER (BEAKER) 123 mg/dL 70-110 TESTED AT [address] (test pujb=1125) [facility] [address] BLOOD GAS, [id number] 23:06:00 Test Item Value Reference Range Comments PH ARTERIAL (BEAKER) (test cdpn=932) 7.40 7.35-7.45 PCO2 ARTERIAL (BEAKER) (test kpfo=186) 43 mmHg 35-45 PO2 ARTERIAL (BEAKER) (test byxw=732) 117 mmHg 80-90 O2 SATURATION ARTERIAL (BEAKER) (test yniw=550) 98.0 % 96.0-97.0 HCO3 ARTERIAL (BEAKER) (test cpas=933) 26 mmol/L 21-29 BASE EXCESS ARTERIAL (BEAKER) (test qxes=533) 0.9 mmol/L -2.0-3.0 PATIENT TEMPERATURE (BEAKER) (test rbnr=7476) 38.1 C FIO2 (BEAKER) (test icfe=4717) 40.0 % LACTIC ACID, ARTERIAL, WHOLE [id number] 22:06:00 Test Item Value Reference Range Comments LACTATE BLOOD ARTERIAL (2) (BEAKER) (test 3.3 mmol/L 0.5-2.2 uvvu=2063) Effective 09/27/2015: Units/Reference Range ChangeNew: 0.5-2.2 mmol/L Previous: 5 -20 mg/dLPOCT-GLUCOSE [id number] 21:49:00 Test Item Value Reference Range Comments POC-GLUCOSE METER (BEAKER) 164 mg/dL 70-110 TESTED AT [address] (test rfuk=8277) [place] [id number] POCT-GLUCOSE [id number] 21:32:00 Test Item Value Reference Range Comments POC-GLUCOSE METER (BEAKER) 146 mg/dL 70-110 TESTED AT [address] (test tkxn=0092) [facility] [address] BLOOD GAS, [id number] 21:27:00 Test Item Value Reference Range Comments PH ARTERIAL (BEAKER) (test xlwx=167) 7.35 7.35-7.45 PCO2 ARTERIAL (BEAKER) (test gdgm=282) 46 mmHg 35-45 PO2 ARTERIAL (BEAKER) (test diiz=605) 123 mmHg 80-90 O2 SATURATION ARTERIAL (BEAKER) (test rqrl=465) 98.1 % 96.0-97.0 HCO3 ARTERIAL (BEAKER) (test jxij=620) 25 mmol/L 21-29 BASE EXCESS ARTERIAL (BEAKER) (test mytz=170) -0.8 mmol/L -2.0-3.0 PATIENT TEMPERATURE (BEAKER) (test sicv=0820) 38.2 C FIO2 (BEAKER) (test jwyg=8888) 40.0 % HGB/HCT (H&H) - STAT [id number] 21:27:00 Test Item Value Reference Range Comments HEMOGLOBIN (BEAKER) (test qkhd=667) 8.2 g/dL 13.0-16.8 HEMATOCRIT (BEAKER) (test micp=624) 24.0 % 40.0-50.0 LACTIC ACID, ARTERIAL, WHOLE [id number] 20:36:00 Test Item Value Reference Range Comments LACTATE BLOOD ARTERIAL (2) (BEAKER) (test 3.8 mmol/L 0.5-2.2 qgmt=8714) Effective 09/27/2015: Units/Reference Range ChangeNew: 0.5-2.2 mmol/L Previous: 5 -20 mg/[id number] 20:34:00 Test Item Value Reference Range Comments MAGNESIUM (BEAKER) (test tegl=014) 2.1 mg/dL 1.6-2.6 POTASSIUM-STAT [id number] 20:11:00 Test Item Value Reference Range Comments POTASSIUM (BEAKER) (test tyju=468) 3.6 meq/L 3.6-5.5 CALCIUM, [id number] 20:11:00 Test Item Value Reference Range Comments CALCIUM IONIZED (BEAKER) (test gtpb=685) 1.17 mmol/L 1.12-1.27 PH, BLOOD (BEAKER) (test pnvu=4778) 7.34 BLOOD GAS, [id number] 20:11:00 Test Item Value Reference Range Comments PH ARTERIAL (BEAKER) (test rtdk=045) 7.34 7.35-7.45 PCO2 ARTERIAL (BEAKER) (test jhzl=614) 47 mmHg 35-45 PO2 ARTERIAL (BEAKER) (test ezgb=661) 152 mmHg 80-90 O2 SATURATION ARTERIAL (BEAKER) (test vzly=509) 98.7 % 96.0-97.0 HCO3 ARTERIAL (BEAKER) (test nuji=513) 24 mmol/L 21-29 BASE EXCESS ARTERIAL (BEAKER) (test vcuu=997) -1.3 mmol/L -2.0-3.0 PATIENT TEMPERATURE (BEAKER) (test aklp=6987) 38.3 C FIO2 (BEAKER) (test ykwk=2836) 50.0 % HGB/HCT (H&H) - STAT [id number] 20:11:00 Test Item Value Reference Range Comments HEMOGLOBIN (BEAKER) (test drsy=676) 8.2 g/dL 13.0-16.8 HEMATOCRIT (BEAKER) (test uhws=103) 24.0 % 40.0-50.0 POCT-GLUCOSE [id number] 19:46:00 Test Item Value Reference Range Comments POC-GLUCOSE METER (BEAKER) 151 mg/dL 70-110 TESTED AT [address] (test dasc=8615) [place] [id number] POCT-GLUCOSE [id number] 19:05:00 Test Item Value Reference Range Comments POC-GLUCOSE METER (BEAKER) 141 mg/dL 70-110 TESTED AT [address] (test lyju=5229) [facility] [id number] POCT-GLUCOSE [id number] 19:05:00 Test Item Value Reference Range Comments POC-GLUCOSE METER (BEAKER) 143 mg/dL 70-110 TESTED AT [address] (test eiea=7143) [place] [id number] POCT-GLUCOSE [id number] 19:05:00 Test Item Value Reference Range Comments POC-GLUCOSE METER (BEAKER) 162 mg/dL 70-110 TESTED AT [address] (test yrmw=9484) [facility] [id number] RAD, CHEST, 1 VIEW, NON [id number] 17:29:00Reason for exam:->post cabgShould this be performed at the bedside?->YesFINAL REPORT TECHNIQUE: Frontal chest radiograph dated 10/28/2017. CLINICAL HISTORY: Post CABG COMPARISON STUDY: Chest radiograph dated 10/27/2017 IMPRESSION: Endotracheal tube is 5.9 cm above the naheed. Right-sided Parrish-Aleida catheter tip projects over the region of the main pulmonary artery. Enteric tube is seen with the tip in the region of the gastric fundus. Left-sided chest tube and mediastinal drains are in place. There is a small amount of left lung base atelectasis. No pneumothorax. Cardiomediastinal silhouette is normal in size. No pulmonary edema. No fracture. Midline sternotomy wires are intact. Signed: Ashlee Solomon MDReport Verified Date/Time: 10/28/2017 17:29:10 Reading Location: [facility] Radiology Reading Room [id number] 16:26:00 Test Item Value Reference Range Comments PHOSPHORUS (BEAKER) (test 1.2 mg/dL 2.3-4.7 Specimen slightly hemolyzed qzjp=369) [id number] 16:20:00 Test Item Value Reference Range Comments MAGNESIUM (BEAKER) (test 2.7 mg/dL 1.6-2.6 Specimen slightly hemolyzed lrvs=513) BASIC METABOLIC [id number] 16:20:00 Test Item Value Reference Range Comments SODIUM (BEAKER) (test 140 meq/L 136-145 ofgn=570) POTASSIUM (BEAKER) (test 3.6 meq/L 3.5-5.1 Specimen slightly qpvf=876) hemolyzed CHLORIDE (BEAKER) (test 109 meq/L 98-107 yzgn=964) CO2 (BEAKER) (test 21 meq/L 22-29 omoj=199) BLOOD UREA NITROGEN 16 mg/dL 7-21 (BEAKER) (test dkht=112) CREATININE (BEAKER) (test 1.14 mg/dL 0.57-1.25 Specimen slightly nhph=065) hemolyzed GLUCOSE RANDOM (BEAKER) 262 mg/dL 70-105 (test bwdn=436) CALCIUM (BEAKER) (test 9.6 mg/dL 8.4-10.2 zkiy=922) EGFR (BEAKER) (test 67 mL/min/1.73 sq m ESTIMATED GFR IS NOT orpy=9936) ACCURATE CREATININE CLEARANCE IN PREDICTING GLOMERULAR FILTRATION RATE. ESTIMATED GFR IS NOT APPLICABLE FOR DIALYSIS PATIENTS. LACTIC ACID, ARTERIAL, WHOLE [id number] 16:16:00 Test Item Value Reference Range Comments LACTATE BLOOD ARTERIAL (2) 6.1 mmol/L 0.5-2.2 Specimen slightly hemolyzed (BEAKER) (test imbt=4217) Effective 09/27/2015: Units/Reference Range ChangeNew: 0.5-2.2 mmol/L Previous: 5 -20 mg/[id number] 16:12:00 Test Item Value Reference Range Comments FIBRINOGEN LEVEL (BEAKER) (test kyrk=709) 238 mg/dl 225-434 [id number] 16:12:00 Test Item Value Reference Range Comments PARTIAL THROMBOPLASTIN TIME (BEAKER) (test 35.2 seconds 22.5-36.0 bwij=118) CBC W/PLT COUNT & AUTO [id number] 16:12:00 Test Item Value Reference Range Comments WHITE BLOOD CELL COUNT (BEAKER) (test ygrv=627) 16.8 K/ L 3.5-10.5 RED BLOOD CELL COUNT (BEAKER) (test auca=112) 3.35 M/ L 4.63-6.08 HEMOGLOBIN (BEAKER) (test jxzg=472) 9.6 GM/DL 13.7-17.5 HEMATOCRIT (BEAKER) (test lgtg=850) 28.4 % 40.1-51.0 MEAN CORPUSCULAR VOLUME (BEAKER) (test gpom=131) 84.8 fL 79.0-92.2 MEAN CORPUSCULAR HEMOGLOBIN (BEAKER) (test 28.7 pg 25.7-32.2 bqif=645) MEAN CORPUSCULAR HEMOGLOBIN CONC (BEAKER) (test 33.8 GM/DL 32.3-36.5 dawp=377) RED CELL DISTRIBUTION WIDTH (BEAKER) (test 14.0 % 11.6-14.4 ctca=782) PLATELET COUNT (BEAKER) (test oknl=591) 182 K/CU MM 150-450 MEAN PLATELET VOLUME (BEAKER) (test tnbs=432) 11.4 fL 9.4-12.4 NUCLEATED RED BLOOD CELLS (BEAKER) (test 0 /100 WBC 0-0 iyle=960) NEUTROPHILS RELATIVE PERCENT (BEAKER) (test 80 % fjdn=412) LYMPHOCYTES RELATIVE PERCENT (BEAKER) (test 10 % tngk=708) MONOCYTES RELATIVE PERCENT (BEAKER) (test 9 % rmrm=161) EOSINOPHILS RELATIVE PERCENT (BEAKER) (test 0 % cflv=496) BASOPHILS RELATIVE PERCENT (BEAKER) (test 0 % hizd=315) NEUTROPHILS ABSOLUTE COUNT (BEAKER) (test 13.52 K/ L 1.78-5.38 iuqk=663) LYMPHOCYTES ABSOLUTE COUNT (BEAKER) (test 1.62 K/ L 1.32-3.57 tfmn=300) MONOCYTES ABSOLUTE COUNT (BEAKER) (test 1.46 K/ L 0.30-0.82 wabu=442) EOSINOPHILS ABSOLUTE COUNT (BEAKER) (test 0.04 K/ L 0.04-0.54 ldjk=873) BASOPHILS ABSOLUTE COUNT (BEAKER) (test 0.05 K/ L 0.01-0.08 qmec=384) IMMATURE GRANULOCYTES-RELATIVE PERCENT (BEAKER) 1 % 0-1 (test bpwk=1361) PROTHROMBIN [id number] 16:11:00 Test Item Value Reference Range Comments PROTIME (BEAKER) (test pcta=638) 16.6 seconds 11.7-14.7 INR (BEAKER) (test awpj=560) 1.3 <=5.9 RECOMMENDED COUMADIN/WARFARIN INR THERAPY RANGESSTANDARD DOSE: 2.0 - 3.0 Includes: PROPHYLAXIS forvenous thrombosis, systemic embolization; TREATMENT for venous thrombosis and/or pulmonary embolus.HIGH RISK: Target INR is 2.5-3.5 for patients with mechanical heart valves.BLOOD GAS, [id number] 15:59:00 Test Item Value Reference Range Comments PH ARTERIAL (BEAKER) (test kuoj=302) 7.32 7.35-7.45 PCO2 ARTERIAL (BEAKER) (test hlyc=909) 46 mmHg 35-45 PO2 ARTERIAL (BEAKER) (test xkcq=389) 85 mmHg 80-90 O2 SATURATION ARTERIAL (BEAKER) (test gqfg=590) 95.5 % 96.0-97.0 HCO3 ARTERIAL (BEAKER) (test oiwe=563) 23 mmol/L 21-29 BASE EXCESS ARTERIAL (BEAKER) (test sake=630) -3.4 mmol/L -2.0-3.0 PATIENT TEMPERATURE (BEAKER) (test vhkn=0518) 37.0 C POTASSIUM-STAT [id number] 15:59:00 Test Item Value Reference Range Comments POTASSIUM (BEAKER) (test kpcn=443) 3.4 meq/L 3.6-5.5 GLUCOSE-STAT [id number] 15:59:00 Test Item Value Reference Range Comments GLUCOSE RANDOM (BEAKER) (test tyzw=785) 255 mg/dL 70-110 HEMOGLOBIN-STAT [id number] 15:59:00 Test Item Value Reference Range Comments HEMOGLOBIN (BEAKER) (test uvik=822) 10.4 g/dL 13.0-16.8 HGB/HCT (H&H) - STAT [id number] 15:59:00 Test Item Value Reference Range Comments HEMOGLOBIN (BEAKER) (test orul=395) 10.4 GM/DL 13.0-16.8 HEMATOCRIT (BEAKER) (test tznq=396) 31.0 % 40.0-50.0 CALCIUM, [id number] 15:59:00 Test Item Value Reference Range Comments CALCIUM IONIZED (BEAKER) (test khlh=822) 1.21 mmol/L 1.12-1.27 PH, BLOOD (BEAKER) (test wbaq=3288) 7.32 SODIUM NA-STAT [id number] 15:58:00 Test Item Value Reference Range Comments SODIUM (BEAKER) (test uknj=144) 138 meq/L 135-148 OXYGEN SATURATION, [id number] 15:58:00 Test Item Value Reference Range Comments O2 SATURATION (MEASURED) (BEAKER) (test etvw=6478) 64.0 % [id number] 15:10:00 Test Item Value Reference Range Comments ACTIVATED CLOTTING TIME 114 sec TESTED AT [address] (BEAKER) (test ufjx=749) [place] [id number] 15:10:00 Test Item Value Reference Range Comments ACTIVATED CLOTTING TIME 450 sec TESTED AT [place] [address] [facility] (BEAKER) (test nvth=697) [place] [address] [id number] 15:10:00 Test Item Value Reference Range Comments ACTIVATED CLOTTING TIME 532 sec TESTED AT [place] [address] [facility] (BEAKER) (test kxle=997) [place] [address] [id number] 15:10:00 Test Item Value Reference Range Comments ACTIVATED CLOTTING TIME 472 sec TESTED AT [facility] [address] (BEAKER) (test lnlb=864) [place] [address] [id number] 15:10:00 Test Item Value Reference Range Comments ACTIVATED CLOTTING TIME 494 sec TESTED AT [place] [address] [address] (BEAKER) (test fzpy=457) [place] [address] [id number] 15:10:00 Test Item Value Reference Range Comments ACTIVATED CLOTTING TIME 389 sec TESTED AT [place] [address] [facility] (BEAKER) (test mykh=704) [place] [address] [id number] 15:10:00 Test Item Value Reference Range Comments ACTIVATED CLOTTING TIME 461 sec TESTED AT [place] [address] [address] (BEAKER) (test wpoz=133) [place] [address] THROMBOELASTOGRAPH ([id number] 14:36:00 Test Item Value Reference Range Comments TEG ACTIVATED CLOTTING TIME (BEAKER) (test 5.1 minutes 4.0-7.0 ynmb=6225) TEG FIBRINOGEN ACTIVITY (BEAKER) (test 69.4 degrees 61.0-73.0 deef=4524) TEG PLT. AGGREGATION (BEAKER) (test froi=3277) 54.2 MM 55.0-65.0 TGH ACTIVATED CLOTTING TIME (BEAKER) (test 5.2 minutes 4.0-7.0 sgbz=1389) TGH FIBRINOGEN ACTIVITY (BEAKER) (test 77.3 degrees 61.0-73.0 ombw=1718) TGH PLT. AGGREGATION (BEAKER) (test ffbq=4030) 64.1 MM 55.0-65.0 CALCIUM, [id number] 14:31:00 Test Item Value Reference Range Comments CALCIUM IONIZED (BEAKER) (test jrbs=397) 1.39 mmol/L 1.12-1.27 PH, BLOOD (BEAKER) (test hikj=0105) 7.30 BLOOD GAS, [id number] 14:30:00 Test Item Value Reference Range Comments PH ARTERIAL (BEAKER) (test dthk=925) 7.31 7.35-7.45 PCO2 ARTERIAL (BEAKER) (test hxzs=580) 45 mmHg 35-45 PO2 ARTERIAL (BEAKER) (test kzjj=707) 112 mmHg 80-90 O2 SATURATION ARTERIAL (BEAKER) (test bqbv=916) 97.7 % 96.0-97.0 HCO3 ARTERIAL (BEAKER) (test znub=543) 22 mmol/L 21-29 BASE EXCESS ARTERIAL (BEAKER) (test gfxp=869) -4.4 mmol/L -2.0-3.0 PATIENT TEMPERATURE (BEAKER) (test boxm=9388) 36.7 C FIO2 (BEAKER) (test ratr=9484) 100.0 % POTASSIUM-STAT [id number] 14:30:00 Test Item Value Reference Range Comments POTASSIUM (BEAKER) (test fpjt=440) 3.2 meq/L 3.6-5.5 GLUCOSE-STAT [id number] 14:30:00 Test Item Value Reference Range Comments GLUCOSE RANDOM (BEAKER) (test tcso=499) 294 mg/dL 70-110 HGB/HCT (H&H) - STAT [id number] 14:30:00 Test Item Value Reference Range Comments HEMOGLOBIN (BEAKER) (test qeqw=973) 10.8 g/dL 13.0-16.8 HEMATOCRIT (BEAKER) (test czvr=864) 32.0 % 40.0-50.0 SODIUM NA-STAT [id number] 14:29:00 Test Item Value Reference Range Comments SODIUM (BEAKER) (test elvs=028) 135 meq/L 135-148 PLATELET [id number] 14:12:00 Test Item Value Reference Range Comments PLATELET COUNT (BEAKER) (test ovsg=545) 242 K/CU MM 150-450 PROTHROMBIN [id number] 14:05:00 Test Item Value Reference Range Comments PROTIME (BEAKER) (test hfkh=120) 19.3 seconds 11.7-14.7 INR (BEAKER) (test nlyg=127) 1.6 <=5.9 RECOMMENDED COUMADIN/WARFARIN INR THERAPY RANGESSTANDARD DOSE: 2.0 - 3.0 Includes: PROPHYLAXIS forvenous thrombosis, systemic embolization; TREATMENT for venous thrombosis and/or pulmonary embolus.HIGH RISK: Target INR is 2.5-3.5 for patients with mechanical heart valves.[id number] 14:05:00 Test Item Value Reference Range Comments FIBRINOGEN LEVEL (BEAKER) (test psmd=605) 224 mg/dl 225-434 [id number] 14:05:00 Test Item Value Reference Range Comments PARTIAL THROMBOPLASTIN TIME (BEAKER) (test 32.5 seconds 22.5-36.0 rart=645) HGB/HCT (H&H) - STAT [id number] 13:54:00 Test Item Value Reference Range Comments HEMOGLOBIN (BEAKER) (test sofl=993) 10.3 g/dL 13.0-16.8 HEMATOCRIT (BEAKER) (test tbwg=959) 30.0 % 40.0-50.0 BLOOD GAS, [id number] 13:52:00 Test Item Value Reference Range Comments PH ARTERIAL (BEAKER) (test kubn=143) 7.32 7.35-7.45 PCO2 ARTERIAL (BEAKER) (test rcfs=101) 45 mmHg 35-45 PO2 ARTERIAL (BEAKER) (test xnjf=525) 101 mmHg 80-90 O2 SATURATION ARTERIAL (BEAKER) (test eyyw=818) 97.3 % 96.0-97.0 HCO3 ARTERIAL (BEAKER) (test xiwg=874) 23 mmol/L 21-29 BASE EXCESS ARTERIAL (BEAKER) (test xems=027) -3.7 mmol/L -2.0-3.0 PATIENT TEMPERATURE (BEAKER) (test xzyl=2861) 36.5 C FIO2 (BEAKER) (test ljru=8937) 100.0 % SODIUM NA-STAT [id number] 13:52:00 Test Item Value Reference Range Comments SODIUM (BEAKER) (test psdg=991) 134 meq/L 135-148 POTASSIUM-STAT [id number] 13:52:00 Test Item Value Reference Range Comments POTASSIUM (BEAKER) (test sjkr=957) 3.3 meq/L 3.6-5.5 GLUCOSE-STAT [id number] 13:52:00 Test Item Value Reference Range Comments GLUCOSE RANDOM (BEAKER) (test nzjy=234) 352 mg/dL 70-110 CALCIUM, [id number] 13:52:00 Test Item Value Reference Range Comments CALCIUM IONIZED (BEAKER) (test gehx=591) 1.10 mmol/L 1.12-1.27 PH, BLOOD (BEAKER) (test fous=4571) 7.31 POTASSIUM-STAT [id number] 13:19:00 Test Item Value Reference Range Comments POTASSIUM (BEAKER) (test sxmj=921) 4.5 meq/L 3.6-5.5 BLOOD GAS, [id number] 13:19:00 Test Item Value Reference Range Comments PH ARTERIAL (BEAKER) (test apgb=870) 7.32 7.35-7.45 PCO2 ARTERIAL (BEAKER) (test bsot=431) 45 mmHg 35-45 PO2 ARTERIAL (BEAKER) (test atxe=907) 60 mmHg 80-90 O2 SATURATION ARTERIAL (BEAKER) (test zwyo=348) 89.8 % 96.0-97.0 HCO3 ARTERIAL (BEAKER) (test quuk=777) 23 mmol/L 21-29 BASE EXCESS ARTERIAL (BEAKER) (test zfac=717) -3.2 mmol/L -2.0-3.0 PATIENT TEMPERATURE (BEAKER) (test wluc=7346) 36.6 C FIO2 (BEAKER) (test lmol=8673) 100.0 % GLUCOSE-STAT [id number] 13:19:00 Test Item Value Reference Range Comments GLUCOSE RANDOM (BEAKER) (test dwiz=717) 349 mg/dL 70-110 SODIUM NA-STAT [id number] 13:19:00 Test Item Value Reference Range Comments SODIUM (BEAKER) (test abse=131) 131 meq/L 135-148 HGB/HCT (H&H) - STAT [id number] 13:19:00 Test Item Value Reference Range Comments HEMOGLOBIN (BEAKER) (test eopl=493) 8.6 g/dL 13.0-16.8 HEMATOCRIT (BEAKER) (test sbnk=310) 25.0 % 40.0-50.0 BLOOD GAS, [id number] 12:47:00 Test Item Value Reference Range Comments PH ARTERIAL (BEAKER) (test ymdi=996) 7.38 7.35-7.45 PCO2 ARTERIAL (BEAKER) (test stlm=808) 43 mmHg 35-45 PO2 ARTERIAL (BEAKER) (test vwlz=379) 293 mmHg 80-90 O2 SATURATION ARTERIAL (BEAKER) (test chvt=188) 99.7 % 96.0-97.0 HCO3 ARTERIAL (BEAKER) (test lhjw=599) 25 mmol/L 21-29 BASE EXCESS ARTERIAL (BEAKER) (test iote=755) -0.6 mmol/L -2.0-3.0 PATIENT TEMPERATURE (BEAKER) (test tznx=9995) 35.0 C FIO2 (BEAKER) (test xtsf=1385) 90.0 % GLUCOSE-STAT [id number] 12:47:00 Test Item Value Reference Range Comments GLUCOSE RANDOM (BEAKER) (test fisb=453) 386 mg/dL 70-110 SODIUM NA-STAT [id number] 12:47:00 Test Item Value Reference Range Comments SODIUM (BEAKER) (test zldo=700) 129 meq/L 135-148 POTASSIUM-STAT [id number] 12:47:00 Test Item Value Reference Range Comments POTASSIUM (BEAKER) (test ihsq=774) 5.6 meq/L 3.6-5.5 HGB/HCT (H&H) - STAT [id number] 12:47:00 Test Item Value Reference Range Comments HEMOGLOBIN (BEAKER) (test zedn=706) 9.5 g/dL 13.0-16.8 HEMATOCRIT (BEAKER) (test dmsc=053) 28.0 % 40.0-50.0 POTASSIUM-STAT [id number] 12:13:00 Test Item Value Reference Range Comments POTASSIUM (BEAKER) (test xzhr=338) 7.0 meq/L 3.6-5.5 SPECIMEN NOT HEMOLYZED BLOOD GAS, [id number] 12:12:00 Test Item Value Reference Range Comments PH ARTERIAL (BEAKER) (test frkn=926) 7.39 7.35-7.45 PCO2 ARTERIAL (BEAKER) (test kpsp=857) 39 mmHg 35-45 PO2 ARTERIAL (BEAKER) (test zhsl=183) 228 mmHg 80-90 O2 SATURATION ARTERIAL (BEAKER) (test zydc=373) 99.5 % 96.0-97.0 HCO3 ARTERIAL (BEAKER) (test lfit=889) 24 mmol/L 21-29 BASE EXCESS ARTERIAL (BEAKER) (test qtey=553) -2.3 mmol/L -2.0-3.0 PATIENT TEMPERATURE (BEAKER) (test jtur=1026) 33.8 C FIO2 (BEAKER) (test dcsb=6929) 85.0 % SODIUM NA-STAT [id number] 12:12:00 Test Item Value Reference Range Comments SODIUM (BEAKER) (test smim=244) 125 meq/L 135-148 GLUCOSE-STAT [id number] 12:12:00 Test Item Value Reference Range Comments GLUCOSE RANDOM (BEAKER) (test zahq=254) 395 mg/dL 70-110 HGB/HCT (H&H) - STAT [id number] 12:12:00 Test Item Value Reference Range Comments HEMOGLOBIN (BEAKER) (test hpvb=788) 10.3 g/dL 13.0-16.8 HEMATOCRIT (BEAKER) (test shac=034) 30.0 % 40.0-50.0 POTASSIUM-STAT [id number] 11:48:00 Test Item Value Reference Range Comments POTASSIUM (BEAKER) (test qfzc=246) 6.4 meq/L 3.6-5.5 SPECIMEN NOT HEMOLYZED BLOOD GAS, [id number] 11:44:00 Test Item Value Reference Range Comments PH ARTERIAL (BEAKER) (test tgdv=480) 7.39 7.35-7.45 PCO2 ARTERIAL (BEAKER) (test cldj=417) 39 mmHg 35-45 PO2 ARTERIAL (BEAKER) (test gxtc=668) 213 mmHg 80-90 O2 SATURATION ARTERIAL (BEAKER) (test nygl=272) 99.4 % 96.0-97.0 HCO3 ARTERIAL (BEAKER) (test rgrk=707) 24 mmol/L 21-29 BASE EXCESS ARTERIAL (BEAKER) (test uzaz=818) -2.0 mmol/L -2.0-3.0 PATIENT TEMPERATURE (BEAKER) (test qyej=0413) 32.8 C FIO2 (BEAKER) (test zozv=5843) 80.0 % SODIUM NA-STAT [id number] 11:44:00 Test Item Value Reference Range Comments SODIUM (BEAKER) (test amrc=802) 126 meq/L 135-148 GLUCOSE-STAT [id number] 11:44:00 Test Item Value Reference Range Comments GLUCOSE RANDOM (BEAKER) (test qqfx=323) 345 mg/dL 70-110 HGB/HCT (H&H) - STAT [id number] 11:44:00 Test Item Value Reference Range Comments HEMOGLOBIN (BEAKER) (test awbo=349) 10.1 g/dL 13.0-16.8 HEMATOCRIT (BEAKER) (test xfos=148) 30.0 % 40.0-50.0 SODIUM NA-STAT [id number] 11:15:00 Test Item Value Reference Range Comments SODIUM (BEAKER) (test 123 meq/L 135-148 Discordant SODIUM result odrm=548) Compared to previous result, Clinical correlation required. BLOOD GAS, [id number] 11:14:00 Test Item Value Reference Range Comments PH ARTERIAL (BEAKER) (test jtrj=898) 7.42 7.35-7.45 PCO2 ARTERIAL (BEAKER) (test rsod=509) 32 mmHg 35-45 PO2 ARTERIAL (BEAKER) (test oxvt=377) 229 mmHg 80-90 O2 SATURATION ARTERIAL (BEAKER) (test xwbz=760) 99.5 % 96.0-97.0 HCO3 ARTERIAL (BEAKER) (test umct=297) 21 mmol/L 21-29 BASE EXCESS ARTERIAL (BEAKER) (test lrsg=859) -4.2 mmol/L -2.0-3.0 PATIENT TEMPERATURE (BEAKER) (test qdxq=9171) 31.5 C FIO2 (BEAKER) (test nnsv=9768) 70.0 % GLUCOSE-STAT [id number] 11:14:00 Test Item Value Reference Range Comments GLUCOSE RANDOM (BEAKER) (test xgnc=935) 320 mg/dL 70-110 HGB/HCT (H&H) - STAT [id number] 11:14:00 Test Item Value Reference Range Comments HEMOGLOBIN (BEAKER) (test 9.4 g/dL 13.0-16.8 Discordant HGB result Compared smfe=874) to previous result, Clinical correlation required. HEMATOCRIT (BEAKER) (test 28.0 % 40.0-50.0 vcfm=766) POTASSIUM-STAT [id number] 11:13:00 Test Item Value Reference Range Comments POTASSIUM (BEAKER) (test migd=123) 5.3 meq/L 3.6-5.5 SODIUM NA-STAT [id number] 08:35:00 Test Item Value Reference Range Comments SODIUM (BEAKER) (test qgpk=242) 136 meq/L 135-148 POTASSIUM-STAT [id number] 08:35:00 Test Item Value Reference Range Comments POTASSIUM (BEAKER) (test xnaj=212) 3.8 meq/L 3.6-5.5 HGB/HCT (H&H) - STAT [id number] 08:35:00 Test Item Value Reference Range Comments HEMOGLOBIN (BEAKER) (test tlus=470) 13.9 g/dL 13.0-16.8 HEMATOCRIT (BEAKER) (test drjz=240) 41.0 % 40.0-50.0 BLOOD GAS, [id number] 08:35:00 Test Item Value Reference Range Comments PH ARTERIAL (BEAKER) (test mwyi=054) 7.55 7.35-7.45 PCO2 ARTERIAL (BEAKER) (test fvls=390) 30 mmHg 35-45 PO2 ARTERIAL (BEAKER) (test prpl=537) 251 mmHg 80-90 O2 SATURATION ARTERIAL (BEAKER) (test mmcf=668) 99.7 % 96.0-97.0 HCO3 ARTERIAL (BEAKER) (test dagr=462) 26 mmol/L 21-29 BASE EXCESS ARTERIAL (BEAKER) (test mvmk=456) 3.1 mmol/L -2.0-3.0 PATIENT TEMPERATURE (BEAKER) (test gocg=1856) 34.2 C FIO2 (BEAKER) (test jypg=6355) 100.0 % GLUCOSE-STAT [id number] 08:35:00 Test Item Value Reference Range Comments GLUCOSE RANDOM (BEAKER) (test qndn=018) 146 mg/dL 70-110 [id number] 06:03:00 Test Item Value Reference Range Comments PHOSPHORUS (BEAKER) (test bjtv=191) 2.8 mg/dL 2.3-4.7 [id number] 06:03:00 Test Item Value Reference Range Comments MAGNESIUM (BEAKER) (test xfxo=793) 2.5 mg/dL 1.6-2.6 BASIC METABOLIC [id number] 06:03:00 Test Item Value Reference Range Comments SODIUM (BEAKER) (test 137 meq/L 136-145 mfcv=713) POTASSIUM (BEAKER) (test 4.0 meq/L 3.5-5.1 zcup=123) CHLORIDE (BEAKER) (test 101 meq/L 98-107 wzjo=269) CO2 (BEAKER) (test 27 meq/L 22-29 yyhw=026) BLOOD UREA NITROGEN 16 mg/dL 7-21 (BEAKER) (test cyse=083) CREATININE (BEAKER) (test 1.10 mg/dL 0.57-1.25 harn=791) GLUCOSE RANDOM (BEAKER) 140 mg/dL 70-105 (test qyil=419) CALCIUM (BEAKER) (test 10.0 mg/dL 8.4-10.2 pold=983) EGFR (BEAKER) (test 70 mL/min/1.73 sq m ESTIMATED GFR IS NOT zane=8216) ACCURATE CREATININE CLEARANCE IN PREDICTING GLOMERULAR FILTRATION RATE. ESTIMATED GFR IS NOT APPLICABLE FOR DIALYSIS PATIENTS. CBC W/PLT COUNT & AUTO [id number] 05:44:00 Test Item Value Reference Range Comments WHITE BLOOD CELL COUNT (BEAKER) (test idaf=200) 6.8 K/ L 3.5-10.5 RED BLOOD CELL COUNT (BEAKER) (test inbv=271) 4.99 M/ L 4.63-6.08 HEMOGLOBIN (BEAKER) (test fius=531) 14.2 GM/DL 13.7-17.5 HEMATOCRIT (BEAKER) (test gwbi=168) 42.2 % 40.1-51.0 MEAN CORPUSCULAR VOLUME (BEAKER) (test bthu=303) 84.6 fL 79.0-92.2 MEAN CORPUSCULAR HEMOGLOBIN (BEAKER) (test 28.5 pg 25.7-32.2 jyyv=566) MEAN CORPUSCULAR HEMOGLOBIN CONC (BEAKER) (test 33.6 GM/DL 32.3-36.5 bzln=439) RED CELL DISTRIBUTION WIDTH (BEAKER) (test 13.8 % 11.6-14.4 iehg=057) PLATELET COUNT (BEAKER) (test aybf=981) 306 K/CU MM 150-450 MEAN PLATELET VOLUME (BEAKER) (test nbmd=669) 11.3 fL 9.4-12.4 NUCLEATED RED BLOOD CELLS (BEAKER) (test 0 /100 WBC 0-0 mwtk=801) NEUTROPHILS RELATIVE PERCENT (BEAKER) (test 57 % vvwf=633) LYMPHOCYTES RELATIVE PERCENT (BEAKER) (test 30 % hoje=431) MONOCYTES RELATIVE PERCENT (BEAKER) (test 8 % mljx=002) EOSINOPHILS RELATIVE PERCENT (BEAKER) (test 4 % ljvo=994) BASOPHILS RELATIVE PERCENT (BEAKER) (test 1 % tbwv=096) NEUTROPHILS ABSOLUTE COUNT (BEAKER) (test 3.85 K/ L 1.78-5.38 qzjn=236) LYMPHOCYTES ABSOLUTE COUNT (BEAKER) (test 2.05 K/ L 1.32-3.57 nypu=973) MONOCYTES ABSOLUTE COUNT (BEAKER) (test 0.53 K/ L 0.30-0.82 gzdp=093) EOSINOPHILS ABSOLUTE COUNT (BEAKER) (test 0.27 K/ L 0.04-0.54 irtz=077) BASOPHILS ABSOLUTE COUNT (BEAKER) (test 0.06 K/ L 0.01-0.08 jusn=066) IMMATURE GRANULOCYTES-RELATIVE PERCENT (BEAKER) 0 % 0-1 (test mtpe=2066) POCT-GLUCOSE [id number] 21:00:00 Test Item Value Reference Range Comments POC-GLUCOSE METER (BEAKER) 176 mg/dL 70-110 TESTED AT [address] (test akgc=9100) [place] [address] RAD, CHEST, 2 [id number] 20:30:00Reason for exam:->pre opFINAL REPORT Chest 2 views 10/27/2017 8:29 PM CLINICAL HISTORY: Preoperative evaluation COMPARISON: 10/12/2014 FINDINGS: The lungs are clear, save for bibasilar linear atelectasis. Cardiomediastinal contours are within normal limits. The central pulmonary vasculature is not engorged. The visualized skeleton is intact. IMPRESSION: No acute radiographic abnormalities. Signed: Burak Lemus Verified Date/Time: 10/27/2017 20:30:07 Reading Location: [facility] Radiology Reading Room POCT-GLUCOSE [id number] 17 :35:00 Test Item Value Reference Range Comments POC-GLUCOSE METER (BEAKER) 178 mg/dL 70-110 TESTED AT [address] (test ysjh=6897) [place] [address] HEPATITIS B SURFACE [id number] 15:53:00 Test Item Value Reference Range Comments HEPATITIS B SURFACE ANTIBODY (BEAKER) (test < mIU/mL <8.0 ktmv=511) HEPATITIS B SURFACE [id number] 15:50:00 Test Item Value Reference Range Comments HEPATITIS B SURFACE ANTIGEN (2) (BEAKER) (test Nonreactive Nonreactive quxn=6329) HEPATITIS C [id number] 15:50:00 Test Item Value Reference Range Comments HEPATITIS C ANTIBODY (BEAKER) (test oewj=509) Nonreactive Nonreactive HEPATITIS B CORE ANTIBODY, [id number] 15:50:00 Test Item Value Reference Range Comments HEPATITIS B CORE TOTAL ANTIBODY (BEAKER) (test Nonreactive Nonreactive xywd=499) HIV-1 ANTIGEN WITH HIV-1/2 [id number] 15:50:00 Test Item Value Reference Range Comments HIV-1 ANTIGEN WITH HIV 1\T\2 ANTIBODY (2) Nonreactive Nonreactive (BEAKER) (test mtlt=2780) [id number] 15:44:00 Test Item Value Reference Range Comments COL/EPI CLOSURE TIME (BEAKER) (test bbsf=2438) 193 Seconds 78-191 COL/ADP CLOSURE TIME (BEAKER) (test detn=7704) 158 Seconds 43-122 PLATELET COUNT AGG (BEAKER) (test gvyj=4339) 315 K/CU MM 150-450 for patients on aspirin in past 2 weeksPOCT-GLUCOSE [id number] 11:59:00 Test Item Value Reference Range Comments POC-GLUCOSE METER (BEAKER) 162 mg/dL 70-110 TESTED AT [address] (test xoti=2004) [facility] [address] POCT-GLUCOSE [id number] 07:08:00 Test Item Value Reference Range Comments POC-GLUCOSE METER (BEAKER) 248 mg/dL 70-110 TESTED AT [address] (test xxpl=0475) [facility] [address] THROMBOELASTOGRAPH (TEG)2017-10-27 06:16:00 Test Item Value Reference Range Comments TEG ACTIVATED CLOTTING TIME (BEAKER) (test 6.3 minutes 4.0-7.0 hqgr=1386) TEG FIBRINOGEN ACTIVITY (BEAKER) (test 73.1 degrees 61.0-73.0 mqhr=4709) TEG PLT. AGGREGATION (BEAKER) (test xooh=7264) 68.2 MM 55.0-65.0 TEG FIBRINOLYSIS (BEAKER) (test zkto=5736) 25.0 % 0.0-5.0 TGH ACTIVATED CLOTTING TIME (BEAKER) (test 6.7 minutes 4.0-7.0 fiuw=9269) TGH FIBRINOGEN ACTIVITY (BEAKER) (test 71.5 degrees 61.0-73.0 xklo=9289) T[facility] PLT. AGGREGATION (BEAKER) (test xfee=9292) 64.8 MM 55.0-65.0 [facility]GH FIBRINOLYSIS (BEAKER) (test hcbm=1498) 0.0 % 0.0-5.0 HEPATIC FUNCTION [id number] 05:46:00 Test Item Value Reference Range Comments TOTAL PROTEIN (BEAKER) (test 7.4 gm/dL 6.0-8.3 Specimen slightly hemolyzed ndam=702) ALBUMIN (BEAKER) (test 4.1 g/dL 3.5-5.0 Specimen slightly hemolyzed ddfw=7067) BILIRUBIN TOTAL (BEAKER) (test 0.8 mg/dL 0.2-1.2 Specimen slightly hemolyzed prjm=333) BILIRUBIN DIRECT (BEAKER) (test 0.1 mg/dL 0.1-0.5 Specimen slightly hemolyzed dcol=153) ALKALINE PHOSPHATASE (BEAKER) 96 U/L 40-150 (test dntm=590) AST (SGOT) (BEAKER) (test 39 U/L 5-34 Specimen slightly hemolyzed blzi=640) ALT (SGPT) (BEAKER) (test 69 U/L 6-55 Specimen slightly hemolyzed xseq=002) Specimen moderately lipemicPROTHROMBIN [id number] 05:40:00 Test Item Value Reference Range Comments PROTIME (BEAKER) (test floz=704) 13.4 seconds 11.7-14.7 INR (BEAKER) (test fdox=907) 1.0 <=5.9 RECOMMENDED COUMADIN/WARFARIN INR THERAPY RANGESSTANDARD DOSE: 2.0 - 3.0 Includes: PROPHYLAXIS forvenous thrombosis, systemic embolization; TREATMENT for venous thrombosis and/or pulmonary embolus.HIGH RISK: Target INR is 2.5-3.5 for patients with mechanical heart valves.CBC W/PLT COUNT & AUTO [id number] 05:13:00 Test Item Value Reference Range Comments WHITE BLOOD CELL COUNT (BEAKER) (test stwd=488) 7.0 K/ L 3.5-10.5 RED BLOOD CELL COUNT (BEAKER) (test ejtq=723) 4.78 M/ L 4.63-6.08 HEMOGLOBIN (BEAKER) (test mnpj=926) 13.8 GM/DL 13.7-17.5 HEMATOCRIT (BEAKER) (test klkx=880) 39.5 % 40.1-51.0 MEAN CORPUSCULAR VOLUME (BEAKER) (test ooov=501) 82.6 fL 79.0-92.2 MEAN CORPUSCULAR HEMOGLOBIN (BEAKER) (test 28.9 pg 25.7-32.2 rewq=405) MEAN CORPUSCULAR HEMOGLOBIN CONC (BEAKER) (test 34.9 GM/DL 32.3-36.5 ibcp=637) RED CELL DISTRIBUTION WIDTH (BEAKER) (test 13.6 % 11.6-14.4 hvci=253) PLATELET COUNT (BEAKER) (test sijk=571) 297 K/CU MM 150-450 MEAN PLATELET VOLUME (BEAKER) (test wdqu=738) 11.3 fL 9.4-12.4 NUCLEATED RED BLOOD CELLS (BEAKER) (test 0 /100 WBC 0-0 zhnv=157) NEUTROPHILS RELATIVE PERCENT (BEAKER) (test 61 % cywj=232) LYMPHOCYTES RELATIVE PERCENT (BEAKER) (test 25 % ngrh=771) MONOCYTES RELATIVE PERCENT (BEAKER) (test 8 % vblk=926) EOSINOPHILS RELATIVE PERCENT (BEAKER) (test 4 % znja=933) BASOPHILS RELATIVE PERCENT (BEAKER) (test 1 % ugaa=719) NEUTROPHILS ABSOLUTE COUNT (BEAKER) (test 4.30 K/ L 1.78-5.38 hexz=759) LYMPHOCYTES ABSOLUTE COUNT (BEAKER) (test 1.75 K/ L 1.32-3.57 wqny=962) MONOCYTES ABSOLUTE COUNT (BEAKER) (test 0.56 K/ L 0.30-0.82 ffgr=928) EOSINOPHILS ABSOLUTE COUNT (BEAKER) (test 0.29 K/ L 0.04-0.54 xggp=163) BASOPHILS ABSOLUTE COUNT (BEAKER) (test 0.06 K/ L 0.01-0.08 cvez=340) IMMATURE GRANULOCYTES-RELATIVE PERCENT (BEAKER) 1 % 0-1 (test uwoq=6565) POCT-GLUCOSE [id number] 21:40:00 Test Item Value Reference Range Comments POC-GLUCOSE METER (BEAKER) 162 mg/dL 70-110 TESTED AT [address] (test atdh=0374) [facility] [address] POCT-GLUCOSE [id number] 17:09:00 Test Item Value Reference Range Comments POC-GLUCOSE METER (BEAKER) 202 mg/dL 70-110 TESTED AT [address] (test sivh=6962) [facility] [address] POCT-GLUCOSE [id number] 12:00:00 Test Item Value Reference Range Comments POC-GLUCOSE METER (BEAKER) 191 mg/dL 70-110 TESTED AT [address] (test pico=4605) [facility] [address] POCT-GLUCOSE [id number] 07:50:00 Test Item Value Reference Range Comments POC-GLUCOSE METER (BEAKER) 196 mg/dL 70-110 TESTED AT [address] (test gxcw=9533) [facility] [address] [id number] 06:28:00 Test Item Value Reference Range Comments MAGNESIUM (BEAKER) (test 2.1 mg/dL 1.6-2.6 Specimen slightly hemolyzed mivj=025) [id number] 06:28:00 Test Item Value Reference Range Comments PHOSPHORUS (BEAKER) (test 2.7 mg/dL 2.3-4.7 Specimen slightly hemolyzed epaq=975) BASIC METABOLIC [id number] 06:28:00 Test Item Value Reference Range Comments SODIUM (BEAKER) (test 135 meq/L 136-145 ynqp=429) POTASSIUM (BEAKER) (test 4.3 meq/L 3.5-5.1 Specimen slightly xevf=754) hemolyzed CHLORIDE (BEAKER) (test 101 meq/L 98-107 jkia=763) CO2 (BEAKER) (test 24 meq/L 22-29 vxkh=207) BLOOD UREA NITROGEN 17 mg/dL 7-21 (BEAKER) (test pjcn=864) CREATININE (BEAKER) (test 1.00 mg/dL 0.57-1.25 Specimen slightly dfne=209) hemolyzed GLUCOSE RANDOM (BEAKER) 250 mg/dL 70-105 (test tgol=052) CALCIUM (BEAKER) (test 9.5 mg/dL 8.4-10.2 esvs=098) EGFR (BEAKER) (test 78 mL/min/1.73 sq m ESTIMATED GFR IS NOT hjsh=2624) ACCURATE CREATININE CLEARANCE IN PREDICTING GLOMERULAR FILTRATION RATE. ESTIMATED GFR IS NOT APPLICABLE FOR DIALYSIS PATIENTS. POCT-GLUCOSE [id number] 21:41:00 Test Item Value Reference Range Comments POC-GLUCOSE METER (BEAKER) 209 mg/dL 70-110 TESTED AT [address] (test zazl=9354) [place] [id number] POCT-GLUCOSE [id number] 17:08:00 Test Item Value Reference Range Comments POC-GLUCOSE METER (BEAKER) 175 mg/dL 70-110 TESTED AT [address] (test fecj=4222) [place] [id number] POCT-GLUCOSE [id number] 11:59:00 Test Item Value Reference Range Comments POC-GLUCOSE METER (BEAKER) 145 mg/dL 70-110 TESTED AT [address] (test indn=1203) [place] [id number] POCT-GLUCOSE [id number] 08:20:00 Test Item Value Reference Range Comments POC-GLUCOSE METER (BEAKER) 167 mg/dL 70-110 TESTED AT [address] (test ehjw=9602) [facility] [address] POCT-GLUCOSE [id number] 21:47:00 Test Item Value Reference Range Comments POC-GLUCOSE METER (BEAKER) 237 mg/dL 70-110 TESTED AT [address] (test osag=6705) [facility] [address] POCT-GLUCOSE [id number] 18:30:00 Test Item Value Reference Range Comments POC-GLUCOSE METER (BEAKER) 186 mg/dL 70-110 TESTED AT [address] (test dmyi=5149) [place] [address] POCT-GLUCOSE [id number] 11:46:00 Test Item Value Reference Range Comments POC-GLUCOSE METER (BEAKER) 192 mg/dL 70-110 TESTED AT [address] (test hdru=2440) [place] [address] POCT-GLUCOSE [id number] 07:52:00 Test Item Value Reference Range Comments POC-GLUCOSE METER (BEAKER) 154 mg/dL 70-110 TESTED AT [facility] [address] (test bqvg=2758) [facility] [address] [id number] 06:10:00 Test Item Value Reference Range Comments PHOSPHORUS (BEAKER) (test osoh=641) 4.2 mg/dL 2.3-4.7 [id number] 06:10:00 Test Item Value Reference Range Comments MAGNESIUM (BEAKER) (test ntbn=754) 2.1 mg/dL 1.6-2.6 BASIC METABOLIC [id number] 06:10:00 Test Item Value Reference Range Comments SODIUM (BEAKER) (test 136 meq/L 136-145 xkvd=653) POTASSIUM (BEAKER) (test 4.4 meq/L 3.5-5.1 ddfv=001) CHLORIDE (BEAKER) (test 103 meq/L 98-107 voax=560) CO2 (BEAKER) (test 24 meq/L 22-29 kngs=450) BLOOD UREA NITROGEN 15 mg/dL 7-21 (BEAKER) (test ptcq=133) CREATININE (BEAKER) (test 0.96 mg/dL 0.57-1.25 hjtp=982) GLUCOSE RANDOM (BEAKER) 165 mg/dL 70-105 (test rtww=881) CALCIUM (BEAKER) (test 9.0 mg/dL 8.4-10.2 lrix=592) EGFR (BEAKER) (test 82 mL/min/1.73 sq m ESTIMATED GFR IS NOT fqzd=6086) ACCURATE CREATININE CLEARANCE IN PREDICTING GLOMERULAR FILTRATION RATE. ESTIMATED GFR IS NOT APPLICABLE FOR DIALYSIS PATIENTS. LIPID [id number] 06:10:00 Test Item Value Reference Range Comments TRIGLYCERIDES (BEAKER) (test zxmu=357) 794 mg/dL CHOLESTEROL (BEAKER) (test ikqb=325) 232 mg/dL HDL CHOLESTEROL (BEAKER) (test ukcs=535) 26 mg/dL Calculated LDL not valid if triglyceride >400 mg/dLTriglyceride Reference Range: Low Risk <150 Borderline 150-199 High Risk 200-499 Very High Risk >=500Cholesterol Reference Range: Low Risk <200 Borderline 200-239 High Risk >240HDL Cholesterol Reference Range: Low Risk >=60 High Risk <40LDL Cholesterol ReferenceRange: Optimal <100 Near Optimal 100-129 Borderline 130-159 High 160-189 Very High >=190CBC W/PLT COUNT & amp; AUTO [id number] 05:22:00 Test Item Value Reference Range Comments WHITE BLOOD CELL COUNT (BEAKER) (test whpu=025) 7.7 K/ L 3.5-10.5 RED BLOOD CELL COUNT (BEAKER) (test wsiy=006) 5.02 M/ L 4.63-6.08 HEMOGLOBIN (BEAKER) (test texz=287) 14.0 GM/DL 13.7-17.5 HEMATOCRIT (BEAKER) (test iytz=606) 43.2 % 40.1-51.0 MEAN CORPUSCULAR VOLUME (BEAKER) (test dsor=918) 86.1 fL 79.0-92.2 MEAN CORPUSCULAR HEMOGLOBIN (BEAKER) (test 27.9 pg 25.7-32.2 hwyt=833) MEAN CORPUSCULAR HEMOGLOBIN CONC (BEAKER) (test 32.4 GM/DL 32.3-36.5 hegw=468) RED CELL DISTRIBUTION WIDTH (BEAKER) (test 13.9 % 11.6-14.4 bpox=615) PLATELET COUNT (BEAKER) (test xskz=081) 285 K/CU MM 150-450 MEAN PLATELET VOLUME (BEAKER) (test acbj=416) 11.5 fL 9.4-12.4 NUCLEATED RED BLOOD CELLS (BEAKER) (test 0 /100 WBC 0-0 iyog=497) NEUTROPHILS RELATIVE PERCENT (BEAKER) (test 65 % tovl=213) LYMPHOCYTES RELATIVE PERCENT (BEAKER) (test 23 % pviq=260) MONOCYTES RELATIVE PERCENT (BEAKER) (test 7 % gbhx=003) EOSINOPHILS RELATIVE PERCENT (BEAKER) (test 3 % vgby=254) BASOPHILS RELATIVE PERCENT (BEAKER) (test 1 % eavv=743) NEUTROPHILS ABSOLUTE COUNT (BEAKER) (test 4.99 K/ L 1.78-5.38 fjou=939) LYMPHOCYTES ABSOLUTE COUNT (BEAKER) (test 1.78 K/ L 1.32-3.57 xruf=105) MONOCYTES ABSOLUTE COUNT (BEAKER) (test 0.56 K/ L 0.30-0.82 biac=106) EOSINOPHILS ABSOLUTE COUNT (BEAKER) (test 0.22 K/ L 0.04-0.54 tlfw=999) BASOPHILS ABSOLUTE COUNT (BEAKER) (test 0.10 K/ L 0.01-0.08 meyy=971) IMMATURE GRANULOCYTES-RELATIVE PERCENT (BEAKER) 1 % 0-1 (test ouqp=9599) POCT-GLUCOSE [id number] 20:54:00 Test Item Value Reference Range Comments POC-GLUCOSE METER (BEAKER) 331 mg/dL 70-110 Patient on insulin Drip/TESTED (test nodi=0072) AT [place] [address] POCT-GLUCOSE [id number] 17:09:00 Test Item Value Reference Range Comments POC-GLUCOSE METER (BEAKER) 137 mg/dL 70-110 TESTED AT [address] (test hptt=2198) [place] [address] CREATINE KINASE (CK), TOTAL AND [id number] 15:08:00 Test Item Value Reference Range Comments CREATINE KINASE TOTAL (BEAKER) (test nxjk=291) 32 U/L 29-200 CREATINE KINASE-MB (BEAKER) (test zfiz=657) 0.9 ng/mL 0.0-6.6 CREATINE KINASE-MB INDEX (BEAKER) (test ddxe=299) 2.8 % CK-MB Reference Range:<6.7 Normal6.7-10.0 Borderline>10.0 AbnormalTROPONIN [id number] 15:08:00 Test Item Value Reference Range Comments TROPONIN I (BEAKER) (test wehi=840) 0.04 ng/mL 0.00-0.03 Troponin I (TnI) levels must be interpreted in the context of the presenting symptoms and the clinical findings. Elevated TnI levels indicate myocardial damage, but are not specific for ischemic heart disease. Elevated TnI levels are seen in patients with other cardiac conditions (including myocarditis and congestive heart failure), and slight TnI elevations occur in patients with other conditions, including sepsis, renal failure, acidosis, acute neurological disease, and persistent tachyarrhythmia.POCT-GLUCOSE [id number] 12:32:00 Test Item Value Reference Range Comments POC-GLUCOSE METER (BEAKER) 197 mg/dL 70-110 TESTED AT [address] (test svde=2933) [place] [address] TROPONIN [id number] 10:10:00 Test Item Value Reference Range Comments TROPONIN I (BEAKER) (test qzzz=448) 0.05 ng/mL 0.00-0.03 Troponin I (TnI) levels must be interpreted in the context of the presenting symptoms and the clinical findings. Elevated TnI levels indicate myocardial damage, but are not specific for ischemic heart disease. Elevated TnI levels are seen in patients with other cardiac conditions (including myocarditis and congestive heart failure), and slight TnI elevations occur in patients with other conditions, including sepsis, renal failure, acidosis, acute neurological disease, and persistent tachyarrhythmia.HEMOGLOBIN [id number] 10:08:00 Test Item Value Reference Range Comments HEMOGLOBIN A1C (VANESSAAKER) (test frbk=100) 9.1 % 4.3-6.1 CREATINE KINASE (CK)2017-10-23 10:04:00 Test Item Value Reference Range Comments CREATINE KINASE TOTAL (BEAKER) (test sabg=242) 36 U/L 29-200 POCT-GLUCOSE [id number] 08:19:00 Test Item Value Reference Range Comments POC-GLUCOSE METER (PikimalAKER) 184 mg/dL 70-110 TESTED AT [address] (test ftws=7408) [facility] [address] TROPONIN [id number] 05:43:00 Test Item Value Reference Range Comments TROPONIN I (BEAKER) (test ypma=983) 0.07 ng/mL 0.00-0.03 Troponin I (TnI) levels must be interpreted in the context of the presenting symptoms and the clinical findings. Elevated TnI levels indicate myocardial damage, but are not specific for ischemic heart disease. Elevated TnI levels are seen in patients with other cardiac conditions (including myocarditis and congestive heart failure), and slight TnI elevations occur in patients with other conditions, including sepsis, renal failure, acidosis, acute neurological disease, and persistent tachyarrhythmia.TROPONIN [id number] 05:36:00 Test Item Value Reference Range Comments TROPONIN I (BEAKER) (test enhq=401) 0.06 ng/mL 0.00-0.03 Troponin I (TnI) levels must be interpreted in the context of the presenting symptoms and the clinical findings. Elevated TnI levels indicate myocardial damage, but are not specific for ischemic heart disease. Elevated TnI levels are seen in patients with other cardiac conditions (including myocarditis and congestive heart failure), and slight TnI elevations occur in patients with other conditions, including sepsis, renal failure, acidosis, acute neurological disease, and persistent tachyarrhythmia.[id number] 05:35:00 Test Item Value Reference Range Comments PHOSPHORUS (BEAKER) (test mduw=886) 3.5 mg/dL 2.3-4.7 [id number] 05:35:00 Test Item Value Reference Range Comments MAGNESIUM (BEAKER) (test fiin=369) 2.1 mg/dL 1.6-2.6 BASIC METABOLIC [id number] 05:35:00 Test Item Value Reference Range Comments SODIUM (BEAKER) (test 138 meq/L 136-145 wxbf=372) POTASSIUM (BEAKER) (test 3.7 meq/L 3.5-5.1 ztbo=148) CHLORIDE (BEAKER) (test 104 meq/L 98-107 obaj=563) CO2 (BEAKER) (test 25 meq/L 22-29 fazo=784) BLOOD UREA NITROGEN 15 mg/dL 7-21 (BEAKER) (test gkpz=178) CREATININE (BEAKER) (test 1.05 mg/dL 0.57-1.25 fpzs=003) GLUCOSE RANDOM (BEAKER) 252 mg/dL 70-105 (test lipb=252) CALCIUM (BEAKER) (test 9.1 mg/dL 8.4-10.2 cbpr=423) EGFR (BEAKER) (test 74 mL/min/1.73 sq m ESTIMATED GFR IS NOT ntgv=9585) ACCURATE CREATININE CLEARANCE IN PREDICTING GLOMERULAR FILTRATION RATE. ESTIMATED GFR IS NOT APPLICABLE FOR DIALYSIS PATIENTS. BLOOD [id number] 07:27:00 Test Item Value Reference Range Comments Culture Observations (test code=COB1) NO GROWTH AFTER 5 DAYS BLOOD [id number] 07:27:00 Test Item Value Reference Range Comments Culture Observations (test code=COB1) NO GROWTH AFTER 5 DAYS GLUCOMETER GLUCOSE- LAB USE [id number] 16:23:00 Test Item Value Reference Range Comments GLUCOMETER (test code=GMG) 234 mg/dL 70-100 CLEANED METERMeter ID: [id number]: [id number] [facility] GLU[facility] GLUCOSE- LAB USE [id number] 11:57:00 Test Item Value Reference Range Comments GLUCOMETER (test code=GMG) 199 mg/dL 70-100 Meter ID: [id number]: 39[address] [facility] BASIC METABOLIC [id number] 06:19:00 Test Item Value Reference Range Comments GLUCOSE (test code=06D) 195 mg/dL 75-100 SODIUM (test code=01A) 134 mmol/L 136-145 POTASSIUM (test code=01B) 4.1 mmol/L 3.6-5.1 CHLORIDE (test code=04A) 102 mmol/L 98-107 CO2 (test code=02A) 22 mmol/L 22-32 ANION GAP (test code=ANG) 14.1 mmol/L BUN (test code=05D) 21 mg/dL 7-18 CREATININE (test code=03E) 0.9 mg/dL 0.7-1.3 BUN/CREA (test code=BCR) 22 12-20 CALCIUM (test code=09D) 8.3 mg/dL 8.3-9.5 CBC (INCLUDES AUTOMATED DIFFERENTIAL)2017-10-17 05:52:00 Test Item Value Reference Range Comments WBC (test code=WBC) 8.1 10\S\3/uL 4.5-11.0 RBC (test code=RBC) 4.69 10\S\6/uL 4.20-5.60 HGB (test code=HBG) 13.4 g/dL 14.0-18.0 HCT (test code=HCT) 39.2 % 35.0-46.0 MCV (test code=MCV) 83.6 fL 80.0-94.0 MCH (test code=MCH) 28.6 pg 27.0-31.0 MCHC (test code=MCHC) 34.2 g/dL 32.0-36.0 RDW (test code=RDW) 13.5 % 11.5-14.5 PLT (test code=PLT) 287 10\S\3/uL 130-400 MPV (test code=MPV) 11.6 fL 9.4-12.4 NEUTROP # (test code=NE#) 5.3 10\S\3/uL 2.0-8.0 LYMPH # (test code=LY#) 1.9 10\S\3/uL 1.2-4.0 MONOCYTE # (test code=MO#) 0.6 10\S\3/uL 0.0-1.1 EOSINOPH # (test code=EO#) 0.2 10\S\3/uL 0.0-0.7 BASOPHIL # (test code=BA#) 0.1 10\S\3/uL 0.0-0.3 IG # (test code=IG#) 0.06 10\S\3/uL 0.00-0.06 NRBC # (test code=NRBC#) 0.00 10\S\3/uL 0.00-0.01 NEUTROPH % (test code=NE%) 65.6 % 35.0-73.0 LYMPH % (test code=LY%) 23.7 % 20.0-55.0 MONO % (test code=MO%) 6.8 % 2.5-10.0 EOSINOPH % (test code=EO%) 2.5 % 0.0-5.0 BASOPHIL % (test code=BA%) 0.7 % 0.0-2.0 IG % (test code=IG%) 0.7 % 0.0-0.8 NRBC% (test code=NRBC%) 0.0 % 0.0-0.2 MANDIFF (test code=MDIFF) NO NO RBC MORPH (test code=RBCMOR) NORMAL GLUCOMETER GLUCOSE- LAB USE [id number] 05:13:00 Test Item Value Reference Range Comments GLUCOMETER (test code=GMG) 181 mg/dL 70-100 CLEANED METERMeter ID: [id number]: [address] [facility] [facility] GLUCOMETER GLUCOSE- LAB USE [id number] 20:40:00 Test Item Value Reference Range Comments GLUCOMETER (test code=GMG) 142 mg/dL 70-100 Meter ID: [id number]: [address] [place] GLUCOMETER GLUCOSE- LAB USE [id number] 16:25:00 Test Item Value Reference Range Comments GLUCOMETER (test code=GMG) 229 mg/dL 70-100 Meter ID: [id number]: 9287 [facility] GLUCOMETER GLUCOSE- LAB USE [id number] 06:39:00 Test Item Value Reference Range Comments GLUCOMETER (test code=GMG) 165 mg/dL 70-100 Meter ID: [id number]: 9130 JOE[facility] BASIC METABOLIC [id number] 05:46:00 Test Item Value Reference Range Comments GLUCOSE (test code=06D) 169 mg/dL 75-100 SODIUM (test code=01A) 137 mmol/L 136-145 POTASSIUM (test code=01B) 4.3 mmol/L 3.6-5.1 CHLORIDE (test code=04A) 103 mmol/L 98-107 CO2 (test code=02A) 27 mmol/L 22-32 ANION GAP (test code=ANG) 11.3 mmol/L BUN (test code=05D) 24 mg/dL 7-18 CREATININE (test code=03E) 1.0 mg/dL 0.7-1.3 BUN/CREA (test code=BCR) 23 12-20 CALCIUM (test code=09D) 8.5 mg/dL 8.3-9.5 CBC (INCLUDES AUTOMATED DIFFERENTIAL)2017-10-16 05:34:00 Test Item Value Reference Range Comments WBC (test code=WBC) 8.8 10\S\3/uL 4.5-11.0 RBC (test code=RBC) 4.55 10\S\6/uL 4.20-5.60 HGB (test code=HBG) 13.1 g/dL 14.0-18.0 HCT (test code=HCT) 38.5 % 35.0-46.0 MCV (test code=MCV) 84.6 fL 80.0-94.0 MCH (test code=MCH) 28.8 pg 27.0-31.0 MCHC (test code=MCHC) 34.0 g/dL 32.0-36.0 RDW (test code=RDW) 13.7 % 11.5-14.5 PLT (test code=PLT) 258 10\S\3/uL 130-400 MPV (test code=MPV) 11.5 fL 9.4-12.4 NEUTROP # (test code=NE#) 5.7 10\S\3/uL 2.0-8.0 LYMPH # (test code=LY#) 2.2 10\S\3/uL 1.2-4.0 MONOCYTE # (test code=MO#) 0.7 10\S\3/uL 0.0-1.1 EOSINOPH # (test code=EO#) 0.2 10\S\3/uL 0.0-0.7 BASOPHIL # (test code=BA#) 0.1 10\S\3/uL 0.0-0.3 IG # (test code=IG#) 0.03 10\S\3/uL 0.00-0.06 NRBC # (test code=NRBC#) 0.00 10\S\3/uL 0.00-0.01 NEUTROPH % (test code=NE%) 65.2 % 35.0-73.0 LYMPH % (test code=LY%) 24.5 % 20.0-55.0 MONO % (test code=MO%) 7.5 % 2.5-10.0 EOSINOPH % (test code=EO%) 1.8 % 0.0-5.0 BASOPHIL % (test code=BA%) 0.7 % 0.0-2.0 IG % (test code=IG%) 0.3 % 0.0-0.8 NRBC% (test code=NRBC%) 0.0 % 0.0-0.2 MANDIFF (test code=MDIFF) NO NO RBC MORPH (test code=RBCMOR) NORMAL GLUCOMETER GLUCOSE- LAB USE [id number] 22:00:00 Test Item Value Reference Range Comments GLUCOMETER (test code=GMG) 224 mg/dL 70-100 Meter ID: [id number]: 9130 JOE[facility]AM[facility] CARDIAC PROFILE 2017-10-15 11:04:00 Test Item Value Reference Range Comments TROPONIN I (test code=A84) 11.700 ng/mL 0.000-0.045 CKMB (test code=A49) 41.4 ng/mL <=3.6 CPK (test code=32A) 361 IU/L 39-308 CARDIAC PROFILE 2017-10-15 10:08:00 Test Item Value Reference Range Comments TROPONIN I (test code=A84) 13.100 ng/mL 0.000-0.045 CKMB (test code=A49) 45.8 ng/mL <=3.6 CPK (test code=32A) 389 IU/L 39-308 DRUGS OF ABUSE *WW*2017-10-15 04:40:00 Test Item Value Reference Range Comments DRUG SCRN (test code=HDOA) URINE DRUG SCREEN This is an unconfirmed screening result and should not be used for non-medical purposes CANNABINOD (test code=88C) Negative NEGATIVE AMPHETAMINE (test code=84A) Negative NEGATIVE BENZODIAZP (test code=86A) POSITIVE NEGATIVE BARBITURAT (test code=85A) Negative NEGATIVE OPIATES (test code=92B) POSITIVE NEGATIVE COCAINE (test code=87A) Negative NEGATIVE PHENCYCLID (test code=66A) Negative NEGATIVE METHADONE (test code=64A) Negative NEGATIVE DOAH (test code=DOAH) URINE DRUG SCREEN Cut-off values are as follows: ---- Cannabinoids 50 ng/mL Cocaine 300 ng/mL Amphetamines 1000 ng/mL Phencyclidine 25 ng/mL Benzodiazepines 200 ng.mL Methadone 300 ng/mL Barbiturates 200 ng/mL Opiates 2000 ng/mL URINALYSIS *WW*2017-10-15 04:13:00 Test Item Value Reference Range Comments COLOR (test code=COLU) YELLOW YELLOW CLARITY (test code=CLA) CLEAR CLEAR GLUCOSE UR (test code=UA GLUCOSE) NEGATIVE NEGATIVE BILI UR (test code=BILE) NEGATIVE NEGATIVE KETONES UR (test code=STEPHANIE) NEGATIVE NEGATIVE SP GRAVITY (test code=SPGR) 1.025 1.005-1.030 PH UR (test code=PH) 6.0 4.5-8.0 PROTEIN UR (test code=PU) NEGATIVE NEGATIVE UROBIL UR (test code=UROQ) 0.2 EU/dL 0.2-1.0 NITRITE UR (test code=NITRITE) NEGATIVE NEGATIVE BLOOD UR (test code=UA BLOOD) NEGATIVE NEGATIVE LEUK ES UR (test code=LEUK) NEGATIVE NEGATIVE AUAM (test code=WAUAM) NO NO D-DIMER *WW*2017-10-15 02:41:00 Test Item Value Reference Range Comments D-DIMER (test code=DDI) <200 ng/mL D-DU 0-234 D-DIMER COMMENT (test *Level to rule out DVT or PE: code=DDCOM) <235 ng/mL D-DU* BRAIN NATRIURETIC PROTEIN *WW*2017-10-15 01:58:00 Test Item Value Reference Range Comments proBNP (test code=PBNP) 20 pg/mL 0-125 PRO TIME AND PTT *WW*2017-10-15 01:52:00 Test Item Value Reference Range Comments PT (test code=TT) 10.4 s 9.8-13.6 INR (test code=INR) 0.9 INRH (test code=INRH) SUGGESTED THERAPEUTIC RANGE FOR INR: 2.5 - 3.5 For Patients with Prosthetic Valves or Patients with recurrent Thromboembolic Events 2.0 - 3.0 For Most Other Applications PTT (test code=PTT) 27.1 s 20.2-38.0 PTTH (test code=PTTH) To monitor the effectiveness of heparin, we offer the Anti-Xa (Heparin Assay). It can be used for either unfractionated or LMW Heparin. Order Code is ANTI-XA XR ABDOMEN 2 VIEWS W/PA CHEST *WW*2017-10-15 01:41:41XR ABDOMEN 2 VIEWS W/PA CHEST *WW*Location:[address] services provided 10/15/2017 1:41 AMIndication: [id number]: Abdominal painComparison:None availableFindings:The lungs are equally and symmetrically inflated. The trachea ismidline. The cardiac silhouette is normal in size. No acute bony abnormality.Nonobstructing bowel gas pattern. No free air is seen. No radiopaque calculi.No acute bony abnormality.Impression:No acute cardiopulmonary or abdominal abnormality noted.CARDIAC PROFILE 2017-09 01:20:00 Test Item Value Reference Range Comments TROPONIN I (test code=A84) 0.039 ng/mL 0.000-0.045 CKMB (test code=A49) <1.0 ng/mL <=3.6 CPK (test code=32A) 55 IU/L 39-308 AMYLASE AND LIPASE 2017-10-15 01:20:00 Test Item Value Reference Range Comments AMYLASE (test code=10A) 75 U/L 28-100 LIPASE (test code=60A) 203 IU/L 73-393 COMPREHENSIVE METABOLIC LEMOS 2017-10-15 01:20:00 Test Item Value Reference Range Comments GLUCOSE (test code=06D) 250 mg/dL 75-100 SODIUM (test code=01A) 139 mmol/L 136-145 POTASSIUM (test code=01B) 4.1 mmol/L 3.6-5.1 CHLORIDE (test code=04A) 103 mmol/L 98-107 CO2 (test code=02A) 28 mmol/L 22-32 ANION GAP (test code=ANG) 12.0 mmol/L BUN (test code=05D) 17 mg/dL 7-18 CREATININE (test code=03E) 1.2 mg/dL 0.7-1.3 BUN/CREA (test code=BCR) 15 12-20 CALCIUM (test code=09D) 8.1 mg/dL 8.3-9.5 BILI TOTAL (test code=11A) 0.3 mg/dL 0.2-1.0 PROTEIN (test code=07D) 6.6 g/dL 6.4-8.2 ALBUMIN (test code=08D) 3.5 g/dL 3.5-4.8 GLOBULIN (test code=GLB) 3.1 g/dL 1.5-3.8 ALB/GLOB (test code=AGRR) 1.1 1.0-2.6 ALK PHOS (test code=35A) 77 IU/L 42-121 AST (test code=30A) 16 IU/L <=42 ALT (test code=31A) 30 IU/L <=78 CBC (INCLUDES AUTOMATED DIFFERENTIAL)*[id number] 01:10:00 Test Item Value Reference Range Comments WBC (test code=WBC) 9.8 10\S\3/uL 4.5-11.0 RBC (test code=RBC) 5.09 10\S\6/uL 4.20-5.60 HGB (test code=HBG) 14.7 g/dL 14.0-18.0 HCT (test code=HCT) 42.3 % 35.0-46.0 MCV (test code=MCV) 83.1 fL 80.0-94.0 MCH (test code=MCH) 28.9 pg 27.0-31.0 MCHC (test code=MCHC) 34.8 g/dL 32.0-36.0 RDW (test code=RDW) 13.5 % 11.5-14.5 PLT (test code=PLT) 314 10\S\3/uL 130-400 MPV (test code=MPV) 11.2 fL 9.4-12.4 NEUTROP # (test code=NE#) 6.7 10\S\3/uL 2.0-8.0 LYMPH # (test code=LY#) 2.2 10\S\3/uL 1.2-4.0 MONOCYTE # (test code=MO#) 0.7 10\S\3/uL 0.0-1.1 EOSINOPH # (test code=EO#) 0.2 10\S\3/uL 0.0-0.7 BASOPHIL # (test code=BA#) 0.1 10\S\3/uL 0.0-0.3 IG # (test code=IG#) 0.03 10\S\3/uL 0.00-0.06 NRBC # (test code=NRBC#) 0.00 10\S\3/uL 0.00-0.01 NEUTROPH % (test code=NE%) 68.4 % 35.0-73.0 LYMPH % (test code=LY%) 22.0 % 20.0-55.0 MONO % (test code=MO%) 7.0 % 2.5-10.0 EOSINOPH % (test code=EO%) 1.7 % 0.0-5.0 BASOPHIL % (test code=BA%) 0.6 % 0.0-2.0 IG % (test code=IG%) 0.3 % 0.0-0.8 NRBC% (test code=NRBC%) 0.0 % 0.0-0.2 MANDIFF (test code=WMDIFF) NO NO RBC MORPH (test code=WRBCMOR) NORMAL
--- OUTSIDE RECORDS SUMMARY | 2019-07-06 03:06 | XMS REPORT | Continuity of Care Document ---
:1965 Author Organization [facility] Address [address] [place] [address] Phone Unavailable Care Team Providers Name Role Phone MAGGY LIMON DO Primary Care Physician Advance Directives Directive Response Recorded Date/Time Does the patient have an advance directive? No 03/06/18 5:18pm If yes, is advance directive on file with [facility]? No 03/06/18 5:18pm If not on file with [facility] will patient provide a copy? No 03/06/18 5:18pm Do you have a Directive to Physician? No 03/06/18 11:38am Do you have a Medical Power of Pathology Laboratory Director? No 03/06/18 11:38am Do you have an out of hospital Do Not Resuscitate Order? No 03/06/18 11:38am Do you have any special needs we should be aware of? No 03/06/18 11:38am Do you have a support person here with you today? Yes 03/06/18 11:38am Did patient receive Notice of Privacy Practices? Yes 03/06/18 11:38am Did patient receive patient rights and responsibilities? Yes 03/06/18 11:38am Problems Medical Problem Onset Date Status Dehydration Unknown Pneumonia Unknown Sepsis Unknown Medications Current Home Medications Medication Dose Units Route Directions Days Qty Instructions Start Date Albuterol 90 Mcg Inhalation Every 6 Hours 30 Days 03/07/18 Sulfate as needed for (Proventil Hfa) Wheezing 6.7 Gm Hfa.aer.ad Alprazolam 0.25 Mg Oral Twice A Day 30 03/07/18 (Xanax) 2 Mg Tablet Aspirin (Aspir 81 Mg Oral Daily 30 Days 03/07/18 81) 81 Mg Tablet.dr Atorvastatin 40 Mg Oral Bedtime 30 Days 03/07/18 Calcium (Lipitor) 40 Mg Tablet Clopidogrel 75 Mg Oral Daily 30 Tab 03/07/18 Bisulfate (Plavix) 75 Mg Tablet Escitalopram 10 Mg Oral Daily 30 Days 30 Tab 03/07/18 Oxalate (Lexapro) 10 Mg Tablet Furosemide 40 Mg Oral Twice A Day 30 Days 30 Tab 03/07/18 (Lasix) 40 Mg Tablet Gemfibrozil 600 600 Mg Oral Every 12 30 Days 03/07/18 Mg Tablet Hours Metformin Hcl 500 Mg Oral Twice A Day 30 Days 60 03/07/18 500 Mg Tablet Metoprolol 50 Mg Oral Twice A Day 30 Days 60 03/07/18 Tartrate 50 Mg Tablet Luckey-3 Fatty 1 Tab Oral Daily 30 Days 03/07/18 Acids/Fish Oil (Luckey 3 1,000 Mg Softgel) 1 Each Capsule Zolpidem 10 Mg Oral Bedtime as 15 Days 30 Tab 03/07/18 Tartrate needed for (Ambien) 10 Mg Sleep Tablet Past Home Medications Medication Directions Ordered Status Albuterol Sulfate (Proventil Hfa) Discontinued 6.7 Gm Hfa.aer.ad, Alprazolam (Xanax) 2 Mg Tablet, 1 Mg Twice A Day Discontinued Oral Aspirin (Aspir 81) 81 Mg Tablet., Daily Discontinued 81 Mg Oral Atorvastatin Calcium (Lipitor) 40 Mg Bedtime Discontinued Tablet, Mg Oral Clopidogrel Bisulfate (Plavix) 75 Mg Daily Discontinued Tablet, 75 Mg Oral Escitalopram Oxalate (Lexapro) 10 Mg Daily Discontinued Tablet, 10 Mg Oral Furosemide (Lasix) 40 Mg Tablet, 40 Twice A Day Discontinued Mg Oral Metformin Hcl 500 Mg Tablet, 500 Mg Twice A Day Discontinued Oral Metoprolol Tartrate 50 Mg Tablet, 50 Twice A Day Discontinued Mg Oral Luckey-3 Fatty Acids/Fish Oil (Luckey Daily Discontinued 3 1,000 Mg Softgel) 1 Each Capsule, 1 Tab Oral Zolpidem Tartrate (Ambien) 10 Mg Bedtime as needed for Sleep Discontinued Tablet, 10 Mg Oral Family History Relationship Condition Age at Onset Recorded Date/Time 33 Father FH: chronic renal disease Not Recorded 01/05/2018 6:22pm 33 Father Family history of diabetes mellitus 60 years & older 01/05/2018 6: 20pm 32 Mother FH: chronic renal disease 60 years & older 01/05/2018 6:22pm 32 Mother Family history of diabetes mellitus 60 years & older 01/05/2018 6: 20pm Social History Smoking Status Start Date Stop Date Never Smoker Hospital Discharge Instructions No hospital discharge instruction information available. Plan of Care Discharge Date 03/07/18 10:11am Disposition HOME, SELF-CARE Instructions/Education Provided Chest Pain - Noncardiac Chest Pain - Chest Wall Dyspnea Prescriptions See Medication Section Referrals KAYA ADAIR MD (Internal Medicine) Order Date: 5-7 Days Entered Date: 03/07/2018 7:17am Address: [address] [place] [id number] Functional Status Query Response Date Recorded Assistive Devices None March 06, 2018 5:20pm Ambulation Ability Independent March 06, 2018 5:20pm Toileting Ability Independent March 06, 2018 5:20pm Allergies, Adverse Reactions, Alerts No known allergies. Immunizations No immunization information available. Vital Signs Acute Vital Signs Vital Response Date/Time Temperature (Fahrenheit) 98.0 degrees F (97.6 - 99.5) 03/07/2018 8:13am Pulse Pulse Rate (adult) 82 bpm (60 - 90) 03/07/2018 8:13am Respiratory Rate 19 bpm (12 - 24) 03/07/2018 8:13am Blood Pressure 161/63 mm Hg 03/07/2018 8:13am Height 5 ft 7 in 03/06/2018 10:06am Weight 181.03 lb 03/07/2018 8:14am Body Mass Index 28.4 kg/m^2 03/07/2018 8:14am Results Laboratory Results Test Name Result Units Flags Reference Collection Result Comments Date/Time Date/Time Bedside Glucose 145 mg/dL H 70-120 01/07/2018 01/07/2018 Meter ID: 7:26pm 8:07pm [id number] Lactic Acid Level 19.9 MG/DL H 4.5-19.8 01/05/2018 01/05/2018 1:25pm 1:48pm Amylase Level 91 U/L 25-125 01/05/2018 01/05/2018 8:34am 9:04am White Blood Count 9.33 x10e3/uL 4.8-10.8 03/06/2018 03/06/2018 10:07am 11:07am Red Blood Count 5.01 x10e6/uL 4.3-5.7 03/06/2018 03/06/2018 10:07am 11:07am Hemoglobin 13.2 g/dL L 14.0-18.0 03/06/2018 03/06/2018 10:07am 11:07am Hematocrit 40.0 % 38.2-49.6 03/06/2018 03/06/2018 10:07am 11:07am Mean Corpuscular 79.8 fL L 81-99 03/06/2018 03/06/2018 Volume 10:07am 11:07am Mean Corpuscular 26.3 pg L 28-32 03/06/2018 03/06/2018 Hemoglobin 10:07am 11:07am Mean Corpuscular 33.0 g/dL 31-35 03/06/2018 03/06/2018 Hemoglobin 10:07am 11:07am Concent Red Cell 14.2 % 11.7-14.4 03/06/2018 03/06/2018 Distribution 10:07am 11:07am Width Platelet Count 334 x10e3/uL 140-360 03/06/2018 03/06/2018 10:07am 11:07am Neutrophils (%) 69.4 % 38.7-80.0 03/06/2018 03/06/2018 (Auto) 10:07am 11:07am Lymphocytes (%) 20.0 % 18.0-39.1 03/06/2018 03/06/2018 (Auto) 10:07am 11:07am Monocytes (%) 6.8 % 4.4-11.3 03/06/2018 03/06/2018 (Auto) 10:07am 11:07am Eosinophils (%) 2.6 % 0.0-6.0 03/06/2018 03/06/2018 (Auto) 10:07am 11:07am Basophils (%) 0.8 % 0.0-1.0 03/06/2018 03/06/2018 (Auto) 10:07am 11:07am IM GRANULOCYTES % 0.4 % 0.0-1.0 03/06/2018 03/06/2018 10:07am 11:07am Neutrophils # 6.5 2.1-6.9 03/06/2018 03/06/2018 (Auto) 10:07am 11:07am Lymphocytes # 1.9 1.0-3.2 03/06/2018 03/06/2018 (Auto) 10:07am 11:07am Monocytes # 0.6 0.2-0.8 03/06/2018 03/06/2018 (Auto) 10:07am 11:07am Eosinophils # 0.2 0.0-0.4 03/06/2018 03/06/2018 (Auto) 10:07am 11:07am Basophils # 0.1 0.0-0.1 03/06/2018 03/06/2018 (Auto) 10:07am 11:07am Absolute Immature 0.04 x10e3/uL 0-0.1 03/06/2018 03/06/2018 Granulocyte (auto 10:07am 11:07am Prothrombin Time 12.6 seconds 11.9-14.5 03/06/2018 03/06/2018 10:07am 11:19am Prothromb Time 0.87 03/06/2018 03/06/2018 Oral Anticoagulant Therapy INR Values: International 10:07am 11:19am 1. Low Intensity Therapy 1.5 - 2.0 Ratio 2. Moderate Intensity Therapy 2.0 - 3.0 3. High Intensity Therapy(1) 2.5 - 3.5 4. High Intensity Therapy(2) 3.0 - 4.0 5. Panic Value INR > 5.0 Activated Partial 27.3 seconds 23.8-35.5 03/06/2018 03/06/2018 Thromboplast Time 10:07am 11:19am D-Dimer 0.09 ug/mLFEU 0.00-0.45 03/06/2018 03/06/2018 Quantitative 10:35am 11:44am (PE/DVT) Urine Color YELLOW YELLOW 03/06/2018 03/06/2018 10:07am 10:50am Urine Clarity SL CLOUDY H CLEAR 03/06/2018 03/06/2018 10:07am 10:50am Urine Specific 1.030 H 1.010-1.02 03/06/2018 03/06/2018 Yeaddiss 5 10:07am 10:50am Urine pH 5 5 - 7 03/06/2018 03/06/2018 10:07am 10:50am Urine Leukocyte NEGATIVE NEGATIVE 03/06/2018 03/06/2018 Esterase 10:07am 10:50am Urine Nitrite NEGATIVE NEGATIVE 03/06/2018 03/06/2018 10:07am 10:50am Urine Protein NEGATIVE NEGATIVE 03/06/2018 03/06/2018 10:07am 10:50am Urine Glucose 3+ H NEGATIVE 03/06/2018 03/06/2018 (UA) 10:07am 10:50am Urine Ketones NEGATIVE NEGATIVE 03/06/2018 03/06/2018 10:07am 10:50am Urine 0.2 mg/dL 0.2 - 1 03/06/2018 03/06/2018 Urobilinogen 10:07am 10:50am Urine Bilirubin NEGATIVE NEGATIVE 03/06/2018 03/06/2018 10:07am 10:50am Urine Blood NEGATIVE NEGATIVE 03/06/2018 03/06/2018 10:07am 10:50am Urine WBC NONE /HPF 0-5 03/06/2018 03/06/2018 10:07am 11:04am Urine RBC NONE /HPF 0-5 03/06/2018 03/06/2018 10:07am 11:04am Urine Bacteria NONE /HPF NONE 03/06/2018 03/06/2018 10:07am 11:04am Urine Epithelial RARE /LPF NONE 03/06/2018 03/06/2018 Cells 10:07am 11:04am Sodium Level 135 mmol/L L 136-145 03/06/2018 03/06/2018 10:07am 11:26am Potassium Level 3.6 mmol/L 3.5-5.1 03/06/2018 03/06/2018 10:07am 11:26am Chloride Level 99 mmol/L 98-107 03/06/2018 03/06/2018 10:07am 11:26am Carbon Dioxide 23 mmol/L 22-29 03/06/2018 03/06/2018 Level 10:07am 11:26am Anion Gap 16.6 mmol/L H 8-16 03/06/2018 03/06/2018 10:07am 11:26am Blood Urea 14 mg/dL 7-26 03/06/2018 03/06/2018 Nitrogen 10:07am 11:26am Creatinine 0.98 mg/dL 0.72-1.25 03/06/2018 03/06/2018 10:07am 11:26am BUN/Creatinine 14 6-25 03/06/2018 03/06/2018 Ratio 10:07am 11:26am Estimat > 60 ML/MIN 60- 03/06/2018 03/06/2018 Ranges were taken from the National Kidney Disease Education Glomerular 10:07am 11:26am Program and the National [employer] literature. Filtration Rate Reference ranges: 60 or greater: Normal 16-59 (for 3 consecutive months): Chronic kidney disease 15 or less: Kidney failure Glucose Level 193 mg/dL H 74-118 03/06/2018 03/06/2018 10:07am 11:26am Calcium Level 9.3 mg/dL 8.4-10.2 03/06/2018 03/06/2018 10:07am 11:26am Hemoglobin A1c 8.7 % H 4.0-7.0 03/06/2018 03/06/2018 Percent 6:55pm 7:15pm Magnesium Level 1.6 MG/DL 1.3-2.1 03/06/2018 03/06/2018 10:07am 11:26am Total Bilirubin 0.6 mg/dL 0.2-1.2 03/06/2018 03/06/2018 10:07am 11:26am Aspartate Amino 16 IU/L 5-34 03/06/2018 03/06/2018 Transf (AST/SGOT) 10:07am 11:26am Alanine 33 IU/L 0-55 03/06/2018 03/06/2018 Aminotransferase 10:07am 11:26am (ALT/SGPT) Total Protein 7.1 g/dL 6.5-8.1 03/06/2018 03/06/2018 10:07am 11:26am Albumin 4.1 g/dL 3.5-5.0 03/06/2018 03/06/2018 10:07am 11:26am Globulin 3.0 g/dL 2.3-3.5 03/06/2018 03/06/2018 10:07am 11:26am Albumin/Globulin 1.4 0.8-2.0 03/06/2018 03/06/2018 Ratio 10:07am 11:26am Alkaline 86 IU/L 40-150 03/06/2018 03/06/2018 Phosphatase 10:07am 11:26am Triglycerides 305 MG/DL H 0-149 03/06/2018 03/06/2018 Level 10:07am 4:15pm Cholesterol Level 198 MD/DL 0-199 03/06/2018 03/06/2018 Less than 200 mg/dL Low Risk 10:07am 4:15pm 201 - 239 mg/dL Borderline Risk 240 mg/dl and greater High Risk LDL Cholesterol 97 MG/DL 60-130 03/06/2018 03/06/2018 10:07am 4:15pm HDL Cholesterol 40 MG/DL 40-60 03/06/2018 03/06/2018 10:07am 4:15pm Cholesterol/HDL 5.0 H 3.9-4.7 03/06/2018 03/06/2018 Ratio 10:07am 4:15pm B-Type 12.5 pg/mL 0-100 03/06/2018 03/06/2018 Natriuretic 10:07am 11:31am Peptide Creatine Kinase 48 IU/L 30-200 03/07/2018 03/07/2018 5:00am 5:47am Creatine Kinase 1.00 ng/mL 0-5.0 03/07/2018 03/07/2018 MB 5:00am 6:04am Troponin I < 0.001 ng/mL 0-0.300 03/07/2018 03/07/2018 5:00am 6:04am Lipase 17 U/L 8-78 03/06/2018 03/06/2018 10:07am 11:26am Thyroid 1.537 uIU/mL 0.350-4.94 03/06/2018 03/06/2018 Stimulating 0 10:07am 4:38pm Hormone (TSH) Microbiology Results Procedure Source Organism/Result Collection Result Result Date/Time Date/Time Status Blood Culture Blood STAPHYLOCOCCUS SP 01/05/2018 01/09/2018 Final COAG NEG#2 8:47am 12:03pm STAPH HOMINIS SUB 01/05/2018 01/09/2018 Final HOMINIS 8:47am 12:03pm Blood Culture Blood NO GROWTH AFTER 5 01/07/2018 01/12/2018 Final DAYS, FINAL REPORT 10:06am 10:11am Procedures Procedure Status Date Provider(s) X-ray of chest, two views Active 03/06/18 DANIELLE MARK NP Computed tomography of chest with contrast Active 03/06/18 DANIELLE MARK NP Encounters Encounter Location Arrival/Admit Date Discharge/Depart Date Attending Provider Discharged [facility] 03/06/18 3:02pm 03/07/18 10:11am KAYA ADAIR Inpatient (obs) Patients [facility] Discharged [facility] 01/05/18 11:27am 01/08/18 6:55am KATHERINE TREVIÑO Inpatient Patients [facility]
[2019-07-06] MEDS ORDERED: KETOROLAC 30 MG/ML INJ ONE (03:37)
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
[2019-07-08 02:47] VITALS: TEMP 97.8
[2019-07-08 02:49] VITALS: O2SAT 96
[2019-07-08 02:50] VITALS: BP 131/75
== END 2019-07-06 05:59 | disposition home or self-care (01) ==
LOC: ER 03:00
DX: S22.41XA Multiple fractures of ribs, right side, initial encounter for closed fracture (principal); S06.0X0A Concussion without loss of consciousness, initial encounter; S60.221A Contusion of right hand, initial encounter; V49.49XA Driver injured in collision with other motor vehicles in traffic accident, initial encounter; I10 Essential (primary) hypertension; E11.9 Type 2 diabetes mellitus without complications; F41.9 Anxiety disorder, unspecified
CPT/HCPCS: 70450; 71250; 72125; 96372; 99284

== ENCOUNTER 2019-07-07 06:29 | Emergency (ER) | payer SELFPAY ==
--- OUTSIDE RECORDS SUMMARY | 2019-07-07 06:35 | XMS REPORT ---
:1965 [facility] [address] [place] [address] Dr. Balbuena [address] [place] [id number] Care Team Providers Name Role Phone TRUE [...] ID 2017-10-18 2017-10-18 Emergency E MONICO KYLE [facility] [id number] 10:19:00 11:35:00 2017-10-15 2017-10-17 Outpatient E DEZ VELEZ [facility] [id number] 02:43:00 19:20:00 JONI 2017-10-10 2017-10-10 Outpatient [facility] [id number] 00:00:00 00:00:00 2017-09-18 2017-09-18 Outpatient [facility] [id number] 00:00:00 00:00:00 2017-08-15 2017-08-15 Outpatient [facility] [id number] 09:08:43 09:08:43 2017-08-14 2017-08-14 Outpatient [facility] [id number] 00:00:00 00:00:00 2017-06-27 2017-06-27 Emergency [facility] [id number] 15:22:07 15:22:07 2017-06-27 2017-06-27 Emergency [facility] [id number] 15:12:48 15:12:48 2017-06-27 2017-06-27 Emergency [facility] [id number] 13:26:00 13:26:00 Results Test Description Test Time Test Comments Text Results Atomic Results Result Comments CT 2018-03-06 [facility] [address] [facility] 12:25:00 [place], [place] [address] Patient Name: SHIRLEY HANEY MR #: [id number] W : 1965 Age/Sex: 52/M Req #: [id number] Adm Physician: Ordered by: DANIELLE MARK BEHAVIORAL ASSISTANT Report #: [id number] Location: ER Room/Bed: ____ Procedure: [id number] CT/CT CHEST W Exam Date: 03/06/18 Exam [...] COPY TO: DANIELLE MARK NP CHEST 2018-03-[address], 11:59:00 [place] [address] Patient Name: SHIRLEY HNAEY MR # : [id number] VIEWS : 1965 Age/Sex: 52/M Req #: [id number] Adm Physician: Ordered by: DANIELLE MARK NP Report #: [id number] Location: ER Room/Bed: ____ Procedure: [id number] DX/CHEST 2 VIEWS Exam Date: 03/06/18 Exam [...] on 03/06/18 120 COPY TO: DANIELLE MARK BEHAVIORAL ASSISTANT CHEST 2018-01-[address], SINGLE 11:44:00 [place], [place] [address] Patient Name: SHIRLEY HANEY MR #: [id number] (DELVIS : 1965 Age/Sex: 52/M Req #: [id number] Adm BLE) Physician: Ordered by: MAYCO MITCHELL MD Report #: [id number] Location: ER Room/Bed: ____ Procedure: [id number] DX/CHEST SINGLE (PORTABLE ) Exam Date: 01/05/18 [...] Value Reference Range Comments CULTURE (BEAKER) (test jffz=6039) No growth in 5 days BLOOD [id number] 18:00:00 Test Item Value Reference Range Comments CULTURE (BEAKER) (test gtfn=3772) No growth in 5 days POCT-GLUCOSE [id number] 13:28:00 Test Item Value Reference Range Comments POC-GLUCOSE METER (BEAKER) 130 mg/dL 70-110 TESTED AT [address] (test mjsx=3337) [facility] [address] POCT-GLUCOSE [id number] 08:46:00 Test Item Value Reference Range Comments POC-GLUCOSE METER (BEAKER) 327 mg/dL 70-110 Notified SAMANTHA BOOTHE/TESTED AT [facility] (test ezbo=6672) [facility] [address] CBC W/PLT COUNT & AUTO [id number] 05:22:00 Test Item Value Reference Range Comments WHITE BLOOD CELL COUNT (BEAKER) (test sjnt=938) 11.2 K/ L 3.5-10.5 RED BLOOD CELL COUNT (BEAKER) (test rfgf=111) 3.45 M/ L 4.63-6.08 HEMOGLOBIN (BEAKER) (test suhc=749) 9.7 GM/DL 13.7-17.5 HEMATOCRIT (BEAKER) (test mlmk=198) 29.8 % 40.1-51.0 MEAN CORPUSCULAR VOLUME (BEAKER) (test bxxo=545) 86.4 fL 79.0-92.2 MEAN CORPUSCULAR HEMOGLOBIN (BEAKER) (test 28.1 pg 25.7-32.2 cpmy=220) MEAN CORPUSCULAR HEMOGLOBIN CONC (BEAKER) (test 32.6 GM/DL 32.3-36.5 npcj=132) RED CELL DISTRIBUTION WIDTH (BEAKER) (test 14.0 % 11.6-14.4 pftt=653) PLATELET COUNT (BEAKER) (test fxyd=985) 371 K/CU MM 150-450 MEAN PLATELET VOLUME (BEAKER) (test mlqg=283) 10.7 fL 9.4-12.4 NUCLEATED RED BLOOD CELLS (BEAKER) (test 0 /100 WBC 0-0 lvdx=879) NEUTROPHILS RELATIVE PERCENT (BEAKER) (test 73 % zfvz=845) LYMPHOCYTES RELATIVE PERCENT (BEAKER) (test 13 % bnhh=345) MONOCYTES RELATIVE PERCENT (BEAKER) (test 8 % slar=481) EOSINOPHILS RELATIVE PERCENT (BEAKER) (test 4 % zdnd=948) BASOPHILS RELATIVE PERCENT (BEAKER) (test 0 % iimx=570) NEUTROPHILS ABSOLUTE COUNT (BEAKER) (test 8.11 K/ L 1.78-5.38 uehd=530) LYMPHOCYTES ABSOLUTE COUNT (BEAKER) (test 1.44 K/ L 1.32-3.57 ngfr=637) MONOCYTES ABSOLUTE COUNT (BEAKER) (test 0.90 K/ L 0.30-0.82 cdxk=720) EOSINOPHILS ABSOLUTE COUNT (BEAKER) (test 0.46 K/ L 0.04-0.54 tnzn=341) BASOPHILS ABSOLUTE COUNT (BEAKER) (test 0.04 K/ L 0.01-0.08 pbmu=112) IMMATURE GRANULOCYTES-RELATIVE PERCENT (BEAKER) 2 % 0-1 (test zlyz=1155) [id number] 05:05:00 Test Item Value Reference Range Comments PHOSPHORUS (BEAKER) (test plzw=904) 3.4 mg/dL 2.3-4.7 [id number] 05:05:00 Test Item Value Reference Range Comments MAGNESIUM (BEAKER) (test iatt=483) 2.1 mg/dL 1.6-2.6 BASIC METABOLIC [id number] 05:05:00 Test Item Value Reference Range Comments SODIUM (BEAKER) (test 135 meq/L 136-145 qklj=761) POTASSIUM (BEAKER) (test 4.1 meq/L 3.5-5.1 bhcz=276) CHLORIDE (BEAKER) (test 97 meq/L 98-107 qile=942) CO2 (BEAKER) (test 29 meq/L 22-29 uijw=565) BLOOD UREA NITROGEN 19 mg/dL 7-21 (BEAKER) (test ubsn=510) CREATININE (BEAKER) (test 1.06 mg/dL 0.57-1.25 oyft=512) GLUCOSE RANDOM (BEAKER) 236 mg/dL 70-105 (test wqsm=055) CALCIUM (BEAKER) (test 9.5 mg/dL 8.4-10.2 hcyy=693) EGFR (BEAKER) (test 73 mL/min/1.73 sq m ESTIMATED GFR IS NOT jpme=4433) ACCURATE CREATININE CLEARANCE IN PREDICTING GLOMERULAR FILTRATION RATE. ESTIMATED GFR IS NOT APPLICABLE FOR DIALYSIS PATIENTS. POCT-GLUCOSE [id number] 20:15:00 Test Item Value Reference Range Comments POC-GLUCOSE METER (BEAKER) 117 mg/dL 70-110 TESTED AT [address] (test ivai=4881) [place] [address] POCT-GLUCOSE [id number] 17:08:00 Test Item Value Reference Range Comments POC-GLUCOSE METER (BEAKER) 262 mg/dL 70-110 TESTED AT [address] (test mnso=6680) [place] [address] POCT-GLUCOSE [id number] 12:35:00 Test Item Value Reference Range Comments POC-GLUCOSE METER (BEAKER) 132 mg/dL 70-110 TESTED AT [address] (test chna=0671) [place] [address] POCT-GLUCOSE [id number] 07:56:00 Test Item Value Reference Range Comments POC-GLUCOSE METER (BEAKER) 268 mg/dL 70-110 TESTED AT [address] (test qrql=7653) [place] [address] [id number] 05:53:00 Test Item Value Reference Range Comments PHOSPHORUS (BEAKER) (test wxiu=412) 2.9 mg/dL 2.3-4.7 [id number] 05:53:00 Test Item Value Reference Range Comments MAGNESIUM (BEAKER) (test eynh=059) 1.9 mg/dL 1.6-2.6 BASIC METABOLIC [id number] 05:53:00 Test Item Value Reference Range Comments SODIUM (BEAKER) (test 135 meq/L 136-145 fftq=399) POTASSIUM (BEAKER) (test 4.1 meq/L 3.5-5.1 kfik=954) CHLORIDE (BEAKER) (test 96 meq/L 98-107 iiyo=558) CO2 (BEAKER) (test 30 meq/L 22-29 yqgn=325) BLOOD UREA NITROGEN 15 mg/dL 7-21 (BEAKER) (test vikv=763) CREATININE (BEAKER) (test 0.88 mg/dL 0.57-1.25 ozzp=442) GLUCOSE RANDOM (BEAKER) 148 mg/dL 70-105 (test ycwl=093) CALCIUM (BEAKER) (test 9.4 mg/dL 8.4-10.2 tqoi=950) EGFR (BEAKER) (test 90 mL/min/1.73 sq m ESTIMATED GFR IS NOT yoiu=9546) ACCURATE CREATININE CLEARANCE IN PREDICTING GLOMERULAR FILTRATION RATE. ESTIMATED GFR IS NOT APPLICABLE FOR DIALYSIS PATIENTS. CBC W/PLT COUNT & AUTO [id number] 05:26:00 Test Item Value Reference Range Comments WHITE BLOOD CELL COUNT (BEAKER) (test nglc=221) 12.2 K/ L 3.5-10.5 RED BLOOD CELL COUNT (BEAKER) (test eizn=367) 3.59 M/ L 4.63-6.08 HEMOGLOBIN (BEAKER) (test arsj=699) 10.0 GM/DL 13.7-17.5 HEMATOCRIT (BEAKER) (test vbsa=594) 31.0 % 40.1-51.0 MEAN CORPUSCULAR VOLUME (BEAKER) (test caak=103) 86.4 fL 79.0-92.2 MEAN CORPUSCULAR HEMOGLOBIN (BEAKER) (test 27.9 pg 25.7-32.2 sies=982) MEAN CORPUSCULAR HEMOGLOBIN CONC (BEAKER) (test 32.3 GM/DL 32.3-36.5 yxvq=593) RED CELL DISTRIBUTION WIDTH (BEAKER) (test 14.2 % 11.6-14.4 hfpg=207) PLATELET COUNT (BEAKER) (test bkfp=088) 311 K/CU MM 150-450 MEAN PLATELET VOLUME (BEAKER) (test kwtk=785) 11.0 fL 9.4-12.4 NUCLEATED RED BLOOD CELLS (BEAKER) (test 0 /100 WBC 0-0 ggih=945) NEUTROPHILS RELATIVE PERCENT (BEAKER) (test 77 % erfb=471) LYMPHOCYTES RELATIVE PERCENT (BEAKER) (test 10 % kdhj=386) MONOCYTES RELATIVE PERCENT (BEAKER) (test 8 % qfoo=155) EOSINOPHILS RELATIVE PERCENT (BEAKER) (test 3 % qdai=249) BASOPHILS RELATIVE PERCENT (BEAKER) (test 0 % lory=729) NEUTROPHILS ABSOLUTE COUNT (BEAKER) (test 9.33 K/ L 1.78-5.38 nnrk=586) LYMPHOCYTES ABSOLUTE COUNT (BEAKER) (test 1.17 K/ L 1.32-3.57 gmnk=051) MONOCYTES ABSOLUTE COUNT (BEAKER) (test 1.02 K/ L 0.30-0.82 qcar=858) EOSINOPHILS ABSOLUTE COUNT (BEAKER) (test 0.40 K/ L 0.04-0.54 dbho=794) BASOPHILS ABSOLUTE COUNT (BEAKER) (test 0.05 K/ L 0.01-0.08 jwvp=051) IMMATURE GRANULOCYTES-RELATIVE PERCENT (BEAKER) 2 % 0-1 (test ydap=5629) POCT-GLUCOSE [id number] 21:31:00 Test Item Value Reference Range Comments POC-GLUCOSE METER (BEAKER) 329 mg/dL 70-110 Will Repeat Test/TESTED AT (test yczz=6392) [place] [address] POCT-GLUCOSE [id number] 17:19:00 Test Item Value Reference Range Comments POC-GLUCOSE METER (BEAKER) 174 mg/dL 70-110 TESTED AT [address] (test uhfo=6296) [place] [address] POCT-GLUCOSE [id number] 12:16:00 Test Item Value Reference Range Comments POC-GLUCOSE METER (BEAKER) 188 mg/dL 70-110 TESTED AT [address] (test qtcz=6532) [place] [address] POCT-GLUCOSE [id number] 07:17:00 Test Item Value Reference Range Comments POC-GLUCOSE METER (BEAKER) 145 mg/dL 70-110 TESTED AT [address] (test vnjr=8347) [place] [address] [id number] 05:07:00 Test Item Value Reference Range Comments PHOSPHORUS (BEAKER) (test rwqp=585) 2.4 mg/dL 2.3-4.7 [id number] 05:07:00 Test Item Value Reference Range Comments MAGNESIUM (BEAKER) (test uohr=520) 1.8 mg/dL 1.6-2.6 BASIC METABOLIC [id number] 05:07:00 Test Item Value Reference Range Comments SODIUM (BEAKER) (test 135 meq/L 136-145 uxlg=572) POTASSIUM (BEAKER) (test 3.5 meq/L 3.5-5.1 mxde=340) CHLORIDE (BEAKER) (test 98 meq/L 98-107 ksrg=343) CO2 (BEAKER) (test 30 meq/L 22-29 ktqc=864) BLOOD UREA NITROGEN 14 mg/dL 7-21 (BEAKER) (test ctrf=369) CREATININE (BEAKER) (test 0.87 mg/dL 0.57-1.25 uijr=764) GLUCOSE RANDOM (BEAKER) 141 mg/dL 70-105 (test hyrw=249) CALCIUM (BEAKER) (test 8.4 mg/dL 8.4-10.2 uoyj=384) EGFR (BEAKER) (test 91 mL/min/1.73 sq m ESTIMATED GFR IS NOT otjf=9286) ACCURATE CREATININE CLEARANCE IN PREDICTING GLOMERULAR FILTRATION RATE. ESTIMATED GFR IS NOT APPLICABLE FOR DIALYSIS PATIENTS. HEPATIC FUNCTION [id number] 05:07:00 Test Item Value Reference Range Comments TOTAL PROTEIN (BEAKER) (test zdwa=372) 6.0 gm/dL 6.0-8.3 ALBUMIN (BEAKER) (test dwhr=1851) 3.6 g/dL 3.5-5.0 BILIRUBIN TOTAL (BEAKER) (test pouf=338) 0.9 mg/dL 0.2-1.2 BILIRUBIN DIRECT (BEAKER) (test lyhl=732) 0.5 mg/dL 0.1-0.5 ALKALINE PHOSPHATASE (BEAKER) (test cyfq=568) 114 U/L 40-150 AST (SGOT) (BEAKER) (test zghy=448) 127 U/L 5-34 ALT (SGPT) (BEAKER) (test zdkx=448) 449 U/L 6-55 HEMOGLOBIN AND [id number] 04:49:00 Test Item Value Reference Range Comments HEMOGLOBIN (BEAKER) (test cisn=486) 9.4 GM/DL 13.7-17.5 HEMATOCRIT (BEAKER) (test uzow=427) 28.5 % 40.1-51.0 POCT-GLUCOSE [id number] 21:23:00 Test Item Value Reference Range Comments POC-GLUCOSE METER (BEAKER) 214 mg/dL 70-110 TESTED AT [facility] [address] [place] [address] (test sklw=3653) [facility] [address] POCT-GLUCOSE [id number] 19:21:00 Test Item Value Reference Range Comments POC-GLUCOSE METER (BEAKER) 318 mg/dL 70-110 Notified SAMANTHA BOOTHE/TESTED AT [facility] (test fxod=3845) [address] [place] [address] RAD, ABDOMEN/KUB, 1 VIEW [id number] 16:06:00Reason for exam:->abdominal painFINAL REPORT History: Abdominal [...] Verified Date/ Time: 11/01/2017 16:06:10 Reading Location: [address] Transitional Reading Room POCT-GLUCOSE [id number] 13:45:00 Test Item Value Reference Range Comments POC-GLUCOSE METER (BEAKER) 152 mg/dL 70-110 TESTED AT [address] (test eedv=8057) [facility] [address] VANCOMYCIN LEVEL, [id number] 12:22:00 Test Item Value Reference Range Comments VANCOMYCIN TROUGH (BEAKER) (test plwp=223) 10.3 ug/mL 10.0-20.0 [id number] 06:24:00 Test Item Value Reference Range Comments PHOSPHORUS (BEAKER) (test befz=372) 1.4 mg/dL 2.3-4.7 [id number] 05:26:00 Test Item Value Reference Range Comments MAGNESIUM (BEAKER) (test ooau=737) 2.1 mg/dL 1.6-2.6 HEPATIC FUNCTION [id number] 05:26:00 Test Item Value Reference Range Comments TOTAL PROTEIN (BEAKER) (test hhfd=024) 6.3 gm/dL 6.0-8.3 ALBUMIN (BEAKER) (test htry=5507) 3.8 g/dL 3.5-5.0 BILIRUBIN TOTAL (BEAKER) (test qvln=131) 0.9 mg/dL 0.2-1.2 BILIRUBIN DIRECT (BEAKER) (test xcba=688) 0.5 mg/dL 0.1-0.5 ALKALINE PHOSPHATASE (BEAKER) (test zdbz=054) 113 U/L 40-150 AST (SGOT) (BEAKER) (test zpxn=783) 153 U/L 5-34 ALT (SGPT) (BEAKER) (test hnpq=954) 522 U/L 6-55 [id number] 05:26:00 Test Item Value Reference Range Comments GLUCOSE RANDOM (BEAKER) (test lbcr=484) 154 mg/dL 70-105 BASIC METABOLIC [id number] 05:26:00 Test Item Value Reference Range Comments SODIUM (BEAKER) (test 136 meq/L 136-145 czyz=176) POTASSIUM (BEAKER) (test 3.9 meq/L 3.5-5.1 ners=637) CHLORIDE (BEAKER) (test 100 meq/L 98-107 yecx=873) CO2 (BEAKER) (test 28 meq/L 22-29 qlpt=950) BLOOD UREA NITROGEN 16 mg/dL 7-21 (BEAKER) (test kbwi=617) CREATININE (BEAKER) (test 0.83 mg/dL 0.57-1.25 ejsa=105) GLUCOSE RANDOM (BEAKER) 154 mg/dL 70-105 (test axma=998) CALCIUM (BEAKER) (test 8.5 mg/dL 8.4-10.2 wtor=113) EGFR (BEAKER) (test 97 mL/min/1.73 sq m ESTIMATED GFR IS NOT hgda=6562) ACCURATE CREATININE CLEARANCE IN PREDICTING GLOMERULAR FILTRATION RATE. ESTIMATED GFR IS NOT APPLICABLE FOR DIALYSIS PATIENTS. LACTIC ACID, VENOUS, WHOLE [id number] 05:02:00 Test Item Value Reference Range Comments LACTATE BLOOD VENOUS (2) (BEAKER) (test 1.4 mmol/L 0.5-2.2 jyaf=9296) Effective 09/27/2015: Units/Reference Range ChangeNew: 0.5-2.2 mmol/L Previous: 5 -20 mg/dLHEMOGLOBIN AND [id number] 05:01:00 Test Item Value Reference Range Comments HEMOGLOBIN (BEAKER) (test jzjr=837) 9.7 GM/DL 13.7-17.5 HEMATOCRIT (BEAKER) (test mrds=493) 29.5 % 40.1-51.0 POCT-GLUCOSE [id number] 21:16:00 Test Item Value Reference Range Comments POC-GLUCOSE METER (BEAKER) 250 mg/dL 70-110 TESTED AT [address] (test npyj=7070) [place] [address] POCT-GLUCOSE [id number] 18:12:00 Test Item Value Reference Range Comments POC-GLUCOSE METER (BEAKER) 156 mg/dL 70-110 TESTED AT [address] (test xtek=6533) [place] [address] POCT-GLUCOSE [id number] 18:12:00 Test Item Value Reference Range Comments POC-GLUCOSE METER (BEAKER) 150 mg/dL 70-110 TESTED AT [address] (test wwzo=1468) [place] [address] POCT-GLUCOSE [id number] 17:53:00 Test Item Value Reference Range Comments POC-GLUCOSE METER (BEAKER) 180 mg/dL 70-110 TESTED AT [address] (test ifnp=7136) [place] [address] URINE [id number] 15:58:00 Test Item Value Reference Range Comments CULTURE (BEAKER) (test sucd=2005) No growth POCT-GLUCOSE [id number] 11:50:00 Test Item Value Reference Range Comments POC-GLUCOSE METER (BEAKER) 187 mg/dL 70-110 TESTED AT [address] (test wvva=0388) [place] [address] [id number] 10:12:00 Test Item Value Reference Range Comments LIPASE (BEAKER) (test fffj=047) 5 U/L 8-78 [id number] 10:12:00 Test Item Value Reference Range Comments AMYLASE (BEAKER) (test lobt=484) 35 U/L 25-125 POCT-GLUCOSE [id number] 08:06:00 Test Item Value Reference Range Comments POC-GLUCOSE METER (BEAKER) 105 mg/dL 70-110 TESTED AT [address] (test glib=5252) [place] [address] RAD, CHEST, 1 VIEW, NON [id number] 07:39:00Reason for exam:->post cabgShould this be performed [...] MDReport Verified Date/Time: 10/31/2017 07:39:05 Reading Location: [facility] Radiology Reading Room OXYGEN SATURATION, [id number] 07:12:00 Test Item Value Reference Range Comments O2 SATURATION (MEASURED) (BEAKER) (test ixdf=5964) 68.6 % [id number] 07:09:00 Test Item Value Reference Range Comments PHOSPHORUS (BEAKER) (test ddkr=296) 2.0 mg/dL 2.3-4.7 [id number] 07:09:00 Test Item Value Reference Range Comments MAGNESIUM (BEAKER) (test nccg=941) 1.9 mg/dL 1.6-2.6 POCT-GLUCOSE [id number] 06:35:00 Test Item Value Reference Range Comments POC-GLUCOSE METER (BEAKER) 104 mg/dL 70-110 TESTED AT [address] (test zacc=5352) [place] [address] POCT-GLUCOSE [id number] 06:35:00 Test Item Value Reference Range Comments POC-GLUCOSE METER (BEAKER) 109 mg/dL 70-110 TESTED AT [address] (test khaa=2348) [place] [address] HEPATIC FUNCTION [id number] 04:31:00 Test Item Value Reference Range Comments TOTAL PROTEIN (BEAKER) (test sbdg=808) 5.8 gm/dL 6.0-8.3 ALBUMIN (BEAKER) (test ihuf=4386) 3.7 g/dL 3.5-5.0 BILIRUBIN TOTAL (BEAKER) (test dzjr=378) 1.1 mg/dL 0.2-1.2 BILIRUBIN DIRECT (BEAKER) (test vowe=621) 0.5 mg/dL 0.1-0.5 ALKALINE PHOSPHATASE (BEAKER) (test mibf=838) 105 U/L 40-150 AST (SGOT) (BEAKER) (test pjpn=336) 555 U/L 5-34 ALT (SGPT) (BEAKER) (test duou=611) 761 U/L 6-55 BASIC METABOLIC [id number] 04:31:00 Test Item Value Reference Range Comments SODIUM (BEAKER) (test 136 meq/L 136-145 yrxe=098) POTASSIUM (BEAKER) (test 3.8 meq/L 3.5-5.1 jlds=817) CHLORIDE (BEAKER) (test 102 meq/L 98-107 ligk=032) CO2 (BEAKER) (test 26 meq/L 22-29 hqdb=206) BLOOD UREA NITROGEN 18 mg/dL 7-21 (BEAKER) (test trxx=479) CREATININE (BEAKER) (test 0.87 mg/dL 0.57-1.25 xjwr=948) GLUCOSE RANDOM (BEAKER) 82 mg/dL 70-105 (test odma=017) CALCIUM (BEAKER) (test 8.6 mg/dL 8.4-10.2 iypd=182) EGFR (BEAKER) (test 91 mL/min/1.73 sq m ESTIMATED GFR IS NOT ufbp=8832) ACCURATE CREATININE CLEARANCE IN PREDICTING GLOMERULAR FILTRATION RATE. ESTIMATED GFR IS NOT APPLICABLE FOR DIALYSIS PATIENTS. POCT-GLUCOSE [id number] 04:21:00 Test Item Value Reference Range Comments POC-GLUCOSE METER (BEAKER) 110 mg/dL 70-110 TESTED AT [facility] [address] [place] [address] (test fymd=8844) [place] [address] LACTIC ACID, VENOUS, WHOLE [id number] 04:17:00 Test Item Value Reference Range Comments LACTATE BLOOD VENOUS (2) (BEAKER) (test 1.7 mmol/L 0.5-2.2 okpi=5922) Effective 09/27/2015: Units/Reference Range ChangeNew: 0.5-2.2 mmol/L Previous: 5 -20 mg/dLCBC (HEMOGRAM ONLY)2017-10-31 03:53:00 Test Item Value Reference Range Comments WHITE BLOOD CELL COUNT (BEAKER) (test iixd=107) 16.5 K/ L 3.5-10.5 RED BLOOD CELL COUNT (BEAKER) (test tzcg=367) 3.07 M/ L 4.63-6.08 HEMOGLOBIN (BEAKER) (test qsop=184) 8.9 GM/DL 13.7-17.5 HEMATOCRIT (BEAKER) (test kauv=085) 26.8 % 40.1-51.0 MEAN CORPUSCULAR VOLUME (BEAKER) (test kkqd=251) 87.3 fL 79.0-92.2 MEAN CORPUSCULAR HEMOGLOBIN (BEAKER) (test 29.0 pg 25.7-32.2 ebro=671) MEAN CORPUSCULAR HEMOGLOBIN CONC (BEAKER) (test 33.2 GM/DL 32.3-36.5 mrkq=667) RED CELL DISTRIBUTION WIDTH (BEAKER) (test 14.4 % 11.6-14.4 ooku=802) PLATELET COUNT (BEAKER) (test ajcn=381) 136 K/CU MM 150-450 MEAN PLATELET VOLUME (BEAKER) (test laqj=112) 12.1 fL 9.4-12.4 NUCLEATED RED BLOOD CELLS (BEAKER) (test 0 /100 WBC 0-0 exsv=684) POCT-GLUCOSE [id number] 02:20:00 Test Item Value Reference Range Comments POC-GLUCOSE METER (BEAKER) 100 mg/dL 70-110 TESTED AT [address] (test zypp=1634) [facility] [address] POCT-GLUCOSE [id number] 01:05:00 Test Item Value Reference Range Comments POC-GLUCOSE METER (BEAKER) 110 mg/dL 70-110 TESTED AT [address] (test jxfo=9251) [facility] [address] POCT-GLUCOSE [id number] 00:31:00 Test Item Value Reference Range Comments POC-GLUCOSE METER (BEAKER) 133 mg/dL 70-110 TESTED AT [address] (test yiiv=0060) [facility] [address] POCT-GLUCOSE [id number] 23:06:00 Test Item Value Reference Range Comments POC-GLUCOSE METER (BEAKER) 182 mg/dL 70-110 TESTED AT [address] (test cbqx=8995) [facility] [address] POCT-GLUCOSE [id number] 23:06:00 Test Item Value Reference Range Comments POC-GLUCOSE METER (BEAKER) 258 mg/dL 70-110 TESTED AT [address] (test bnie=3942) [facility] [address] POCT-GLUCOSE [id number] 21:10:00 Test Item Value Reference Range Comments POC-GLUCOSE METER (BEAKER) 174 mg/dL 70-110 TESTED AT [address] (test ufol=3796) [facility] [address] POCT-GLUCOSE [id number] 20:06:00 Test Item Value Reference Range Comments POC-GLUCOSE METER (BEAKER) 147 mg/dL 70-110 TESTED AT [address] (test dwvc=8634) [facility] [address] RAD, CHEST, 1 VIEW, NON [id number] 19:22:00Reason for exam:->SOBShould this be performed at [...] MDReport Verified Date/Time: 10/30/2017 19:22:13 Reading Location: [address] Reading Room [id number] 18:46:00 Test Item Value Reference Range Comments PHOSPHORUS (BEAKER) (test nrkn=631) 1.7 mg/dL 2.3-4.7 [id number] 18:46:00 Test Item Value Reference Range Comments MAGNESIUM (BEAKER) (test rvcn=284) 2.2 mg/dL 1.6-2.6 BASIC METABOLIC [id number] 18:46:00 Test Item Value Reference Range Comments SODIUM (BEAKER) (test 134 meq/L 136-145 mgkm=765) POTASSIUM (BEAKER) (test 4.3 meq/L 3.5-5.1 myxm=890) CHLORIDE (BEAKER) (test 99 meq/L 98-107 onbp=106) CO2 (BEAKER) (test 28 meq/L 22-29 uitr=825) BLOOD UREA NITROGEN 20 mg/dL 7-21 (BEAKER) (test cxpp=461) CREATININE (BEAKER) (test 1.02 mg/dL 0.57-1.25 lyey=973) GLUCOSE RANDOM (BEAKER) 148 mg/dL 70-105 (test wziv=671) CALCIUM (BEAKER) (test 8.8 mg/dL 8.4-10.2 hdke=054) EGFR (BEAKER) (test 76 mL/min/1.73 sq m ESTIMATED GFR IS NOT sovy=2515) ACCURATE CREATININE CLEARANCE IN PREDICTING GLOMERULAR FILTRATION RATE. ESTIMATED GFR IS NOT APPLICABLE FOR DIALYSIS PATIENTS. LACTIC ACID, VENOUS, WHOLE [id number] 18:39:00 Test Item Value Reference Range Comments LACTATE BLOOD VENOUS (2) (BEAKER) (test 2.8 mmol/L 0.5-2.2 jejt=4513) Effective 09/27/2015: Units/Reference Range ChangeNew: 0.5-2.2 mmol/L Previous: 5 -20 mg/dLCBC W/PLT COUNT & AUTO [id number] 18:11:00 Test Item Value Reference Range Comments WHITE BLOOD CELL COUNT (BEAKER) (test asvl=590) 15.0 K/ L 3.5-10.5 RED BLOOD CELL COUNT (BEAKER) (test uxkw=973) 3.20 M/ L 4.63-6.08 HEMOGLOBIN (BEAKER) (test nzmw=037) 9.2 GM/DL 13.7-17.5 HEMATOCRIT (BEAKER) (test ejzd=528) 28.1 % 40.1-51.0 MEAN CORPUSCULAR VOLUME (BEAKER) (test ohti=677) 87.8 fL 79.0-92.2 MEAN CORPUSCULAR HEMOGLOBIN (BEAKER) (test 28.8 pg 25.7-32.2 zvot=468) MEAN CORPUSCULAR HEMOGLOBIN CONC (BEAKER) (test 32.7 GM/DL 32.3-36.5 wula=459) RED CELL DISTRIBUTION WIDTH (BEAKER) (test 14.1 % 11.6-14.4 yneu=161) PLATELET COUNT (BEAKER) (test tsat=904) 133 K/CU MM 150-450 MEAN PLATELET VOLUME (BEAKER) (test bwuw=339) 12.1 fL 9.4-12.4 NUCLEATED RED BLOOD CELLS (BEAKER) (test 0 /100 WBC 0-0 tate=911) NEUTROPHILS RELATIVE PERCENT (BEAKER) (test 81 % qxqa=942) LYMPHOCYTES RELATIVE PERCENT (BEAKER) (test 10 % evxw=202) MONOCYTES RELATIVE PERCENT (BEAKER) (test 8 % mhrv=607) EOSINOPHILS RELATIVE PERCENT (BEAKER) (test 0 % gizq=072) BASOPHILS RELATIVE PERCENT (BEAKER) (test 0 % xdvg=619) NEUTROPHILS ABSOLUTE COUNT (BEAKER) (test 12.24 K/ L 1.78-5.38 fcza=348) LYMPHOCYTES ABSOLUTE COUNT (BEAKER) (test 1.53 K/ L 1.32-3.57 lmuo=768) MONOCYTES ABSOLUTE COUNT (BEAKER) (test 1.12 K/ L 0.30-0.82 jnqg=957) EOSINOPHILS ABSOLUTE COUNT (BEAKER) (test 0.01 K/ L 0.04-0.54 tlme=048) BASOPHILS ABSOLUTE COUNT (BEAKER) (test 0.04 K/ L 0.01-0.08 ysfa=755) IMMATURE GRANULOCYTES-RELATIVE PERCENT (BEAKER) 1 % 0-1 (test vykq=7588) POCT-GLUCOSE [id number] 17:53:00 Test Item Value Reference Range Comments POC-GLUCOSE METER (BEAKER) 171 mg/dL 70-110 TESTED AT [facility] [address] [facility] (test puqk=5055) [facility] [address] POCT-GLUCOSE [id number] 15:48:00 Test Item Value Reference Range Comments POC-GLUCOSE METER (BEAKER) 215 mg/dL 70-110 TESTED AT [facility] [address] (test swbz=6964) [place] [address] LACTIC ACID, VENOUS, WHOLE [id number] 14:56:00 Test Item Value Reference Range Comments LACTATE BLOOD VENOUS (2) (BEAKER) (test 2.9 mmol/L 0.5-2.2 lnws=3347) Effective 09/27/2015: Units/Reference Range ChangeNew: 0.5-2.2 mmol/L Previous: 5 -20 mg/dLTROPONIN [id number] 12:37:00 Test Item Value Reference Range Comments TROPONIN I (BEAKER) (test mmzm=659) 1.80 ng/mL 0.00-0.03 Troponin I (TnI) levels [...] acute neurological disease, and persistent tachyarrhythmia.HEPATIC FUNCTION [id number] 12:16: 00 Test Item Value Reference Range Comments TOTAL PROTEIN (BEAKER) (test wsep=538) 5.9 gm/dL 6.0-8.3 ALBUMIN (BEAKER) (test aihx=4221) 3.8 g/dL 3.5-5.0 BILIRUBIN TOTAL (BEAKER) (test gmgg=627) 1.1 mg/dL 0.2-1.2 BILIRUBIN DIRECT (BEAKER) (test getv=890) 0.6 mg/dL 0.1-0.5 ALKALINE PHOSPHATASE (BEAKER) (test hrjz=326) 66 U/L 40-150 AST (SGOT) (BEAKER) (test jfal=764) 151 U/L 5-34 ALT (SGPT) (BEAKER) (test osiu=533) 200 U/L 6-55 COMPREHENSIVE METABOLIC [id number] 12:16:00 Test Item Value Reference Range Comments TOTAL PROTEIN (BEAKER) 5.9 gm/dL 6.0-8.3 (test jfbn=651) ALBUMIN (BEAKER) (test 3.8 g/dL 3.5-5.0 stnq=8017) ALKALINE PHOSPHATASE 66 U/L 40-150 (BEAKER) (test xhge=876) BILIRUBIN TOTAL (BEAKER) 1.1 mg/dL 0.2-1.2 (test bicw=498) SODIUM (BEAKER) (test 134 meq/L 136-145 gbpu=090) POTASSIUM (BEAKER) (test 4.7 meq/L 3.5-5.1 txkg=551) CHLORIDE (BEAKER) (test 101 meq/L 98-107 xooz=806) CO2 (BEAKER) (test 23 meq/L 22-29 qnsk=476) BLOOD UREA NITROGEN 20 mg/dL 7-21 (BEAKER) (test pitv=274) CREATININE (BEAKER) (test 1.20 mg/dL 0.57-1.25 eauo=159) GLUCOSE RANDOM (BEAKER) 262 mg/dL 70-105 (test xmdd=111) CALCIUM (BEAKER) (test 8.8 mg/dL 8.4-10.2 qbfj=678) AST (SGOT) (BEAKER) (test 151 U/L 5-34 rzgk=158) ALT (SGPT) (BEAKER) (test 200 U/L 6-55 fcul=002) EGFR (BEAKER) (test 63 mL/min/1.73 sq m ESTIMATED GFR IS NOT ztgg=8434) ACCURATE CREATININE CLEARANCE IN PREDICTING GLOMERULAR FILTRATION RATE. ESTIMATED GFR IS NOT APPLICABLE FOR DIALYSIS PATIENTS. POCT-BLOOD GASES, [id number] 11:45:00 Test Item Value Reference Range Comments TEMP, CELSIUS-POC (BEAKER) 37.0 (test nhax=0393) FIO2-POC (BEAKER) (test TESTED AT [facility] [address] [facility] latd=6787) [facility] [address] PH, ARTERIAL-POC (BEAKER) 7.406 7.350-7.450 (test fvde=3835) PCO2, ARTERIAL-POC (BEAKER) 41.1 mm Hg 35.0-45.0 (test yhso=5947) PO2, ARTERIAL-POC (BEAKER) 78.0 mm Hg 80.0-90.0 (test ujnm=0520) SO2, ARTERIAL-POC (BEAKER) 95.0 % 96.0-97.0 (test zoex=7333) HCO3, ARTERIAL-POC (BEAKER) 25.8 meq/L 21.0-29.0 (test yxvk=3454) BASE EXCESS, ARTERIAL-POC 1.0 meq/L -2.0-3.0 (BEAKER) (test uaoa=7244) [id number] 11:45:00 Test Item Value Reference Range Comments POC-SODIUM (BEAKER) (test 132 meq/L 135-148 TESTED AT [address] ajpp=5506) [place] [address] [id number] 11:45:00 Test Item Value Reference Range Comments POC-POTASSIUM (BEAKER) (test 4.5 meq/L 3.6-5.5 TESTED AT [address] fzzk=2028) [place] [address] [id number] 11:45:00 Test Item Value Reference Range Comments POC-GLUCOSE (BEAKER) (test 254 mg/dL 70-110 TESTED AT [address] fpyq=6259) [place] [address] POCT-CALCIUM [id number] 11:45:00 Test Item Value Reference Range Comments POC-CALCIUM IONIZED (BEAKER) 1.18 mmol/L 1.12-1.27 TESTED AT [address] (test zyda=9250) [place] [address] [id number] 11:45:00 Test Item Value Reference Range Comments POC-HEMATOCRIT (BEAKER) (test 23 % 40-50 TESTED AT [address] txrl=1758) [place] [address] [id number] 11:45:00 Test Item Value Reference Range Comments POC-HEMOGLOBIN (BEAKER) 7.8 g/dL 13.0-16.8 TESTED AT [address] (test owog=7289) [place] [address]TESTED AT [place] [address] POCT-LACTIC ACID, [id number] 10:04:00 Test Item Value Reference Range Comments POC-LACTIC ACID, VENOUS 3.1 mmol/L 0.9-1.7 TESTED AT [place] [address] [facility] (BEAKER) (test slnh=7471) [place] [address] POCT-GLUCOSE [id number] 07:46:00 Test Item Value Reference Range Comments POC-GLUCOSE METER (BEAKER) 270 mg/dL 70-110 TESTED AT [facility] [address] (test gpwt=1401) [facility] [address] [id number] 07:16:00 Test Item Value Reference Range Comments PHOSPHORUS (BEAKER) (test qyil=385) 1.3 mg/dL 2.3-4.7 [id number] 07:07:00 Test Item Value Reference Range Comments MAGNESIUM (BEAKER) (test hflc=760) 2.0 mg/dL 1.6-2.6 BASIC METABOLIC [id number] 07:07:00 Test Item Value Reference Range Comments SODIUM (BEAKER) (test 134 meq/L 136-145 tjpi=726) POTASSIUM (BEAKER) (test 4.1 meq/L 3.5-5.1 ekzw=227) CHLORIDE (BEAKER) (test 100 meq/L 98-107 sdei=834) CO2 (BEAKER) (test 26 meq/L 22-29 bvlo=451) BLOOD UREA NITROGEN 17 mg/dL 7-21 (BEAKER) (test mvwa=598) CREATININE (BEAKER) (test 0.87 mg/dL 0.57-1.25 fetd=926) GLUCOSE RANDOM (BEAKER) 253 mg/dL 70-105 (test namv=601) CALCIUM (BEAKER) (test 9.1 mg/dL 8.4-10.2 aawh=986) EGFR (BEAKER) (test 91 mL/min/1.73 sq m ESTIMATED GFR IS NOT lfdd=9828) ACCURATE CREATININE CLEARANCE IN PREDICTING GLOMERULAR FILTRATION RATE. ESTIMATED GFR IS NOT APPLICABLE FOR DIALYSIS PATIENTS. CBC (HEMOGRAM ONLY)2017-10-30 07:00:00 Test Item Value Reference Range Comments WHITE BLOOD CELL COUNT (BEAKER) (test ddih=589) 16.4 K/ L 3.5-10.5 RED BLOOD CELL COUNT (BEAKER) (test ufvv=044) 2.85 M/ L 4.63-6.08 HEMOGLOBIN (BEAKER) (test yzli=304) 8.1 GM/DL 13.7-17.5 HEMATOCRIT (BEAKER) (test qwal=913) 24.3 % 40.1-51.0 MEAN CORPUSCULAR VOLUME (BEAKER) (test lwva=521) 85.3 fL 79.0-92.2 MEAN CORPUSCULAR HEMOGLOBIN (BEAKER) (test 28.4 pg 25.7-32.2 elte=129) MEAN CORPUSCULAR HEMOGLOBIN CONC (BEAKER) (test 33.3 GM/DL 32.3-36.5 kcln=064) RED CELL DISTRIBUTION WIDTH (BEAKER) (test 14.5 % 11.6-14.4 xrhd=953) PLATELET COUNT (BEAKER) (test jets=822) 168 K/CU MM 150-450 MEAN PLATELET VOLUME (BEAKER) (test fqsi=166) 12.4 fL 9.4-12.4 NUCLEATED RED BLOOD CELLS (BEAKER) (test 0 /100 WBC 0-0 dyjr=742) RAD, CHEST, 1 VIEW, NON [id number] 05:44:00Reason for exam:->post cabgShould this be performed at the bedside?->YesFINAL REPORT Chest one view. Clinical history: post cabg Comparison: Chest radiograph 10/29/17, 3:19 AM Technique: A single frontal view of the chest was obtained. Findings: There has been interval removal of Golva-Aleida catheter. Mediastinal drain and left tubes are [...] MDReport Verified Date/Time: 10/30/2017 05:44:31 Reading Location: [address] Transitional Reading Room POCT-GLUCOSE [id number] 00:20:00 Test Item Value Reference Range Comments POC-GLUCOSE METER (BEAKER) 307 mg/dL 70-110 TESTED AT [facility] [address] [facility] (test npzn=3760) [facility] [address] POCT-GLUCOSE [id number] 21:38:00 Test Item Value Reference Range Comments POC-GLUCOSE METER (BEAKER) 307 mg/dL 70-110 Notified SAMANTHA BOOTHE/TESTED AT [facility] (test geum=0661) [address] [facility] [address] POCT-GLUCOSE [id number] 16:55:00 Test Item Value Reference Range Comments POC-GLUCOSE METER (BEAKER) 229 mg/dL 70-110 TESTED AT [address] (test hsbr=9817) [place] [id number] VRE [id number] 10:51:00 Test Item Value Reference Range Comments CULTURE (BEAKER) (test No vancomycin-resistant xvvu=2691) Enterococcus isolated POCT-GLUCOSE [id number] 04:36:00 Test Item Value Reference Range Comments POC-GLUCOSE METER (BEAKER) 123 mg/dL 70-110 TESTED AT [address] (test khiu=6537) [place] [address] [id number] 04:12:00 Test Item Value Reference Range Comments PHOSPHORUS (BEAKER) (test sgxr=369) 3.4 mg/dL 2.3-4.7 [id number] 04:12:00 Test Item Value Reference Range Comments MAGNESIUM (BEAKER) (test vfqg=604) 1.9 mg/dL 1.6-2.6 BASIC METABOLIC [id number] 04:12:00 Test Item Value Reference Range Comments SODIUM (BEAKER) (test 139 meq/L 136-145 ggsv=348) POTASSIUM (BEAKER) (test 3.8 meq/L 3.5-5.1 grzu=500) CHLORIDE (BEAKER) (test 107 meq/L 98-107 vshv=346) CO2 (BEAKER) (test 24 meq/L 22-29 fxxh=312) BLOOD UREA NITROGEN 10 mg/dL 7-21 (BEAKER) (test lgcm=683) CREATININE (BEAKER) (test 0.88 mg/dL 0.57-1.25 fdpc=134) GLUCOSE RANDOM (BEAKER) 120 mg/dL 70-105 (test gxbu=859) CALCIUM (BEAKER) (test 8.7 mg/dL 8.4-10.2 jqdt=243) EGFR (BEAKER) (test 90 mL/min/1.73 sq m ESTIMATED GFR IS NOT lqkw=9749) ACCURATE CREATININE CLEARANCE IN PREDICTING GLOMERULAR FILTRATION RATE. ESTIMATED GFR IS NOT APPLICABLE FOR DIALYSIS PATIENTS. LACTIC ACID, ARTERIAL, WHOLE [id number] 04:03:00 Test Item Value Reference Range Comments LACTATE BLOOD ARTERIAL (2) (BEAKER) (test 0.9 mmol/L 0.5-2.2 kejd=4580) Effective 09/27/2015: Units/Reference Range ChangeNew: 0.5-2.2 mmol/L Previous: 5 -20 mg/dLCBC (HEMOGRAM ONLY)2017-10-29 03:58:00 Test Item Value Reference Range Comments WHITE BLOOD CELL COUNT (BEAKER) (test pndy=613) 8.4 K/ L 3.5-10.5 RED BLOOD CELL COUNT (BEAKER) (test sawt=362) 2.83 M/ L 4.63-6.08 HEMOGLOBIN (BEAKER) (test aptz=905) 8.0 GM/DL 13.7-17.5 HEMATOCRIT (BEAKER) (test qqxs=674) 24.1 % 40.1-51.0 MEAN CORPUSCULAR VOLUME (BEAKER) (test pivw=729) 85.2 fL 79.0-92.2 MEAN CORPUSCULAR HEMOGLOBIN (BEAKER) (test 28.3 pg 25.7-32.2 iyxc=602) MEAN CORPUSCULAR HEMOGLOBIN CONC (BEAKER) (test 33.2 GM/DL 32.3-36.5 olin=010) RED CELL DISTRIBUTION WIDTH (BEAKER) (test 14.3 % 11.6-14.4 xupz=492) PLATELET COUNT (BEAKER) (test tznm=126) 153 K/CU MM 150-450 MEAN PLATELET VOLUME (BEAKER) (test tohr=746) 11.4 fL 9.4-12.4 NUCLEATED RED BLOOD CELLS (BEAKER) (test 0 /100 WBC 0-0 wwqe=558) BLOOD GAS, [id number] 03:52:00 Test Item Value Reference Range Comments PH ARTERIAL (BEAKER) (test mhan=243) 7.38 7.35-7.45 PCO2 ARTERIAL (BEAKER) (test rtfk=826) 45 mmHg 35-45 PO2 ARTERIAL (BEAKER) (test jzcg=688) 90 mmHg 80-90 O2 SATURATION ARTERIAL (BEAKER) (test hziu=157) 96.5 % 96.0-97.0 HCO3 ARTERIAL (BEAKER) (test azxc=310) 26 mmol/L 21-29 BASE EXCESS ARTERIAL (BEAKER) (test tmyb=103) 0.6 mmol/L -2.0-3.0 PATIENT TEMPERATURE (BEAKER) (test opdz=7989) 37.6 C FIO2 (BEAKER) (test vpem=2038) 32.0 % CALCIUM, [id number] 03:52:00 Test Item Value Reference Range Comments CALCIUM IONIZED (BEAKER) (test heyn=925) 1.12 mmol/L 1.12-1.27 PH, BLOOD (BEAKER) (test ekgw=8090) 7.39 OXYGEN SATURATION, [id number] 03:49:00 Test Item Value Reference Range Comments O2 SATURATION (MEASURED) (BEAKER) (test tvcp=8971) 66.1 % RAD, CHEST, 1 VIEW, NON [id number] 03:39:00Reason for exam:->post cabgShould this be performed at the bedside?->YesFINAL REPORT Comparison exam: 10/28/2017 No pneumothorax, focal pulmonary consolidation, or significant pleural effusion. Stable cardiomediastinal contours. Appropriate position of the support hardware. Signed: Misha Mckenzie Verified Date/Time: 10/29/2017 03:39:23 Reading Location: [address] Reading Room POCT-GLUCOSE [id number] 00:54:00 Test Item Value Reference Range Comments POC-GLUCOSE METER (BEAKER) 131 mg/dL 70-110 TESTED AT [address] (test nbma=7399) [facility] [address] POCT-GLUCOSE [id number] 23:47:00 Test Item Value Reference Range Comments POC-GLUCOSE METER (BEAKER) 149 mg/dL 70-110 TESTED AT [address] (test qise=7654) [facility] [address] POCT-GLUCOSE [id number] 23:14:00 Test Item Value Reference Range Comments POC-GLUCOSE METER (BEAKER) 123 mg/dL 70-110 TESTED AT [address] (test pcyg=5114) [facility] [address] BLOOD GAS, [id number] 23:06:00 Test Item Value Reference Range Comments PH ARTERIAL (BEAKER) (test jmxu=655) 7.40 7.35-7.45 PCO2 ARTERIAL (BEAKER) (test sazo=350) 43 mmHg 35-45 PO2 ARTERIAL (BEAKER) (test tiiy=244) 117 mmHg 80-90 O2 SATURATION ARTERIAL (BEAKER) (test qick=842) 98.0 % 96.0-97.0 HCO3 ARTERIAL (BEAKER) (test tgvj=286) 26 mmol/L 21-29 BASE EXCESS ARTERIAL (BEAKER) (test motx=366) 0.9 mmol/L -2.0-3.0 PATIENT TEMPERATURE (BEAKER) (test ldrm=8801) 38.1 C FIO2 (BEAKER) (test aeks=8253) 40.0 % LACTIC ACID, ARTERIAL, WHOLE [id number] 22:06:00 Test Item Value Reference Range Comments LACTATE BLOOD ARTERIAL (2) (BEAKER) (test 3.3 mmol/L 0.5-2.2 fegb=1308) Effective 09/27/2015: Units/Reference Range ChangeNew: 0.5-2.2 mmol/L Previous: 5 -20 mg/dLPOCT-GLUCOSE [id number] 21:49:00 Test Item Value Reference Range Comments POC-GLUCOSE METER (BEAKER) 164 mg/dL 70-110 TESTED AT [address] (test seax=5288) [place] [id number] POCT-GLUCOSE [id number] 21:32:00 Test Item Value Reference Range Comments POC-GLUCOSE METER (BEAKER) 146 mg/dL 70-110 TESTED AT [address] (test oodu=5260) [facility] [address] BLOOD GAS, [id number] 21:27:00 Test Item Value Reference Range Comments PH ARTERIAL (BEAKER) (test dbmh=203) 7.35 7.35-7.45 PCO2 ARTERIAL (BEAKER) (test ztcp=691) 46 mmHg 35-45 PO2 ARTERIAL (BEAKER) (test flya=988) 123 mmHg 80-90 O2 SATURATION ARTERIAL (BEAKER) (test txzz=282) 98.1 % 96.0-97.0 HCO3 ARTERIAL (BEAKER) (test rbod=926) 25 mmol/L 21-29 BASE EXCESS ARTERIAL (BEAKER) (test sjtb=316) -0.8 mmol/L -2.0-3.0 PATIENT TEMPERATURE (BEAKER) (test idzi=4056) 38.2 C FIO2 (BEAKER) (test badm=4237) 40.0 % HGB/HCT (H&H) - STAT [id number] 21:27:00 Test Item Value Reference Range Comments HEMOGLOBIN (BEAKER) (test qypd=388) 8.2 g/dL 13.0-16.8 HEMATOCRIT (BEAKER) (test xcgc=198) 24.0 % 40.0-50.0 LACTIC ACID, ARTERIAL, WHOLE [id number] 20:36:00 Test Item Value Reference Range Comments LACTATE BLOOD ARTERIAL (2) (BEAKER) (test 3.8 mmol/L 0.5-2.2 vcqd=8006) Effective 09/27/2015: Units/Reference Range ChangeNew: 0.5-2.2 mmol/L Previous: 5 -20 mg/[id number] 20:34:00 Test Item Value Reference Range Comments MAGNESIUM (BEAKER) (test zqlb=293) 2.1 mg/dL 1.6-2.6 POTASSIUM-STAT [id number] 20:11:00 Test Item Value Reference Range Comments POTASSIUM (BEAKER) (test jjdo=786) 3.6 meq/L 3.6-5.5 CALCIUM, [id number] 20:11:00 Test Item Value Reference Range Comments CALCIUM IONIZED (BEAKER) (test nygh=584) 1.17 mmol/L 1.12-1.27 PH, BLOOD (BEAKER) (test xobl=7454) 7.34 BLOOD GAS, [id number] 20:11:00 Test Item Value Reference Range Comments PH ARTERIAL (BEAKER) (test izcd=420) 7.34 7.35-7.45 PCO2 ARTERIAL (BEAKER) (test oria=706) 47 mmHg 35-45 PO2 ARTERIAL (BEAKER) (test synx=140) 152 mmHg 80-90 O2 SATURATION ARTERIAL (BEAKER) (test fddr=962) 98.7 % 96.0-97.0 HCO3 ARTERIAL (BEAKER) (test fopg=313) 24 mmol/L 21-29 BASE EXCESS ARTERIAL (BEAKER) (test jxhg=509) -1.3 mmol/L -2.0-3.0 PATIENT TEMPERATURE (BEAKER) (test xlsu=2664) 38.3 C FIO2 (BEAKER) (test jelr=2064) 50.0 % HGB/HCT (H&H) - STAT [id number] 20:11:00 Test Item Value Reference Range Comments HEMOGLOBIN (BEAKER) (test gczz=333) 8.2 g/dL 13.0-16.8 HEMATOCRIT (BEAKER) (test vsgi=740) 24.0 % 40.0-50.0 POCT-GLUCOSE [id number] 19:46:00 Test Item Value Reference Range Comments POC-GLUCOSE METER (BEAKER) 151 mg/dL 70-110 TESTED AT [address] (test mpxm=2874) [place] [id number] POCT-GLUCOSE [id number] 19:05:00 Test Item Value Reference Range Comments POC-GLUCOSE METER (BEAKER) 141 mg/dL 70-110 TESTED AT [address] (test sfig=2001) [facility] [address] POCT-GLUCOSE [id number] 19:05:00 Test Item Value Reference Range Comments POC-GLUCOSE METER (BEAKER) 143 mg/dL 70-110 TESTED AT [address] (test ilxu=1805) [place] [id number] POCT-GLUCOSE [id number] 19:05:00 Test Item Value Reference Range Comments POC-GLUCOSE METER (BEAKER) 162 mg/dL 70-110 TESTED AT [address] (test bulb=9036) [facility] [address] RAD, CHEST, 1 VIEW, NON [id number] 17:29:00Reason for exam:->post cabgShould this be performed at the bedside?->YesFINAL REPORT TECHNIQUE: Frontal chest radiograph dated 10/28/2017. CLINICAL HISTORY: Post CABG COMPARISON STUDY: Chest radiograph dated 10/27/2017 IMPRESSION: Endotracheal tube is 5.9 cm above the naheed. Right-sided Golva-Aleida catheter tip projects over the region of [...] 17:29:10 Reading Location: [facility] Radiology Reading Room [id number] 16:26:00 Test Item Value Reference Range Comments PHOSPHORUS (BEAKER) (test 1.2 mg/dL 2.3-4.7 Specimen slightly hemolyzed fabp=138) [id number] 16:20:00 Test Item Value Reference Range Comments MAGNESIUM (BEAKER) (test 2.7 mg/dL 1.6-2.6 Specimen slightly hemolyzed fgec=134) BASIC METABOLIC [id number] 16:20:00 Test Item Value Reference Range Comments SODIUM (BEAKER) (test 140 meq/L 136-145 tzzc=946) POTASSIUM (BEAKER) (test 3.6 meq/L 3.5-5.1 Specimen slightly uogh=020) hemolyzed CHLORIDE (BEAKER) (test 109 meq/L 98-107 gtvl=844) CO2 (BEAKER) (test 21 meq/L 22-29 ekbr=821) BLOOD UREA NITROGEN 16 mg/dL 7-21 (BEAKER) (test gpjn=411) CREATININE (BEAKER) (test 1.14 mg/dL 0.57-1.25 Specimen slightly ngea=372) hemolyzed GLUCOSE RANDOM (BEAKER) 262 mg/dL 70-105 (test qslb=132) CALCIUM (BEAKER) (test 9.6 mg/dL 8.4-10.2 ruxv=102) EGFR (BEAKER) (test 67 mL/min/1.73 sq m ESTIMATED GFR IS NOT zgiy=4257) ACCURATE CREATININE CLEARANCE IN PREDICTING GLOMERULAR FILTRATION RATE. ESTIMATED GFR IS NOT APPLICABLE FOR DIALYSIS PATIENTS. LACTIC ACID, ARTERIAL, WHOLE [id number] 16:16:00 Test Item Value Reference Range Comments LACTATE BLOOD ARTERIAL (2) 6.1 mmol/L 0.5-2.2 Specimen slightly hemolyzed (BEAKER) (test sivc=6957) Effective 09/27/2015: Units/Reference Range ChangeNew: 0.5-2.2 mmol/L Previous: 5 -20 mg/[id number] 16:12:00 Test Item Value Reference Range Comments FIBRINOGEN LEVEL (BEAKER) (test gngc=101) 238 mg/dl 225-434 [id number] 16:12:00 Test Item Value Reference Range Comments PARTIAL THROMBOPLASTIN TIME (BEAKER) (test 35.2 seconds 22.5-36.0 vpqu=098) CBC W/PLT COUNT & AUTO [id number] 16:12:00 Test Item Value Reference Range Comments WHITE BLOOD CELL COUNT (BEAKER) (test exqb=212) 16.8 K/ L 3.5-10.5 RED BLOOD CELL COUNT (BEAKER) (test ibsr=685) 3.35 M/ L 4.63-6.08 HEMOGLOBIN (BEAKER) (test pmwv=674) 9.6 GM/DL 13.7-17.5 HEMATOCRIT (BEAKER) (test zxws=763) 28.4 % 40.1-51.0 MEAN CORPUSCULAR VOLUME (BEAKER) (test xskr=521) 84.8 fL 79.0-92.2 MEAN CORPUSCULAR HEMOGLOBIN (BEAKER) (test 28.7 pg 25.7-32.2 imgh=930) MEAN CORPUSCULAR HEMOGLOBIN CONC (BEAKER) (test 33.8 GM/DL 32.3-36.5 smdb=316) RED CELL DISTRIBUTION WIDTH (BEAKER) (test 14.0 % 11.6-14.4 jpts=371) PLATELET COUNT (BEAKER) (test polx=554) 182 K/CU MM 150-450 MEAN PLATELET VOLUME (BEAKER) (test inom=592) 11.4 fL 9.4-12.4 NUCLEATED RED BLOOD CELLS (BEAKER) (test 0 /100 WBC 0-0 vczq=505) NEUTROPHILS RELATIVE PERCENT (BEAKER) (test 80 % macd=320) LYMPHOCYTES RELATIVE PERCENT (BEAKER) (test 10 % rqhu=996) MONOCYTES RELATIVE PERCENT (BEAKER) (test 9 % jtli=738) EOSINOPHILS RELATIVE PERCENT (BEAKER) (test 0 % ircj=556) BASOPHILS RELATIVE PERCENT (BEAKER) (test 0 % dqed=775) NEUTROPHILS ABSOLUTE COUNT (BEAKER) (test 13.52 K/ L 1.78-5.38 liux=791) LYMPHOCYTES ABSOLUTE COUNT (BEAKER) (test 1.62 K/ L 1.32-3.57 kvmb=805) MONOCYTES ABSOLUTE COUNT (BEAKER) (test 1.46 K/ L 0.30-0.82 smow=034) EOSINOPHILS ABSOLUTE COUNT (BEAKER) (test 0.04 K/ L 0.04-0.54 scdd=576) BASOPHILS ABSOLUTE COUNT (BEAKER) (test 0.05 K/ L 0.01-0.08 doub=764) IMMATURE GRANULOCYTES-RELATIVE PERCENT (BEAKER) 1 % 0-1 (test izxk=9353) PROTHROMBIN [id number] 16:11:00 Test Item Value Reference Range Comments PROTIME (BEAKER) (test ruuw=292) 16.6 seconds 11.7-14.7 INR (BEAKER) (test hqdz=887) 1.3 <=5.9 RECOMMENDED COUMADIN/WARFARIN INR THERAPY RANGESSTANDARD DOSE: 2.0 - 3.0 Includes: PROPHYLAXIS forvenous thrombosis, systemic embolization; TREATMENT for venous thrombosis and/or pulmonary embolus.HIGH RISK: Target INR is 2.5-3.5 for patients with mechanical heart valves.BLOOD GAS, [id number] 15:59:00 Test Item Value Reference Range Comments PH ARTERIAL (BEAKER) (test gjqs=740) 7.32 7.35-7.45 PCO2 ARTERIAL (BEAKER) (test qnjr=571) 46 mmHg 35-45 PO2 ARTERIAL (BEAKER) (test vjne=064) 85 mmHg 80-90 O2 SATURATION ARTERIAL (BEAKER) (test lbaf=245) 95.5 % 96.0-97.0 HCO3 ARTERIAL (BEAKER) (test haqs=260) 23 mmol/L 21-29 BASE EXCESS ARTERIAL (BEAKER) (test jyey=583) -3.4 mmol/L -2.0-3.0 PATIENT TEMPERATURE (BEAKER) (test ktzo=3109) 37.0 C POTASSIUM-STAT [id number] 15:59:00 Test Item Value Reference Range Comments POTASSIUM (BEAKER) (test rbyu=751) 3.4 meq/L 3.6-5.5 GLUCOSE-STAT [id number] 15:59:00 Test Item Value Reference Range Comments GLUCOSE RANDOM (BEAKER) (test bpov=636) 255 mg/dL 70-110 HEMOGLOBIN-STAT [id number] 15:59:00 Test Item Value Reference Range Comments HEMOGLOBIN (BEAKER) (test tmqv=881) 10.4 g/dL 13.0-16.8 HGB/HCT (H&H) - STAT [id number] 15:59:00 Test Item Value Reference Range Comments HEMOGLOBIN (BEAKER) (test wwiw=574) 10.4 GM/DL 13.0-16.8 HEMATOCRIT (BEAKER) (test nehc=524) 31.0 % 40.0-50.0 CALCIUM, [id number] 15:59:00 Test Item Value Reference Range Comments CALCIUM IONIZED (BEAKER) (test wjbo=128) 1.21 mmol/L 1.12-1.27 PH, BLOOD (BEAKER) (test eisv=8188) 7.32 SODIUM NA-STAT [id number] 15:58:00 Test Item Value Reference Range Comments SODIUM (BEAKER) (test pwdz=404) 138 meq/L 135-148 OXYGEN SATURATION, [id number] 15:58:00 Test Item Value Reference Range Comments O2 SATURATION (MEASURED) (BEAKER) (test hpzn=0907) 64.0 % [id number] 15:10:00 Test Item Value Reference Range Comments ACTIVATED CLOTTING TIME 114 sec TESTED AT [address] (BEAKER) (test vvaf=998) [place] [id number] 15:10:00 Test Item Value Reference Range Comments ACTIVATED CLOTTING TIME 450 sec TESTED AT [place] [address] [facility] (BEAKER) (test sgzh=498) [place] [address] [id number] 15:10:00 Test Item Value Reference Range Comments ACTIVATED CLOTTING TIME 532 sec TESTED AT [place] [address] [facility] (BEAKER) (test lfku=720) [place] [address] [id number] 15:10:00 Test Item Value Reference Range Comments ACTIVATED CLOTTING TIME 472 sec TESTED AT [facility] [address] (BEAKER) (test prgk=127) [place] [address] [id number] 15:10:00 Test Item Value Reference Range Comments ACTIVATED CLOTTING TIME 494 sec TESTED AT [place] [address] [address] (BEAKER) (test lbnr=670) [place] [address] [id number] 15:10:00 Test Item Value Reference Range Comments ACTIVATED CLOTTING TIME 389 sec TESTED AT [place] [address] [facility] (BEAKER) (test fhtg=634) [place] [address] [id number] 15:10:00 Test Item Value Reference Range Comments ACTIVATED CLOTTING TIME 461 sec TESTED AT [place] [address] [address] (BEAKER) (test advx=638) [place] [address] THROMBOELASTOGRAPH ([id number] 14:36:00 Test Item Value Reference Range Comments TEG ACTIVATED CLOTTING TIME (BEAKER) (test 5.1 minutes 4.0-7.0 pazy=1692) TEG FIBRINOGEN ACTIVITY (BEAKER) (test 69.4 degrees 61.0-73.0 ktdr=5137) TEG PLT. AGGREGATION (BEAKER) (test zafm=7408) 54.2 MM 55.0-65.0 TGH ACTIVATED CLOTTING TIME (BEAKER) (test 5.2 minutes 4.0-7.0 nrxr=5348) [facility]GH FIBRINOGEN ACTIVITY (BEAKER) (test 77.3 degrees 61.0-73.0 aald=9542) TGH PLT. AGGREGATION (BEAKER) (test rpix=7219) 64.1 MM 55.0-65.0 CALCIUM, [id number] 14:31:00 Test Item Value Reference Range Comments CALCIUM IONIZED (BEAKER) (test rtvl=507) 1.39 mmol/L 1.12-1.27 PH, BLOOD (BEAKER) (test kzyb=7458) 7.30 BLOOD GAS, [id number] 14:30:00 Test Item Value Reference Range Comments PH ARTERIAL (BEAKER) (test bzrv=131) 7.31 7.35-7.45 PCO2 ARTERIAL (BEAKER) (test bwxz=965) 45 mmHg 35-45 PO2 ARTERIAL (BEAKER) (test dfys=811) 112 mmHg 80-90 O2 SATURATION ARTERIAL (BEAKER) (test lxgd=404) 97.7 % 96.0-97.0 HCO3 ARTERIAL (BEAKER) (test ysme=338) 22 mmol/L 21-29 BASE EXCESS ARTERIAL (BEAKER) (test uzrh=308) -4.4 mmol/L -2.0-3.0 PATIENT TEMPERATURE (BEAKER) (test auft=1812) 36.7 C FIO2 (BEAKER) (test nwwm=6442) 100.0 % POTASSIUM-STAT [id number] 14:30:00 Test Item Value Reference Range Comments POTASSIUM (BEAKER) (test hpts=539) 3.2 meq/L 3.6-5.5 GLUCOSE-STAT [id number] 14:30:00 Test Item Value Reference Range Comments GLUCOSE RANDOM (BEAKER) (test goai=055) 294 mg/dL 70-110 HGB/HCT (H&H) - STAT [id number] 14:30:00 Test Item Value Reference Range Comments HEMOGLOBIN (BEAKER) (test ulxh=974) 10.8 g/dL 13.0-16.8 HEMATOCRIT (BEAKER) (test grkh=452) 32.0 % 40.0-50.0 SODIUM NA-STAT [id number] 14:29:00 Test Item Value Reference Range Comments SODIUM (BEAKER) (test zien=957) 135 meq/L 135-148 PLATELET [id number] 14:12:00 Test Item Value Reference Range Comments PLATELET COUNT (BEAKER) (test jdnn=125) 242 K/CU MM 150-450 PROTHROMBIN [id number] 14:05:00 Test Item Value Reference Range Comments PROTIME (BEAKER) (test gbbv=482) 19.3 seconds 11.7-14.7 INR (BEAKER) (test jbmf=603) 1.6 <=5.9 RECOMMENDED COUMADIN/WARFARIN INR THERAPY RANGESSTANDARD DOSE: 2.0 - 3.0 Includes: PROPHYLAXIS forvenous thrombosis, systemic embolization; TREATMENT for venous thrombosis and/or pulmonary embolus.HIGH RISK: Target INR is 2.5-3.5 for patients with mechanical heart valves.[id number] 14:05:00 Test Item Value Reference Range Comments FIBRINOGEN LEVEL (BEAKER) (test erys=375) 224 mg/dl 225-434 [id number] 14:05:00 Test Item Value Reference Range Comments PARTIAL THROMBOPLASTIN TIME (BEAKER) (test 32.5 seconds 22.5-36.0 lsas=511) HGB/HCT (H&H) - STAT [id number] 13:54:00 Test Item Value Reference Range Comments HEMOGLOBIN (BEAKER) (test ybiy=369) 10.3 g/dL 13.0-16.8 HEMATOCRIT (BEAKER) (test knoa=328) 30.0 % 40.0-50.0 BLOOD GAS, [id number] 13:52:00 Test Item Value Reference Range Comments PH ARTERIAL (BEAKER) (test zaht=503) 7.32 7.35-7.45 PCO2 ARTERIAL (BEAKER) (test mcvj=879) 45 mmHg 35-45 PO2 ARTERIAL (BEAKER) (test yhjm=892) 101 mmHg 80-90 O2 SATURATION ARTERIAL (BEAKER) (test mnes=956) 97.3 % 96.0-97.0 HCO3 ARTERIAL (BEAKER) (test iezg=832) 23 mmol/L 21-29 BASE EXCESS ARTERIAL (BEAKER) (test aylw=452) -3.7 mmol/L -2.0-3.0 PATIENT TEMPERATURE (BEAKER) (test kocw=4126) 36.5 C FIO2 (BEAKER) (test oloa=9685) 100.0 % SODIUM NA-STAT [id number] 13:52:00 Test Item Value Reference Range Comments SODIUM (BEAKER) (test rsht=031) 134 meq/L 135-148 POTASSIUM-STAT [id number] 13:52:00 Test Item Value Reference Range Comments POTASSIUM (BEAKER) (test pfoq=615) 3.3 meq/L 3.6-5.5 GLUCOSE-STAT [id number] 13:52:00 Test Item Value Reference Range Comments GLUCOSE RANDOM (BEAKER) (test hqsv=669) 352 mg/dL 70-110 CALCIUM, [id number] 13:52:00 Test Item Value Reference Range Comments CALCIUM IONIZED (BEAKER) (test ygte=907) 1.10 mmol/L 1.12-1.27 PH, BLOOD (BEAKER) (test ensl=4509) 7.31 POTASSIUM-STAT [id number] 13:19:00 Test Item Value Reference Range Comments POTASSIUM (BEAKER) (test idaf=799) 4.5 meq/L 3.6-5.5 BLOOD GAS, [id number] 13:19:00 Test Item Value Reference Range Comments PH ARTERIAL (BEAKER) (test wmak=005) 7.32 7.35-7.45 PCO2 ARTERIAL (BEAKER) (test umhq=879) 45 mmHg 35-45 PO2 ARTERIAL (BEAKER) (test mokm=519) 60 mmHg 80-90 O2 SATURATION ARTERIAL (BEAKER) (test ibxc=094) 89.8 % 96.0-97.0 HCO3 ARTERIAL (BEAKER) (test fkkt=951) 23 mmol/L 21-29 BASE EXCESS ARTERIAL (BEAKER) (test ottz=908) -3.2 mmol/L -2.0-3.0 PATIENT TEMPERATURE (BEAKER) (test vzun=3317) 36.6 C FIO2 (BEAKER) (test znyq=3786) 100.0 % GLUCOSE-STAT [id number] 13:19:00 Test Item Value Reference Range Comments GLUCOSE RANDOM (BEAKER) (test vgdm=664) 349 mg/dL 70-110 SODIUM NA-STAT [id number] 13:19:00 Test Item Value Reference Range Comments SODIUM (BEAKER) (test bbuu=865) 131 meq/L 135-148 HGB/HCT (H&H) - STAT [id number] 13:19:00 Test Item Value Reference Range Comments HEMOGLOBIN (BEAKER) (test hrkl=676) 8.6 g/dL 13.0-16.8 HEMATOCRIT (BEAKER) (test kfnr=574) 25.0 % 40.0-50.0 BLOOD GAS, [id number] 12:47:00 Test Item Value Reference Range Comments PH ARTERIAL (BEAKER) (test zixb=863) 7.38 7.35-7.45 PCO2 ARTERIAL (BEAKER) (test eota=159) 43 mmHg 35-45 PO2 ARTERIAL (BEAKER) (test vnfd=662) 293 mmHg 80-90 O2 SATURATION ARTERIAL (BEAKER) (test mmvi=242) 99.7 % 96.0-97.0 HCO3 ARTERIAL (BEAKER) (test quuf=571) 25 mmol/L 21-29 BASE EXCESS ARTERIAL (BEAKER) (test dsut=718) -0.6 mmol/L -2.0-3.0 PATIENT TEMPERATURE (BEAKER) (test peuv=8024) 35.0 C FIO2 (BEAKER) (test xaqk=8659) 90.0 % GLUCOSE-STAT [id number] 12:47:00 Test Item Value Reference Range Comments GLUCOSE RANDOM (BEAKER) (test yclk=676) 386 mg/dL 70-110 SODIUM NA-STAT [id number] 12:47:00 Test Item Value Reference Range Comments SODIUM (BEAKER) (test nbhd=600) 129 meq/L 135-148 POTASSIUM-STAT [id number] 12:47:00 Test Item Value Reference Range Comments POTASSIUM (BEAKER) (test tzxm=598) 5.6 meq/L 3.6-5.5 HGB/HCT (H&H) - STAT [id number] 12:47:00 Test Item Value Reference Range Comments HEMOGLOBIN (BEAKER) (test qbri=702) 9.5 g/dL 13.0-16.8 HEMATOCRIT (BEAKER) (test head=430) 28.0 % 40.0-50.0 POTASSIUM-STAT [id number] 12:13:00 Test Item Value Reference Range Comments POTASSIUM (BEAKER) (test ihxv=387) 7.0 meq/L 3.6-5.5 SPECIMEN NOT HEMOLYZED BLOOD GAS, [id number] 12:12:00 Test Item Value Reference Range Comments PH ARTERIAL (BEAKER) (test ffff=925) 7.39 7.35-7.45 PCO2 ARTERIAL (BEAKER) (test xmfd=233) 39 mmHg 35-45 PO2 ARTERIAL (BEAKER) (test lbse=140) 228 mmHg 80-90 O2 SATURATION ARTERIAL (BEAKER) (test lsii=217) 99.5 % 96.0-97.0 HCO3 ARTERIAL (BEAKER) (test qpuv=695) 24 mmol/L 21-29 BASE EXCESS ARTERIAL (BEAKER) (test ccjb=075) -2.3 mmol/L -2.0-3.0 PATIENT TEMPERATURE (BEAKER) (test xanq=4628) 33.8 C FIO2 (BEAKER) (test xgjd=2926) 85.0 % SODIUM NA-STAT [id number] 12:12:00 Test Item Value Reference Range Comments SODIUM (BEAKER) (test avwc=639) 125 meq/L 135-148 GLUCOSE-STAT [id number] 12:12:00 Test Item Value Reference Range Comments GLUCOSE RANDOM (BEAKER) (test vgqt=225) 395 mg/dL 70-110 HGB/HCT (H&H) - STAT [id number] 12:12:00 Test Item Value Reference Range Comments HEMOGLOBIN (BEAKER) (test zcqk=632) 10.3 g/dL 13.0-16.8 HEMATOCRIT (BEAKER) (test dhec=857) 30.0 % 40.0-50.0 POTASSIUM-STAT [id number] 11:48:00 Test Item Value Reference Range Comments POTASSIUM (BEAKER) (test rawy=384) 6.4 meq/L 3.6-5.5 SPECIMEN NOT HEMOLYZED BLOOD GAS, [id number] 11:44:00 Test Item Value Reference Range Comments PH ARTERIAL (BEAKER) (test zhfo=246) 7.39 7.35-7.45 PCO2 ARTERIAL (BEAKER) (test frjg=213) 39 mmHg 35-45 PO2 ARTERIAL (BEAKER) (test ucht=199) 213 mmHg 80-90 O2 SATURATION ARTERIAL (BEAKER) (test kquj=462) 99.4 % 96.0-97.0 HCO3 ARTERIAL (BEAKER) (test jdjf=872) 24 mmol/L 21-29 BASE EXCESS ARTERIAL (BEAKER) (test sdfp=118) -2.0 mmol/L -2.0-3.0 PATIENT TEMPERATURE (BEAKER) (test qwlz=5711) 32.8 C FIO2 (BEAKER) (test odto=5047) 80.0 % SODIUM NA-STAT [id number] 11:44:00 Test Item Value Reference Range Comments SODIUM (BEAKER) (test rtsp=570) 126 meq/L 135-148 GLUCOSE-STAT [id number] 11:44:00 Test Item Value Reference Range Comments GLUCOSE RANDOM (BEAKER) (test inzt=306) 345 mg/dL 70-110 HGB/HCT (H&H) - STAT [id number] 11:44:00 Test Item Value Reference Range Comments HEMOGLOBIN (BEAKER) (test edcq=130) 10.1 g/dL 13.0-16.8 HEMATOCRIT (BEAKER) (test sjpn=691) 30.0 % 40.0-50.0 SODIUM NA-STAT [id number] 11:15:00 Test Item Value Reference Range Comments SODIUM (BEAKER) (test 123 meq/L 135-148 Discordant SODIUM result pzzv=990) Compared to previous result, Clinical correlation required. BLOOD GAS, [id number] 11:14:00 Test Item Value Reference Range Comments PH ARTERIAL (BEAKER) (test jtgd=488) 7.42 7.35-7.45 PCO2 ARTERIAL (BEAKER) (test dzjj=435) 32 mmHg 35-45 PO2 ARTERIAL (BEAKER) (test orsl=136) 229 mmHg 80-90 O2 SATURATION ARTERIAL (BEAKER) (test qezq=564) 99.5 % 96.0-97.0 HCO3 ARTERIAL (BEAKER) (test yidx=626) 21 mmol/L 21-29 BASE EXCESS ARTERIAL (BEAKER) (test msjv=091) -4.2 mmol/L -2.0-3.0 PATIENT TEMPERATURE (BEAKER) (test bcji=2330) 31.5 C FIO2 (BEAKER) (test zjfu=5206) 70.0 % GLUCOSE-STAT [id number] 11:14:00 Test Item Value Reference Range Comments GLUCOSE RANDOM (BEAKER) (test ckji=587) 320 mg/dL 70-110 HGB/HCT (H&H) - STAT [id number] 11:14:00 Test Item Value Reference Range Comments HEMOGLOBIN (BEAKER) (test 9.4 g/dL 13.0-16.8 Discordant HGB result Compared uxdp=450) to previous result, Clinical correlation required. HEMATOCRIT (BEAKER) (test 28.0 % 40.0-50.0 pxat=210) POTASSIUM-STAT [id number] 11:13:00 Test Item Value Reference Range Comments POTASSIUM (BEAKER) (test xquf=221) 5.3 meq/L 3.6-5.5 SODIUM NA-STAT [id number] 08:35:00 Test Item Value Reference Range Comments SODIUM (BEAKER) (test tjsz=048) 136 meq/L 135-148 POTASSIUM-STAT [id number] 08:35:00 Test Item Value Reference Range Comments POTASSIUM (BEAKER) (test dght=771) 3.8 meq/L 3.6-5.5 HGB/HCT (H&H) - STAT [id number] 08:35:00 Test Item Value Reference Range Comments HEMOGLOBIN (BEAKER) (test wysj=832) 13.9 g/dL 13.0-16.8 HEMATOCRIT (BEAKER) (test msna=049) 41.0 % 40.0-50.0 BLOOD GAS, [id number] 08:35:00 Test Item Value Reference Range Comments PH ARTERIAL (BEAKER) (test bgbs=105) 7.55 7.35-7.45 PCO2 ARTERIAL (BEAKER) (test yeoc=273) 30 mmHg 35-45 PO2 ARTERIAL (BEAKER) (test iqep=684) 251 mmHg 80-90 O2 SATURATION ARTERIAL (BEAKER) (test ryqa=050) 99.7 % 96.0-97.0 HCO3 ARTERIAL (BEAKER) (test saan=832) 26 mmol/L 21-29 BASE EXCESS ARTERIAL (BEAKER) (test fdhw=539) 3.1 mmol/L -2.0-3.0 PATIENT TEMPERATURE (BEAKER) (test juuo=4618) 34.2 C FIO2 (BEAKER) (test ebdc=6941) 100.0 % GLUCOSE-STAT [id number] 08:35:00 Test Item Value Reference Range Comments GLUCOSE RANDOM (BEAKER) (test dktz=013) 146 mg/dL 70-110 [id number] 06:03:00 Test Item Value Reference Range Comments PHOSPHORUS (BEAKER) (test lxeq=249) 2.8 mg/dL 2.3-4.7 [id number] 06:03:00 Test Item Value Reference Range Comments MAGNESIUM (BEAKER) (test zxwo=759) 2.5 mg/dL 1.6-2.6 BASIC METABOLIC [id number] 06:03:00 Test Item Value Reference Range Comments SODIUM (BEAKER) (test 137 meq/L 136-145 yfjr=438) POTASSIUM (BEAKER) (test 4.0 meq/L 3.5-5.1 fhti=359) CHLORIDE (BEAKER) (test 101 meq/L 98-107 rnio=576) CO2 (BEAKER) (test 27 meq/L 22-29 ljtm=943) BLOOD UREA NITROGEN 16 mg/dL 7-21 (BEAKER) (test ohvl=695) CREATININE (BEAKER) (test 1.10 mg/dL 0.57-1.25 jfkc=065) GLUCOSE RANDOM (BEAKER) 140 mg/dL 70-105 (test reaa=690) CALCIUM (BEAKER) (test 10.0 mg/dL 8.4-10.2 cmdd=697) EGFR (BEAKER) (test 70 mL/min/1.73 sq m ESTIMATED GFR IS NOT tzxr=3370) ACCURATE CREATININE CLEARANCE IN PREDICTING GLOMERULAR FILTRATION RATE. ESTIMATED GFR IS NOT APPLICABLE FOR DIALYSIS PATIENTS. CBC W/PLT COUNT & AUTO [id number] 05:44:00 Test Item Value Reference Range Comments WHITE BLOOD CELL COUNT (BEAKER) (test oiqi=496) 6.8 K/ L 3.5-10.5 RED BLOOD CELL COUNT (BEAKER) (test awni=476) 4.99 M/ L 4.63-6.08 HEMOGLOBIN (BEAKER) (test ptdf=275) 14.2 GM/DL 13.7-17.5 HEMATOCRIT (BEAKER) (test ikgd=307) 42.2 % 40.1-51.0 MEAN CORPUSCULAR VOLUME (BEAKER) (test sbit=682) 84.6 fL 79.0-92.2 MEAN CORPUSCULAR HEMOGLOBIN (BEAKER) (test 28.5 pg 25.7-32.2 vvmw=895) MEAN CORPUSCULAR HEMOGLOBIN CONC (BEAKER) (test 33.6 GM/DL 32.3-36.5 ropm=198) RED CELL DISTRIBUTION WIDTH (BEAKER) (test 13.8 % 11.6-14.4 wekw=410) PLATELET COUNT (BEAKER) (test tprs=771) 306 K/CU MM 150-450 MEAN PLATELET VOLUME (BEAKER) (test zlxw=614) 11.3 fL 9.4-12.4 NUCLEATED RED BLOOD CELLS (BEAKER) (test 0 /100 WBC 0-0 fmoe=972) NEUTROPHILS RELATIVE PERCENT (BEAKER) (test 57 % khgi=130) LYMPHOCYTES RELATIVE PERCENT (BEAKER) (test 30 % ajla=938) MONOCYTES RELATIVE PERCENT (BEAKER) (test 8 % rbto=685) EOSINOPHILS RELATIVE PERCENT (BEAKER) (test 4 % edpb=640) BASOPHILS RELATIVE PERCENT (BEAKER) (test 1 % gdxp=163) NEUTROPHILS ABSOLUTE COUNT (BEAKER) (test 3.85 K/ L 1.78-5.38 mrrc=057) LYMPHOCYTES ABSOLUTE COUNT (BEAKER) (test 2.05 K/ L 1.32-3.57 atqq=497) MONOCYTES ABSOLUTE COUNT (BEAKER) (test 0.53 K/ L 0.30-0.82 dtyw=572) EOSINOPHILS ABSOLUTE COUNT (BEAKER) (test 0.27 K/ L 0.04-0.54 jypm=522) BASOPHILS ABSOLUTE COUNT (BEAKER) (test 0.06 K/ L 0.01-0.08 sxjs=949) IMMATURE GRANULOCYTES-RELATIVE PERCENT (BEAKER) 0 % 0-1 (test jqcb=8422) POCT-GLUCOSE [id number] 21:00:00 Test Item Value Reference Range Comments POC-GLUCOSE METER (BEAKER) 176 mg/dL 70-110 TESTED AT [address] (test dien=0367) [place] [address] RAD, CHEST, 2 [id number] 20:30:00Reason for exam:->pre opFINAL REPORT Chest 2 views 10/27/2017 8:29 PM CLINICAL HISTORY: Preoperative evaluation COMPARISON: 10/12/2014 FINDINGS: The lungs are clear, save for bibasilar linear atelectasis. Cardiomediastinal contours are within normal limits. The central pulmonary vasculature is not engorged. The visualized skeleton is intact. IMPRESSION: No acute radiographic abnormalities. Signed: Burak Lemus Verified Date/Time: 10/27/2017 20:30:07 Reading Location: [facility] Radiology Reading Room POCT-GLUCOSE [id number] 17 :35:00 Test Item Value Reference Range Comments POC-GLUCOSE METER (BEAKER) 178 mg/dL 70-110 TESTED AT [address] (test cqux=6653) [place] [address] HEPATITIS B SURFACE [id number] 15:53:00 Test Item Value Reference Range Comments HEPATITIS B SURFACE ANTIBODY (BEAKER) (test < mIU/mL <8.0 sjmm=678) HEPATITIS B SURFACE [id number] 15:50:00 Test Item Value Reference Range Comments HEPATITIS B SURFACE ANTIGEN (2) (BEAKER) (test Nonreactive Nonreactive nnvo=2757) HEPATITIS C [id number] 15:50:00 Test Item Value Reference Range Comments HEPATITIS C ANTIBODY (BEAKER) (test hjpb=623) Nonreactive Nonreactive HEPATITIS B CORE ANTIBODY, [id number] 15:50:00 Test Item Value Reference Range Comments HEPATITIS B CORE TOTAL ANTIBODY (BEAKER) (test Nonreactive Nonreactive avdi=326) HIV-1 ANTIGEN WITH HIV-1/2 [id number] 15:50:00 Test Item Value Reference Range Comments HIV-1 ANTIGEN WITH HIV 1\T\2 ANTIBODY (2) Nonreactive Nonreactive (BEAKER) (test bztn=5483) [id number] 15:44:00 Test Item Value Reference Range Comments COL/EPI CLOSURE TIME (BEAKER) (test tzee=8548) 193 Seconds 78-191 COL/ADP CLOSURE TIME (BEAKER) (test isen=1316) 158 Seconds 43-122 PLATELET COUNT AGG (BEAKER) (test vrph=6268) 315 K/CU MM 150-450 for patients on aspirin in past 2 weeksPOCT-GLUCOSE [id number] 11:59:00 Test Item Value Reference Range Comments POC-GLUCOSE METER (BEAKER) 162 mg/dL 70-110 TESTED AT [address] (test tmoq=3502) [facility] [address] POCT-GLUCOSE [id number] 07:08:00 Test Item Value Reference Range Comments POC-GLUCOSE METER (BEAKER) 248 mg/dL 70-110 TESTED AT [address] (test pyyq=2658) [facility] [address] THROMBOELASTOGRAPH ([id number] 06:16:00 Test Item Value Reference Range Comments TEG ACTIVATED CLOTTING TIME (BEAKER) (test 6.3 minutes 4.0-7.0 orst=2800) TEG FIBRINOGEN ACTIVITY (BEAKER) (test 73.1 degrees 61.0-73.0 pyps=4377) TEG PLT. AGGREGATION (BEAKER) (test htef=4208) 68.2 MM 55.0-65.0 TEG FIBRINOLYSIS (BEAKER) (test zojt=1358) 25.0 % 0.0-5.0 TGH ACTIVATED CLOTTING TIME (BEAKER) (test 6.7 minutes 4.0-7.0 iiji=0940) TGH FIBRINOGEN ACTIVITY (BEAKER) (test 71.5 degrees 61.0-73.0 uexj=5861) TGH PLT. AGGREGATION (BEAKER) (test gnig=3933) 64.8 MM 55.0-65.0 TGH FIBRINOLYSIS (BEAKER) (test bcki=3350) 0.0 % 0.0-5.0 HEPATIC FUNCTION [id number] 05:46:00 Test Item Value Reference Range Comments TOTAL PROTEIN (BEAKER) (test 7.4 gm/dL 6.0-8.3 Specimen slightly hemolyzed noiq=839) ALBUMIN (BEAKER) (test 4.1 g/dL 3.5-5.0 Specimen slightly hemolyzed kkeq=6425) BILIRUBIN TOTAL (BEAKER) (test 0.8 mg/dL 0.2-1.2 Specimen slightly hemolyzed hiey=446) BILIRUBIN DIRECT (BEAKER) (test 0.1 mg/dL 0.1-0.5 Specimen slightly hemolyzed zjkw=402) ALKALINE PHOSPHATASE (BEAKER) 96 U/L 40-150 (test tlug=308) AST (SGOT) (BEAKER) (test 39 U/L 5-34 Specimen slightly hemolyzed vcgh=584) ALT (SGPT) (BEAKER) (test 69 U/L 6-55 Specimen slightly hemolyzed drfb=571) Specimen moderately lipemicPROTHROMBIN [id number] 05:40:00 Test Item Value Reference Range Comments PROTIME (BEAKER) (test xvng=724) 13.4 seconds 11.7-14.7 INR (BEAKER) (test wbwi=206) 1.0 <=5.9 RECOMMENDED COUMADIN/WARFARIN INR THERAPY RANGESSTANDARD DOSE: 2.0 - 3.0 Includes: PROPHYLAXIS forvenous thrombosis, systemic embolization; TREATMENT for venous thrombosis and/or pulmonary embolus.HIGH RISK: Target INR is 2.5-3.5 for patients with mechanical heart valves.CBC W/PLT COUNT & AUTO [id number] 05:13:00 Test Item Value Reference Range Comments WHITE BLOOD CELL COUNT (BEAKER) (test huby=600) 7.0 K/ L 3.5-10.5 RED BLOOD CELL COUNT (BEAKER) (test tisg=080) 4.78 M/ L 4.63-6.08 HEMOGLOBIN (BEAKER) (test iqqf=894) 13.8 GM/DL 13.7-17.5 HEMATOCRIT (BEAKER) (test ougt=834) 39.5 % 40.1-51.0 MEAN CORPUSCULAR VOLUME (BEAKER) (test zcpl=383) 82.6 fL 79.0-92.2 MEAN CORPUSCULAR HEMOGLOBIN (BEAKER) (test 28.9 pg 25.7-32.2 reyv=262) MEAN CORPUSCULAR HEMOGLOBIN CONC (BEAKER) (test 34.9 GM/DL 32.3-36.5 xvon=507) RED CELL DISTRIBUTION WIDTH (BEAKER) (test 13.6 % 11.6-14.4 yyil=268) PLATELET COUNT (BEAKER) (test jyac=881) 297 K/CU MM 150-450 MEAN PLATELET VOLUME (BEAKER) (test jrsc=579) 11.3 fL 9.4-12.4 NUCLEATED RED BLOOD CELLS (BEAKER) (test 0 /100 WBC 0-0 tuxs=698) NEUTROPHILS RELATIVE PERCENT (BEAKER) (test 61 % pahv=720) LYMPHOCYTES RELATIVE PERCENT (BEAKER) (test 25 % txpt=053) MONOCYTES RELATIVE PERCENT (BEAKER) (test 8 % kbzu=952) EOSINOPHILS RELATIVE PERCENT (BEAKER) (test 4 % jffm=294) BASOPHILS RELATIVE PERCENT (BEAKER) (test 1 % ejej=677) NEUTROPHILS ABSOLUTE COUNT (BEAKER) (test 4.30 K/ L 1.78-5.38 tvns=034) LYMPHOCYTES ABSOLUTE COUNT (BEAKER) (test 1.75 K/ L 1.32-3.57 cjno=997) MONOCYTES ABSOLUTE COUNT (BEAKER) (test 0.56 K/ L 0.30-0.82 qxtb=362) EOSINOPHILS ABSOLUTE COUNT (BEAKER) (test 0.29 K/ L 0.04-0.54 shbs=380) BASOPHILS ABSOLUTE COUNT (BEAKER) (test 0.06 K/ L 0.01-0.08 rgof=938) IMMATURE GRANULOCYTES-RELATIVE PERCENT (BEAKER) 1 % 0-1 (test mval=0632) POCT-GLUCOSE [id number] 21:40:00 Test Item Value Reference Range Comments POC-GLUCOSE METER (BEAKER) 162 mg/dL 70-110 TESTED AT [address] (test cqfz=8726) [facility] [address] POCT-GLUCOSE [id number] 17:09:00 Test Item Value Reference Range Comments POC-GLUCOSE METER (BEAKER) 202 mg/dL 70-110 TESTED AT [address] (test gejv=7794) [facility] [address] POCT-GLUCOSE [id number] 12:00:00 Test Item Value Reference Range Comments POC-GLUCOSE METER (BEAKER) 191 mg/dL 70-110 TESTED AT [address] (test icfm=2730) [facility] [address] POCT-GLUCOSE [id number] 07:50:00 Test Item Value Reference Range Comments POC-GLUCOSE METER (BEAKER) 196 mg/dL 70-110 TESTED AT [address] (test vtou=0212) [facility] [address] [id number] 06:28:00 Test Item Value Reference Range Comments MAGNESIUM (BEAKER) (test 2.1 mg/dL 1.6-2.6 Specimen slightly hemolyzed wkub=874) [id number] 06:28:00 Test Item Value Reference Range Comments PHOSPHORUS (BEAKER) (test 2.7 mg/dL 2.3-4.7 Specimen slightly hemolyzed uzfx=104) BASIC METABOLIC [id number] 06:28:00 Test Item Value Reference Range Comments SODIUM (BEAKER) (test 135 meq/L 136-145 rgfd=554) POTASSIUM (BEAKER) (test 4.3 meq/L 3.5-5.1 Specimen slightly jvaw=701) hemolyzed CHLORIDE (BEAKER) (test 101 meq/L 98-107 pfog=623) CO2 (BEAKER) (test 24 meq/L 22-29 zwnz=958) BLOOD UREA NITROGEN 17 mg/dL 7-21 (BEAKER) (test zcbd=381) CREATININE (BEAKER) (test 1.00 mg/dL 0.57-1.25 Specimen slightly vxiy=368) hemolyzed GLUCOSE RANDOM (BEAKER) 250 mg/dL 70-105 (test tvgx=783) CALCIUM (BEAKER) (test 9.5 mg/dL 8.4-10.2 dthf=424) EGFR (BEAKER) (test 78 mL/min/1.73 sq m ESTIMATED GFR IS NOT bsmi=4691) ACCURATE CREATININE CLEARANCE IN PREDICTING GLOMERULAR FILTRATION RATE. ESTIMATED GFR IS NOT APPLICABLE FOR DIALYSIS PATIENTS. POCT-GLUCOSE [id number] 21:41:00 Test Item Value Reference Range Comments POC-GLUCOSE METER (BEAKER) 209 mg/dL 70-110 TESTED AT [address] (test xvye=6581) [place] [id number] POCT-GLUCOSE [id number] 17:08:00 Test Item Value Reference Range Comments POC-GLUCOSE METER (BEAKER) 175 mg/dL 70-110 TESTED AT [address] (test pqhv=6272) [place] [id number] POCT-GLUCOSE [id number] 11:59:00 Test Item Value Reference Range Comments POC-GLUCOSE METER (BEAKER) 145 mg/dL 70-110 TESTED AT [address] (test vdtu=8407) [place] [id number] POCT-GLUCOSE [id number] 08:20:00 Test Item Value Reference Range Comments POC-GLUCOSE METER (BEAKER) 167 mg/dL 70-110 TESTED AT [address] (test tzce=2990) [facility] [address] POCT-GLUCOSE [id number] 21:47:00 Test Item Value Reference Range Comments POC-GLUCOSE METER (BEAKER) 237 mg/dL 70-110 TESTED AT [address] (test iyft=4618) [facility] [address] POCT-GLUCOSE [id number] 18:30:00 Test Item Value Reference Range Comments POC-GLUCOSE METER (BEAKER) 186 mg/dL 70-110 TESTED AT [address] (test geja=6441) [place] [id number] POCT-GLUCOSE [id number] 11:46:00 Test Item Value Reference Range Comments POC-GLUCOSE METER (BEAKER) 192 mg/dL 70-110 TESTED AT [address] (test oiua=3944) [place] [id number] POCT-GLUCOSE [id number] 07:52:00 Test Item Value Reference Range Comments POC-GLUCOSE METER (BEAKER) 154 mg/dL 70-110 TESTED AT [facility] [address] (test bscx=2615) [facility] [address] [id number] 06:10:00 Test Item Value Reference Range Comments PHOSPHORUS (BEAKER) (test gqwm=578) 4.2 mg/dL 2.3-4.7 [id number] 06:10:00 Test Item Value Reference Range Comments MAGNESIUM (BEAKER) (test iirz=138) 2.1 mg/dL 1.6-2.6 BASIC METABOLIC [id number] 06:10:00 Test Item Value Reference Range Comments SODIUM (BEAKER) (test 136 meq/L 136-145 svoy=355) POTASSIUM (BEAKER) (test 4.4 meq/L 3.5-5.1 ixfk=704) CHLORIDE (BEAKER) (test 103 meq/L 98-107 chsp=247) CO2 (BEAKER) (test 24 meq/L 22-29 rfex=060) BLOOD UREA NITROGEN 15 mg/dL 7-21 (BEAKER) (test llnx=174) CREATININE (BEAKER) (test 0.96 mg/dL 0.57-1.25 iryq=840) GLUCOSE RANDOM (BEAKER) 165 mg/dL 70-105 (test bxhd=820) CALCIUM (BEAKER) (test 9.0 mg/dL 8.4-10.2 benn=509) EGFR (BEAKER) (test 82 mL/min/1.73 sq m ESTIMATED GFR IS NOT kvrx=7677) ACCURATE CREATININE CLEARANCE IN PREDICTING GLOMERULAR FILTRATION RATE. ESTIMATED GFR IS NOT APPLICABLE FOR DIALYSIS PATIENTS. LIPID [id number] 06:10:00 Test Item Value Reference Range Comments TRIGLYCERIDES (BEAKER) (test oyfr=821) 794 mg/dL CHOLESTEROL (BEAKER) (test vbwk=725) 232 mg/dL HDL CHOLESTEROL (BEAKER) (test seui=535) 26 mg/dL Calculated LDL not valid if triglyceride >400 mg/dLTriglyceride Reference Range: Low Risk <150 Borderline 150-199 High Risk 200-499 Very High Risk >=500Cholesterol Reference Range: Low Risk <200 Borderline 200-239 High Risk >240HDL Cholesterol Reference Range: Low Risk >=60 High Risk <40LDL Cholesterol ReferenceRange: Optimal <100 Near Optimal 100-129 Borderline 130-159 High 160-189 Very High >=190CBC W/PLT COUNT & amp; AUTO [id number] 05:22:00 Test Item Value Reference Range Comments WHITE BLOOD CELL COUNT (BEAKER) (test seov=767) 7.7 K/ L 3.5-10.5 RED BLOOD CELL COUNT (BEAKER) (test ruvi=244) 5.02 M/ L 4.63-6.08 HEMOGLOBIN (BEAKER) (test pxiq=984) 14.0 GM/DL 13.7-17.5 HEMATOCRIT (BEAKER) (test eruo=330) 43.2 % 40.1-51.0 MEAN CORPUSCULAR VOLUME (BEAKER) (test qxgd=184) 86.1 fL 79.0-92.2 MEAN CORPUSCULAR HEMOGLOBIN (BEAKER) (test 27.9 pg 25.7-32.2 gpvc=778) MEAN CORPUSCULAR HEMOGLOBIN CONC (BEAKER) (test 32.4 GM/DL 32.3-36.5 pcth=182) RED CELL DISTRIBUTION WIDTH (BEAKER) (test 13.9 % 11.6-14.4 dcay=387) PLATELET COUNT (BEAKER) (test jivz=764) 285 K/CU MM 150-450 MEAN PLATELET VOLUME (BEAKER) (test kqms=793) 11.5 fL 9.4-12.4 NUCLEATED RED BLOOD CELLS (BEAKER) (test 0 /100 WBC 0-0 gwlv=568) NEUTROPHILS RELATIVE PERCENT (BEAKER) (test 65 % vsnr=837) LYMPHOCYTES RELATIVE PERCENT (BEAKER) (test 23 % oizy=589) MONOCYTES RELATIVE PERCENT (BEAKER) (test 7 % nxbw=044) EOSINOPHILS RELATIVE PERCENT (BEAKER) (test 3 % ujms=440) BASOPHILS RELATIVE PERCENT (BEAKER) (test 1 % mumy=309) NEUTROPHILS ABSOLUTE COUNT (BEAKER) (test 4.99 K/ L 1.78-5.38 iolb=345) LYMPHOCYTES ABSOLUTE COUNT (BEAKER) (test 1.78 K/ L 1.32-3.57 odip=874) MONOCYTES ABSOLUTE COUNT (BEAKER) (test 0.56 K/ L 0.30-0.82 lhfw=639) EOSINOPHILS ABSOLUTE COUNT (BEAKER) (test 0.22 K/ L 0.04-0.54 wufb=111) BASOPHILS ABSOLUTE COUNT (BEAKER) (test 0.10 K/ L 0.01-0.08 syzs=237) IMMATURE GRANULOCYTES-RELATIVE PERCENT (BEAKER) 1 % 0-1 (test wxpe=1021) POCT-GLUCOSE [id number] 20:54:00 Test Item Value Reference Range Comments POC-GLUCOSE METER (BEAKER) 331 mg/dL 70-110 Patient on insulin Drip/TESTED (test idwq=2366) AT [place] [address] POCT-GLUCOSE [id number] 17:09:00 Test Item Value Reference Range Comments POC-GLUCOSE METER (BEAKER) 137 mg/dL 70-110 TESTED AT [address] (test fafm=9694) [place] [address] CREATINE KINASE (CK), TOTAL AND [id number] 15:08:00 Test Item Value Reference Range Comments CREATINE KINASE TOTAL (BEAKER) (test ooyo=838) 32 U/L 29-200 CREATINE KINASE-MB (BEAKER) (test lmfr=459) 0.9 ng/mL 0.0-6.6 CREATINE KINASE-MB INDEX (BEAKER) (test ahzt=395) 2.8 % CK-MB Reference Range:<6.7 Normal6.7-10.0 Borderline>10.0 AbnormalTROPONIN [id number] 15:08:00 Test Item Value Reference Range Comments TROPONIN I (BEAKER) (test lsiy=899) 0.04 ng/mL 0.00-0.03 Troponin I (TnI) levels [...] acidosis, acute neurological disease, and persistent tachyarrhythmia.POCT-GLUCOSE [id number] 12:32:00 Test Item Value Reference Range Comments POC-GLUCOSE METER (BEAKER) 197 mg/dL 70-110 TESTED AT [address] (test dvmi=9676) [place] [address] TROPONIN [id number] 10:10:00 Test Item Value Reference Range Comments TROPONIN I (BEAKER) (test txbl=471) 0.05 ng/mL 0.00-0.03 Troponin I (TnI) levels [...] acidosis, acute neurological disease, and persistent tachyarrhythmia.HEMOGLOBIN [id number] 10:08:00 Test Item Value Reference Range Comments HEMOGLOBIN A1C (VANESSAAKER) (test kogx=338) 9.1 % 4.3-6.1 CREATINE KINASE (CK)2017-10-23 10:04:00 Test Item Value Reference Range Comments CREATINE KINASE TOTAL (BEAKER) (test rfkv=788) 36 U/L 29-200 POCT-GLUCOSE [id number] 08:19:00 Test Item Value Reference Range Comments POC-GLUCOSE METER (IntiguaAKER) 184 mg/dL 70-110 TESTED AT [address] (test eevj=8751) [facility] [address] TROPONIN [id number] 05:43:00 Test Item Value Reference Range Comments TROPONIN I (BEAKER) (test njey=945) 0.07 ng/mL 0.00-0.03 Troponin I (TnI) levels [...] acidosis, acute neurological disease, and persistent tachyarrhythmia.TROPONIN [id number] 05:36:00 Test Item Value Reference Range Comments TROPONIN I (BEAKER) (test cqwo=844) 0.06 ng/mL 0.00-0.03 Troponin I (TnI) levels [...] failure, acidosis, acute neurological disease, and persistent tachyarrhythmia.[id number] 05:35:00 Test Item Value Reference Range Comments PHOSPHORUS (BEAKER) (test hqdl=256) 3.5 mg/dL 2.3-4.7 [id number] 05:35:00 Test Item Value Reference Range Comments MAGNESIUM (BEAKER) (test sham=240) 2.1 mg/dL 1.6-2.6 BASIC METABOLIC [id number] 05:35:00 Test Item Value Reference Range Comments SODIUM (BEAKER) (test 138 meq/L 136-145 goyv=969) POTASSIUM (BEAKER) (test 3.7 meq/L 3.5-5.1 bogu=757) CHLORIDE (BEAKER) (test 104 meq/L 98-107 ebrg=939) CO2 (BEAKER) (test 25 meq/L 22-29 pdkt=154) BLOOD UREA NITROGEN 15 mg/dL 7-21 (BEAKER) (test figf=951) CREATININE (BEAKER) (test 1.05 mg/dL 0.57-1.25 zukg=462) GLUCOSE RANDOM (BEAKER) 252 mg/dL 70-105 (test yqlf=244) CALCIUM (BEAKER) (test 9.1 mg/dL 8.4-10.2 fvpw=116) EGFR (BEAKER) (test 74 mL/min/1.73 sq m ESTIMATED GFR IS NOT syga=8080) ACCURATE CREATININE CLEARANCE IN PREDICTING GLOMERULAR FILTRATION RATE. ESTIMATED GFR IS NOT APPLICABLE FOR DIALYSIS PATIENTS. BLOOD [id number] 07:27:00 Test Item Value Reference Range Comments Culture Observations (test code=COB1) NO GROWTH AFTER 5 DAYS BLOOD [id number] 07:27:00 Test Item Value Reference Range Comments Culture Observations (test code=COB1) NO GROWTH AFTER 5 DAYS GLUCOMETER GLUCOSE- LAB USE [id number] 16:23:00 Test Item Value Reference Range Comments GLUCOMETER (test code=GMG) 234 mg/dL 70-100 CLEANED METERMeter ID: [id number]: [id number] [facility] GLU[facility] GLUCOSE- LAB USE [id number] 11:57:00 Test Item Value Reference Range Comments GLUCOMETER (test code=GMG) 199 mg/dL 70-100 Meter ID: [id number]: 3966 TR[address] [facility] BASIC METABOLIC [id number] 06:19:00 Test Item Value Reference Range Comments [...] (test code=RBCMOR) NORMAL GLUCOMETER GLUCOSE- LAB USE [id number] 05:13:00 Test Item Value Reference Range Comments GLUCOMETER (test code=GMG) 181 mg/dL 70-100 CLEANED METERMeter ID: [id number]: [address] [place] GLUCOMETER GLUCOSE- LAB USE [id number] 20:40:00 Test Item Value Reference Range Comments GLUCOMETER (test code=GMG) 142 mg/dL 70-100 Meter ID: [id number]: [address] [place] GLUCOMETER GLUCOSE- LAB USE [id number] 16:25:00 Test Item Value Reference Range Comments GLUCOMETER (test code=GMG) 229 mg/dL 70-100 Meter ID: [id number]: [id number] DAVID [address]PENA GLUCOMETER GLUCOSE- LAB USE [id number] 06:39:00 Test Item Value Reference Range Comments GLUCOMETER (test code=GMG) 165 mg/dL 70-100 Meter ID: [id number]: 9130 JOE[address] HAMMON[address] BASIC METABOLIC [id number] 05:46:00 Test Item Value Reference Range Comments [...] (test code=RBCMOR) NORMAL GLUCOMETER GLUCOSE- LAB USE [id number] 22:00:00 Test Item Value Reference Range Comments GLUCOMETER (test code=GMG) 224 mg/dL 70-100 Meter ID: [id number]: 9130 JOEY HAMMONDS CARDIAC PROFILE 2017-10-15 11:04:00 [...] *WW*2017-10-15 01:41:41XR ABDOMEN 2 VIEWS W/PA CHEST *WW*Location:[address] services provided 10/15/2017 1:41 AMIndication: [id number]: Abdominal painComparison:None availableFindings:The lungs are equally and [...] code=31A) 30 IU/L <=78 CBC (INCLUDES AUTOMATED DIFFERENTIAL)*[id number] 01:10:00 Test Item Value Reference Range Comments [...]
[2019-07-07] MEDS ORDERED: FENTANYL CITR 100 MCG/2 ML ONE ×2 (07:05→08:42)
[2019-07-07] MEDS ORDERED: ONDANSETRON 4 MG/2 ML VIAL ONE (07:05)
[2019-07-07] MEDS ORDERED: NA CHLORIDE 0.9% 1,000 ML ONE (07:05)
[2019-07-07 07:17] LABS: Absolute Lymphocytes (CBC) 0.6 K/uL (0.7-4.9); Basophils % 0.5 % (0-1.3); Hematocrit 40.5 % (39.6-49.0); Lymphocytes % 3.7 % (15.3-44.8); MPV 9.6 fL (7.6-11.3); RBC Red Blood Cell Count 4.85 M/uL (4.33-5.43)
[2019-07-07 07:54] LABS: Blood Morphology Comment NOT SEEN (NOT SEEN); Platelet Estimate ADEQ
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
--- NOTE | 2019-07-08 11:42 | EKG ---
Test Date: 2019-07-07 Test Time: 06:36:32 Community Service Technician: NOVA MEASUREMENT RESULTS: Intervals: Rate: 131 FL: 140 QRSD: 122 QT: 330 QTc: 487 [place]: P: 41 FL: 140 QRS: 229 T: 17 INTERPRETIVE STATEMENTS: Sinus tachycardia Right bundle branch block Inferior infarct, age undetermined Abnormal ECG Compared to ECG 09/11/2018 15:20:03 Sinus rhythm no longer present Left-axis deviation no longer present Myocardial infarct finding still present Electronically Signed On 07-08-19 11:41:19 FOOTBALL SCOUT by Zeeshan Holguin
[2019-07-08 17:34] VITALS: TEMP 99.9
[2019-07-08 17:38] VITALS: BP 137/89; O2SAT 97
== END 2019-07-07 10:00 | disposition home or self-care (01) ==
LOC: ER 06:29
PROC: 2W3CX1Z Immobilization of Right Lower Arm using Splint (ICD-10-PCS; principal; 2019-07-07)
DX: S22.41XA Multiple fractures of ribs, right side, initial encounter for closed fracture (principal); S62.314A Displaced fracture of base of fourth metacarpal bone, right hand, initial encounter for closed fracture; V89.2XXD Person injured in unspecified motor-vehicle accident, traffic, subsequent encounter; I10 Essential (primary) hypertension; I25.2 Old myocardial infarction; E11.9 Type 2 diabetes mellitus without complications
CPT/HCPCS: 36415; 71045; 71260; 74177; 80048; 82947; 85025; 93005; 96374; 96375; 99285; J2405; J3010; J7030; Q9967

== ENCOUNTER 2021-11-25 09:10 | Emergency (ER) | payer SELFPAY ==
[2021-11-25] MEDS ORDERED: dexAMETHasone 10 MG/ML VIAL ONE (10:05)
[2021-11-25] MEDS ORDERED: CYCLOBENZAPRINE 10 MG TAB ONE (10:05)
[2021-11-25] MEDS ORDERED: HYDROCODONE/APAP 5/325 MG TAB ONE (10:05)
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
--- NOTE | 2021-11-25 10:07 | EDPHYS ---
Physician Documentation [facility] Name: Abilio Ling Age: 56 yrs Sex: Male : 1965 Arrival Date: 11/25/2021 Time: 09:14 Bed 11 Private MD: ED Physician Jad Pearson HPI: 11/25 09:55 This 56 yrs old Male presents to ER via Ambulatory with complaints of en Shingles, Back Pain. 09:55 Onset: The symptoms/episode began/occurred gradually, last week. 56 yo M on day 5 of en right sided shingles presents to ED with left low back pain radiating to left foot. Associated with numbness and tingling. Described as a burning pain. No bowel or bladder incontinence. Ambulates with a limp. Saw PCP last week for shingles pain, but sciatica started afterwards. Pt slurring words on arrival. Historical: - Allergies: 09:31 No Known Allergies; ph - PMHx: 09:31 Anxiety; Diabetes - NIDDM; Hypertension; Myocardial infarction; ph - Immunization history:: Adult Immunizations up to date. - Social history:: Smoking status: Patient denies any tobacco usage or history of. ROS: 09:55 Constitutional: Negative for fever, chills, and weight loss. en 09:55 Constitutional: Negative for body aches, chills, fatigue, fever. 09:55 Cardiovascular: Negative for chest pain, orthopnea, palpitations. 09:55 Respiratory: Negative for cough, shortness of breath. 09:55 Abdomen/GI: Negative for abdominal pain, nausea and vomiting. 09:55 Back: Positive for DROM 2/2 low back pain with pain radiating to left leg. . 09:55 Skin: Positive for shingles to right flank. 09:55 Neuro: Positive for tingling and burning pain to left leg. 09:55 All other systems are negative. Exam: 09:55 Constitutional: This is a well developed, well nourished patient who is awake, alert, en and in no acute distress. 09:55 Constitutional: The patient appears alert, awake, visibly uncomfortable 2/2 pain 09:55 Head/face: 09:55 Eyes: Conjunctiva: normal, no exudate, no injection. 09:55 ENT: Mouth: Lips: moist, Oral mucosa: Posterior pharynx: Airway: patent. 09:55 Neck: ROM/movement: is normal. 09:55 Cardiovascular: Rate: normal, Rhythm: regular, Pulses: no pulse deficits are appreciated, Heart sounds: normal, no murmur, no rub, no gallop. 09:55 Respiratory: the patient does not display signs of respiratory distress, mild respiratory distress is noted, Respirations: normal, Breath sounds: are clear throughout, no rales, rhonchi, no stridor, no wheezing. 09:55 Abdomen/GI: Inspection: abdomen appears normal, Bowel sounds: active, all quadrants, Palpation: abdomen is soft and non-tender, in all quadrants. 09:55 Abdomen/GI: Palpation: no pulsatile masses. 09:55 Back: No midline TTP, + left sided SI joint and paraspinal TTP. + SLR on left at 45 degrees. no foot drop, 5/5 PF/DF/EHL. antalgic gait with a cane. 2+ DP/PT pulses. 09:55 Musculoskeletal/extremity: NVI. 09:55 Skin: Vesicular rash to right flank. 09:55 Neuro: Orientation: is normal, Mentation: is normal, appropriate for stated age, Memory: appropriate for stated age. 09:55 Neuro: normal peroneal nerve sensation, 2+ patellar reflexes. 11:59 Psych: Pt slurring words ?intoxicated. en Vital Signs: 09:29 BP 130 / 93; Pulse 94; Resp 18; Temp 97.6; Pulse Ox 96% on R/A; Weight 85.73 kg; Height ph 5 ft. 7 in. (170.18 cm); 10:21 BP 121 / 92; Pulse 83; Resp 18; Pulse Ox 100% on R/A; ph 09:29 Body Mass Index 29.60 (85.73 kg, 170.18 cm) ph MDM: 09:55 Differential diagnosis: acute sciatica triggered by current shingles episode. Data en reviewed: vital signs, nurses notes, and as a result, I will discharge patient, will give norco and flexeril in ED. pt with DM and reports hyperglycemia with previous steroids. So will check accucheck in ED. If >250, will defer steroids and have pt f/u with PCP. If below 250, will give Rx for prednisone with strict instructions on glucose monitoring and to stop if >250. . 10:06 Patient medically screened. en 10:10 ED course: Pt's glucose 479, so will no be able to give steroids or d/c. Will check en labs, give insulin, and IVF. Will hold DC. 11:46 ED course: Repeat Glucose 294. Ok for d/c. Will defer steroids and dc with ketorolac en and robaxin with PCP f/u. Pt requesting narcotic Rx for pain. Explained that narcotic Rx was not warranted and that he was slurring when he arrived. Would benefit from steroids, but with glucose so high, will defer to PCP for close supervision. pt instructed to f/u with PCP for stronger pain medication as narcotics would not be provided during this visit. Pt then asked for Xanax for his anxiety. Also referred pt to PCP for those needs. . 07 10:10 Order name: CMP; Complete Time: 11:43 en 11/25 10:21 Order name: Glucose, Ancillary Testing; Complete Time: 11:43 EDMS 11/25 10:51 Order name: CBC with Automated Diff; Complete Time: 11:43 EDMS 11/25 11:57 Order name: Glucose, Ancillary Testing EDMS 11/25 10:10 Order name: Saline Lock; Complete Time: 10:43 en Administered Medications: 10:11 Drug: HYDROcodone-acetaminophen 5 mg-325 mg 1 tabs Route: PO; ph 11:21 Follow up: Response: No adverse reaction ph 10:11 Drug: Flexeril (cyclobenzaprine) 10 mg Route: PO; ph 11:21 Follow up: Response: No adverse reaction ph 10:14 Not Given (Hemodynamic Parameters): Decadron (dexamethasone) 10 mg IM once ph 10:50 Drug: Insulin Regular Human 10 units {Co-Signature: ss (Venecia Linares RN).} Route: IVP; ph Site: right forearm; 12:06 Follow up: Response: No adverse reaction; Blood sugar is lowered ss 10:50 Drug: NS 0.9% 1000 ml Route: IV; Rate: 1 bolus; Site: right forearm; ph 10:50 Follow up: IV Status: Completed infusion; IV Intake: 1000ml ss 11:35 Follow up: Response: No adverse reaction; IV Status: Completed infusion ph Disposition: 12:40 Co-signature as Attending Physician, Jad Pearson MD I agree with the assessment and kdr plan of care. Disposition Summary: 11/25/21 11:49 Discharge Ordered Location: Home(11/25/21 11:49) en Problem: an acute exacerbation(11/25/21 11:49) en Symptoms: have improved(11/25/21 11:49) en Condition: Stable(11/25/21 11:49) en Diagnosis - Diabetes mellitus due to underlying condition with hyperglycemia en - Lumbago with sciatica en - Shingles en Followup: en - With: Antonio Washington MD - When: 1 - 2 days - Reason: Discharge Instructions: - Discharge Summary Sheet en - Hyperglycemia en - Shingles, [id number] en - Sciatica, [id number] en Forms: - Medication Reconciliation Form en - Thank You Letter en - Antibiotic Education en - Prescription Opioid Use en Prescriptions: - ketorolac 10 mg Oral tablet - take 1 tablet by ORAL route every 4-6 hours not to exceed 40 mg in 24hrs; 12 en tablet; Refills: 0, Product Selection Permitted - methocarbamol 750 mg Oral Tablet - take 1 tablet by ORAL route 3 times per day; 15 tablet; Refills: 0, Product en Selection Permitted Signatures: Dispatcher [employer] EDMS Jad Pearson MD MD [facility] Wendi Tobias RN RN Bernadette Winkler PA PA en Vijay, Venecia SINGH ss Venecia Linares RN ss Corrections: (The following items were deleted from the chart) 10:12 10:06 Home en en 10:12 10:06 new en en 10:12 10:06 are unchanged en en 10:12 10:06 Stable en en 10:12 10:06 Lumbago with sciatica, left side en en 10:51 10:11 CBC without Diff+H.LAB.BRZ ordered. EDMS EDMS 10:51 10:12 GLUCOSE+C.LAB.BRZ ordered. EDMS EDMS 12:00 09:55 56 yo M on day 5 of right sided shingles presents to ED with left low back pain en radiating to left foot. Associated with numbness and tingling. Described as a burning pain. No bowel or bladder incontinence. Ambulates with a limp. Saw PCP last week for shingles pain, but sciatica started afterwards . en 12:03 11:46 ED course: Repeat Glucose 294. Ok for d/c. Will defer steroids and dc with en ketorolac and robaxin with PCP f/u. en
[2021-11-25] MEDS ORDERED: NA CHLORIDE 0.9% 1,000 ML ONE (10:25)
[2021-11-25] MEDS ORDERED: INSULIN -REGULAR HUMAN 50 UNIT/0.5 ML ML ONE (10:25)
[2021-11-25 11:08] LABS: Absolute Lymphocytes (CBC) 2.1 K/uL (0.7-4.9); Hematocrit 43.2 % (39.6-49.0); Lymphocytes % 22.1 % (15.3-44.8); MCV 84.3 fL (80-100); MPV 9.1 fL (7.6-11.3); RBC Red Blood Cell Count 5.12 M/uL (4.33-5.43)
[2021-11-25 11:36] LABS: Albumin 3.6 g/dL (3.4-5.0); Bilirubin Total 0.5 mg/dL (0.2-1.0); Potassium 4.1 mmol/L (3.5-5.1)
[2021-11-25 12:20] VITALS: TEMP 97.6
[2021-11-25 12:22] VITALS: BP 121/92; O2SAT 100
== END 2021-11-25 12:06 | disposition home or self-care (01) ==
LOC: ER 09:10
DX: M54.42 Lumbago with sciatica, left side (principal); E11.65 Type 2 diabetes mellitus with hyperglycemia; B02.9 Zoster without complications; I10 Essential (primary) hypertension
CPT/HCPCS: 36415; 80053; 82947; 85025; 96374; 99284; J1100; J1815; J7030